=== PATIENT | male | born 1945 | race Caucasian/White ===

== ENCOUNTER → 2016-08-25 | Outpatient (CLI) | payer MEDICARE ==
--- NOTE | 2016-08-25 08:57 | US ---
EXAMINATION TYPE: US carotid duplex BILAT DATE OF EXAM: 08/25/2016 8:29 AM COMPARISON: In pacs CLINICAL HISTORY: R42 Dizziness. Giddiness EXAM MEASUREMENTS: RIGHT: Peak Systolic Velocity (PSV) cm/sec ----- Right CCA: 97.2 ----- Right ICA: 67.1 ----- Right ECA: 97.3 ICA/CCA ratio: 0.7 RIGHT: End Diastole cm/sec ----- Right CCA: 17.7 ----- Right ICA: 18.5 ----- Right ECA: 2.1 LEFT: Peak Systolic Velocity (PSV) cm/sec ----- Left CCA: 94.1 ----- Left ICA: 76.6 ----- Left ECA: 107.0 ICA/CCA ratio: 0.8 LEFT: End Diastole cm/sec ----- Left CCA: 20.6 ----- Left ICA: 22.7 ----- Left ECA: 11.1 VERTEBRALS (direction of flow): Right Vertebral: Antegrade Left Vertebral: Antegrade TECHNOLOGIST IMPRESSION: Bilateral intimal thickening, no elevated velocities, no significant stenos is Right thyroid: 1.6 x 1.2 x 1.2cm complex nodule, 1.5 x 1.2 x 1.4cm cystic nodule Left thyroid: 1.8 x 1.0 x 1.5cm cystic nodule IMPRESSION: I DO NOT SEE EVIDENCE OF A HEMODYNAMICALLY SIGNIFICANT STENOSIS IN EITHER CAROTID SYSTEM. Criteria for Assigning % of Stenosis / Diameter reduction (Estimation based on the indirect measurements of the internal carotid artery velocities (ICA PSV). 1. Normal (no stenosis)=ICA PSV < 125 cm/s: ratio < 2.0: ICA EDV<40 cm/s. 2. Less than 50% stenosis=ICA PSV < 125 cm/s: ratio < 2.0: ICA EDV<40 cm/s. 3. 50 to 69% stenosis=ICA PSV of 125 to 230 cm/s: ration 2.0 ? 4.0: ICA EDV 40-100 cm/s. 4. Greater than 70% stenosis to near occlusion= ICA PSV > 230 cm/s: ratio > 4.0: ICA EDV > 100 cm/s. 5. Near occlusion= ICA PSV velocities may be low or undetectable: variable ratio and ICA EDV. 6. Total occlusion=unable to detect flow.
== END | disposition home or self-care (01) ==
LOC: RADUSWWP 07:51
PROVIDERS: ATTEND Family Medicine
DX: R42 Dizziness and giddiness (principal)
CPT/HCPCS: 93880

== ENCOUNTER 2016-09-09 12:13 | Day surgery (SDC) | payer MEDICARE ==
[~2016-09-09 12:13] MED LIST: ALPRAZolam 0.25 MG TAB PO ONE
[2016-09-09 12:37] VITALS: RESP 14; TEMP 97.7
[2016-09-09 13:44] VITALS: BP 137/71; PULSE 49
--- NOTE | 2016-09-09 14:01 | US ---
ULTRASOUND GUIDED FNA THYROID BIOPSY: CLINICAL HISTORY: Complex right thyroid nodule, right cystic nodule, left cystic nodule FINDINGS: The procedure was explained to the patient. The risks, complications, benefits and alternatives were discussed and any questions were answered. Informed consent was obtained. Patient was placed supin e on the ultrasound table and prepped and draped in the usual sterile fashion. Utilizing a 25 gauge needle, five passes were made into the complex right thyroid nodule. A single pass was made into eac h simple appearing cyst, one within the right lobe and a second within the left lobe. Sample sent to pathology. Patient was stable throughout the procedure. Pathology is pending. All elements of maximal barrier technique were utilized. IMPRESSION: 1. Successful ultrasound guided FNA thyroid biopsy of 3 nodules.
== END 2016-09-09 13:55 | disposition home or self-care (01) ==
LOC: RADPROMAIN 12:13
PROVIDERS: ATTEND Family Medicine
DX: E04.2 Nontoxic multinodular goiter (principal)
CPT/HCPCS: 10022; 76942; 88173; 88305

== ENCOUNTER 2016-10-25 11:20 | Day surgery (SDC) | payer MEDICARE ==
[2016-10-20 13:08] VITALS: BMI 23.7
[~2016-10-25 11:20] MED LIST changes: -ALPRAZolam 0.25 MG TAB PO ONE; +LACTATED RINGERS 1,000 ML IV SCH; +LIDOCAINE 1% 20 ML VIAL (10MG/ML) FOR IV START INTRADERMA PRN
[2016-10-25 12:04] VITALS: RESP 16; TEMP 96.5
[2016-10-25] MEDS ORDERED: LIDOCAINE 1% INJ 10MG/ML (20 ML MDV) ONE (13:50)
[2016-10-25] MEDS ORDERED: PROPOFOL 10 MG/ML 20 ML VIAL IV ONE (13:50)
--- NOTE | 2016-10-25 14:19 | P.PCN ---
Date of Procedure: 10/25/16 Procedure(s) Performed: Procedure: Total colonoscopy. Preoperative diagnosis: Change in bowel habits. Preoperative diagnosis: Exam within normal limits. Preparation: HalfLytely prep. Sedation: Was provided by anesthesia. Brief clinical history: The patient is a 71-year-old male who is referred for this evaluation because of recent change in bowel habits. He seems to be responding to fiber supplement. The patient had no prior colonoscopy and this evaluation is to rule out with confidence neoplasia. Procedure: With the patient on his left lateral decubitus position and after informed consent and adequate sedation, the perianal area was inspected and it did not show any fissures or fistulas. There were no masses felt on digital rectal examination. The Olympus CFQ 160L video colonoscope was then inserted in the rectum in the usual fashion and advanced to the cecum. The mucosa appeared healthy. No polyps or tumors were seen or any obvious diverticular disease or other pathology. I retroflexed endoscope in the rectum before the endoscope was withdrawn. The patient tolerated the procedure well. Plan: The patient was reassured. Will continue current management and he will follow up with you as planned. I will be happy to see in the future if needed.
[2016-10-25 14:48] VITALS: BP 120/65; PULSE 45
== END 2016-10-25 15:23 | disposition home or self-care (01) ==
LOC: ORWHC2ENDO 11:20
DX: R19.4 Change in bowel habit (principal); I48.91 Unspecified atrial fibrillation; I10 Essential (primary) hypertension; E78.5 Hyperlipidemia, unspecified; E07.9 Disorder of thyroid, unspecified; Z79.899 Other long term (current) drug therapy
CPT/HCPCS: 45378; J2001; J2704

== ENCOUNTER → 2017-05-12 | Outpatient (CLI) | payer MEDICARE ==
--- NOTE | 2017-05-12 17:36 | US ---
EXAMINATION TYPE: US thyroid st tissue head/neck DATE OF EXAM: 05/12/2017 COMPARISON: 03/04/2016 CLINICAL HISTORY: E04.1 Thyroid nodule. GLAND SIZE: Right Lobe: 5.3 x 2.3 x 2.1 cm Overall Parenchyma: homogenous Left Lobe: 5.3 x 1.9 x 1.4 cm Overall Parenchyma: homogeneous Isthmus Thickness: 0.2 cm NODULES RIGHT: # of nodules measured on right: 2 largest of multiple 1. 1.2 X 1.1 x 1.0 cm isoechoic mixed nodule at the mid pole with poorly defined margins; interrupt ed peripheral calcification. This nodule is wider than tall and shows intranodular vascularity. Prior size: 1.2 x 1.0 x 1.0 cm 2. 1.5 X 0.7 x 0.7 cm hypoechoic mixed nodule at the lower pole with well-defined margins. This nod ule is wider as is tall and shows no intranodular vascularity. Prior size: 1.7 x 1.6 x 1.1 cm LEFT: # of nodules measured on left: 2 largest of multiple 1. 1.0 X 0.5 x 0.5 cm hypoechoic mixed nodule at the upper pole with well-defined margins. This no dule is wider than tall and shows no intranodular vascularity. Prior size: 1.8 x 1.0 x 1.2 cm 2. 1.0 X 0.7 x 0.6 cm isoechoic mixed nodule at the lower pole with poorly defined margins. This no dule is wider than tall and shows no intranodular vascularity. Prior size: 0.7 x 0.6 x 0.5 cm ISTHMUS: # of nodules measured in the isthmus: 0 Bilateral neck scanned, no evidence of lymphadenopathy. IMPRESSION: Findings are consistent with multinodular goiter. No dominant thyroid mass. No adverse change compare d to old exam.
== END | disposition home or self-care (01) ==
LOC: RADUSWWP 16:14
PROVIDERS: ATTEND Family Medicine
DX: E04.1 Nontoxic single thyroid nodule (principal)
CPT/HCPCS: 76536

== ENCOUNTER → 2017-11-21 | Outpatient (CLI) | payer MEDICARE ==
--- NOTE | 2017-11-21 14:28 | US ---
EXAMINATION TYPE: US thyroid st tissue head/neck DATE OF EXAM: 11/21/2017 COMPARISON: Ultrasound 05/12/2017 CLINICAL HISTORY: E04.1 Nontoxic Single Thyroid Nodule, M79.652 Pain. Follow up thyroid nodules GLAND SIZE: Right Lobe: 6.2 x 2.6 x 2.1 cm Overall Parenchyma: heterogenous Left Lobe: 5.4 x 1.9 x 2.1 cm Overall Parenchyma: heterogeneous Isthmus Thickness: 0.25 cm NODULES RIGHT: # of nodules measured on right: 2 1. 1.2 X 1.1 x 1.0 cm isoechoic mixed nodule at the mid pole with poorly defined margins; . This n odule is wider than tall and shows intranodular vascularity. Prior size: 1.2 x 1.1 x 1.0 cm 2. 1.5 X 0.6 x 1.0 cm mixed nodule at the lower pole with well-defined margins; . This nodule is wi rito than tall and shows no intranodular vascularity. Prior size: 1.5 x 0.7 x 0.7 cm LEFT: # of nodules measured on left: 2 1. 1.3 X 0.8 x 1.1 cm mixed nodule at the upper pole with well-defined margins; . This nodule is w ider than tall and shows no intranodular vascularity. This has increased in size from prior study alt danni a large cystic component with an intramural nodule. Prior size: 1.0 x 0.5 x 0.5 cm 2. 1.0 X 0.6 x 0.9 cm isoechoic mixed nodule at the lower pole with poorly defined margins; . This nodule is wider than tall and shows no intranodular vascularity. Prior size: 1.0 x 0.7 x 0.6 cm ISTHMUS: # of nodules measured in the isthmus: 0 Bilateral neck scanned, normal appearing lymph nodes left neck IMPRESSION: 1. Bilateral thyroid nodules. 2. Left thyroid nodule slightly increased in size from prior study currently measuring 1.3 x 0.8 x 1. 1 cm which previously measured 1.0 x 0.5 x 0.5 cm.
--- NOTE | 2017-11-21 14:30 | US ---
EXAMINATION TYPE: US venous doppler duplex LE LT DATE OF EXAM: 11/21/2017 1:41 PM COMPARISON: NONE CLINICAL HISTORY: E04.1 Nontoxic Single Thyroid Nodule, M79.652 Pain. Weakness left leg after a fall earlier this year (July or August) SIDE PERFORMED: Left TECHNIQUE: The lower extremity deep venous system is examined utilizing real time linear array sonog jennifer with graded compression, doppler sonography and color-flow sonography. VESSELS IMAGED: External Iliac Vein (EIV) Common Femoral Vein Deep Femoral Vein Greater Saphenous Vein * Femoral Vein Popliteal Vein Small Saphenous Vein * Proximal Calf Veins (* superficial vessels) Left Leg: No evidence of DVT as visualized IMPRESSION: 1. No ultrasound evidence deep venous thrombosis left lower extremity.
== END | disposition home or self-care (01) ==
LOC: RADUSWWP 13:13
PROVIDERS: ATTEND Family Medicine
DX: E04.1 Nontoxic single thyroid nodule (principal); M79.652 Pain in left thigh
CPT/HCPCS: 76536

== ENCOUNTER → 2017-12-13 | Outpatient (CLI) | payer MEDICARE ==
--- NOTE | 2017-12-13 16:59 | US ---
EXAMINATION TYPE: US thyroid st tissue head/neck DATE OF EXAM: 12/13/2017 COMPARISON: 11/21/2014 CLINICAL HISTORY: EO4.9 G91.9. GLAND SIZE: Right Lobe: 6.1 x 1.9 x x2.2 cm Overall Parenchyma: homogenous Left Lobe: 4.8 x 1.9 x 2.3 cm Overall Parenchyma: homogeneous Isthmus Thickness: 0.3 cm NODULES RIGHT: # of nodules measured on right: 3 1. 1.1 X 1.0 x 1.1 cm isoechoic nodule at the mid pole with poorly defined margins; . This nodule is wider than tall and shows intranodular vascularity. Prior size: 1.2 x 1.1 x 1.0 cm 2. 1.3 X 0.7 x 1.0 cm hypoechoic cystic nodule at the lower pole with margins; . This nodule is wid er than tall and shows no intranodular vascularity. Prior size: 1.5 x 0.6 x 1.0 cm 3. 0.6 X 0.4 x 0.5 cm hypoechoic mixed nodule at the lower pole with well-defined margins; . This n odule is wider than tall and shows no intranodular vascularity. Prior size: no prior LEFT: # of nodules measured on left: 3 1. 1.2 X 0.9 x 1.1 cm hypoechoic cystic nodule at the upper pole with well-defined margins; . This nodule is wider than tall and shows no intranodular vascularity. Prior size: 1.3 x 0.8 x 1.1 cm 2. 0.5 X 0.4 x 0.5 cm hypoechoic mixed nodule at the lower pole with poorly defined margins; . This nodule is wider than tall and shows no intranodular vascularity. Prior size: 1.0 x 0.6 x 0.9 cm 3. 0.4 X 0.3 x 0.4 cm hypoechoic cystic nodule at the mid pole with well-defined margins; . This no dule is wider than tall and shows no intranodular vascularity. Prior size: no prior ISTHMUS: # of nodules measured in the isthmus: 0 Bilateral neck scanned, no evidence of lymphadenopathy. IMPRESSION: Multiple findings in the thyroid gland bilaterally. No adverse change compared to old exam. This is c onsistent with mild multinodular goiter. No dominant mass.
--- NOTE | 2017-12-13 17:24 | CT ---
EXAMINATION TYPE: CT brain wo con DATE OF EXAM: 12/13/2017 COMPARISON: 11/25/2014 HISTORY: Hydrocephalus CT DLP: 1210 mGycm Automated exposure control for dose reduction was used. FINDINGS: There is enlargement of the ventricles. There is cortical hypodensity that measures 1.5 cm in the pos terior right occipital lobe. There is frontal horn left lateral ventricle extending to the left front al convexity consistent with porencephaly. There is cortical thinning of left posterior frontal lobe. There is no midline shift. There is no sign of intracranial hemorrhage. The calvarium is intact. The re is thinning of the corpus callosum. There is some mucosal thickening in the left maxillary sinus. 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 THIS APPEARS STABLE. SMALL CORTICAL INFARCT RIGHT OCCIPITAL LOBE APPEARS NEW COMPARED TO OLD EXAM.
== END | disposition home or self-care (01) ==
LOC: RADUSMAIN 16:00
PROVIDERS: ATTEND Family Medicine
DX: E04.2 Nontoxic multinodular goiter (principal); G91.1 Obstructive hydrocephalus; I63.9 Cerebral infarction, unspecified
CPT/HCPCS: 70450; 76536

== ENCOUNTER 2017-12-21 17:10 | Inpatient (IN) | payer MEDICARE ==
[2017-12-21] MEDS ORDERED: SODIUM CHLORIDE 0.9% 1,000 ML IV STA (18:07)
[2017-12-21] MEDS ORDERED: METOCLOPRAMIDE 5 MG/ML 2 ML VIAL IVP STA (18:08)
[2017-12-21] MEDS ORDERED: MECLIZINE 12.5 MG TAB PO STA (18:08)
--- NOTE | 2017-12-21 18:13 | ED ---
General Adult HPI - General Chief complaint: Dizziness Stated complaint: DIZZINESS Time Seen by Provider: 12/21/17 18:00 Source: patient, family, RN notes reviewed Mode of arrival: ambulatory Limitations: no limitations - History of Present Illness Initial comments: Patient is a pleasant 72-year-old male presenting to the emergency Department with complaints of dizziness. Patient has a history of some chronic dizziness. Patient was using a weed whacker today and became more dizzy than normal. Patient feels like he is spinning. Symptoms still continue. Symptoms are worse with upright position. Patient is somewhat a poor historian. does help somewhat with providing history. Patient does have a history of previous TIA that had associated dizziness with it. No confusion. No isolated area of weakness. Patient has had difficulty walking since onset of symptoms today. Patient feels off balance. - Related Data Home Medications Medication Instructions Recorded Confirmed Benazepril [Lotensin] 10 mg PO QAM 11/25/14 12/21/17 Finasteride [Proscar] 5 mg PO QAM 11/25/14 12/21/17 Pravastatin Sodium [Pravachol] 40 mg PO QAM 11/25/14 12/21/17 Vit C/E/Zn/Coppr/Lutein/Zeaxan 1 cap PO BID 10/20/16 12/21/17 [Preservision Areds 2 Softgel] Carbidopa-Levodopa 25-100 mg 1.5 tab PO BID@,08/05/17 12/21/17 [Sinemet 25-100] Cholecalciferol [Vitamin D3] 1,000 unit PO DAILY 08/05/17 12/21/17 Multivitamins, Thera [Multivitamin 1 tab PO DAILY 08/05/17 12/21/17 (formulary)] [place]-3 Fatty Acids [[place]-3] 1,000 mg PO DAILY 08/05/17 12/21/17 Propranolol [Inderal] 40 mg PO QAM 08/05/17 12/21/17 amLODIPine [Norvasc] 2.5 mg PO QAM 08/05/17 12/21/17 Amiodarone [Cordarone] 100 mg PO DAILY 12/21/17 12/21/17 OLANZapine [ZyPREXA] 7.5 mg PO HS 12/21/17 12/21/17 Propranolol [Inderal] 20 mg PO HS 12/21/17 12/21/17 Previous Rx's Medication Instructions Recorded Aspirin EC [Ecotrin Low Dose] 81 mg PO DAILY #30 tablet. 11/28/14 Allergies Allergy/AdvReac Type Severity Reaction Status Date / Time No Known Allergies Allergy Verified 12/21/17 18:33 Review of Systems ROS Statement: Those systems with pertinent positive or pertinent negative responses have been documented in the HPI. ROS Other: All systems not noted in ROS Statement are negative. Constitutional: Denies: fever Eyes: Denies: eye pain ENT: Denies: ear pain Respiratory: Denies: cough Cardiovascular: Denies: chest pain Endocrine: Denies: fatigue Gastrointestinal: Denies: abdominal pain Genitourinary: Denies: dysuria Musculoskeletal: Denies: back pain Skin: Denies: rash Neurological: Reports: abnormal gait, vertigo. Denies: headache, weakness, confusion Past Medical History Past Medical History: Atrial Fibrillation, CVA/TIA, Hearing Disorder / Deafness , Hyperlipidemia, Hypertension, Thyroid Disorder History of Any Multi-Drug Resistant Organisms: None Reported Past Surgical History: Hernia Repair, Orthopedic Surgery Additional Past Surgical History / Comment(s): Right femur surgery, thyroid biopsy Past Anesthesia/Blood Transfusion Reactions: No Reported Reaction Past Psychological History: No Psychological Hx Reported Smoking Status: Never smoker Past Alcohol Use History: None Reported Past Drug Use History: None Reported - Past Family History Mother Family Medical History: Cancer General Exam Limitations: no limitations General appearance: alert, in no apparent distress Head exam: Present: atraumatic Eye exam: Present: normal appearance, PERRL, EOMI, nystagmus (Patient does have horizontal nystagmus) ENT exam: Present: normal oropharynx Neck exam: Present: normal inspection Respiratory exam: Present: normal lung sounds bilaterally Cardiovascular Exam: Present: bradycardia GI/Abdominal exam: Present: soft. Absent: tenderness Extremities exam: Present: normal inspection Neurological exam: Present: alert, CN II-XII intact. Absent: motor sensory deficit Expanded Neurological exam: Present: protecting the airway Speech: Present: fluid speech Cranial nerves: EOM's Intact: Normal, Facial Sensation: Normal Cerebellar function: Finger to Nose: Normal Sensory exam: Upper Extremity Light Touch: Normal, Lower Extremity Light Touch: Normal Motor strength exam: RUE: 5, LUE: 5, RLE: 5, LLE: 5 Eye Response: (4) open spontaneously Motor Response: (6) obeys commands Verbal Response: (5) oriented Psychiatric exam: Present: normal affect, normal mood Skin exam: Present: normal color Course Vital Signs 12/21/17 12/21/17 17:17 18:42 Temperature 98.5 F Pulse Rate 52 L 48 L Respiratory 18 16 Rate Blood Pressure 130/73 129/67 O2 Sat by Pulse 98 96 Oximetry EKG Findings - EKG Comments: EKG Findings:: Sinus bradycardia 49. AK 186. QRS 108. QT 468. QTC 422. Normal axis. Normal QRS. T wave inversion V1 through V5 Medical Decision Making - Medical Decision Making Patient reevaluated and resting comfortably in bed. Patient and family updated on results and plan. Dr. Cedillo has been paged for admission, covering for Dr. storey, who admits for Dr. Winters. - Lab Data Result diagrams: 12/21/17 18:30 12/21/17 18:30 Lab Results 12/21/17 12/21/17 12/21/17 Range/Units 18:30 18:30 18:30 WBC 10.4 (3.8-10.6) k/uL RBC 4.57 (4.30-5.90) m/uL Hgb 14.4 (13.0-17.5) gm/dL Hct 42.3 (39.0-53.0) % MCV 92.7 (80.0-100.0) fL MCH 31.6 (25.0-35.0) pg MCHC 34.1 (31.0-37.0) g/dL RDW 13.7 (11.5-15.5) % Plt Count 193 (150-450) k/uL Neutrophils % 78 % Lymphocytes % 14 % Monocytes % 5 % Eosinophils % 2 % Basophils % 1 % Neutrophils # 8.1 H (1.3-7.7) k/uL Lymphocytes # 1.4 (1.0-4.8) k/uL Monocytes # 0.5 (0-1.0) k/uL Eosinophils # 0.2 (0-0.7) k/uL Basophils # 0.1 (0-0.2) k/uL PT (9.0-12.0) sec INR (<1.2) APTT (22.0-30.0) sec Sodium 142 (137-145) mmol/L Potassium 4.7 (3.5-5.1) mmol/L Chloride 109 H (98-107) mmol/L Carbon Dioxide 25 (22-30) mmol/L Anion Gap 8 mmol/L BUN 18 (9-20) mg/dL Creatinine 1.00 (0.66-1.25) mg/dL Est GFR (CKD-EPI)AfAm 86 (>60 ml/min/1.73 sqM) Est GFR (CKD-EPI)NonAf 74 (>60 ml/min/1.73 sqM) Glucose 115 H (74-99) mg/dL Calcium 9.4 (8.4-10.2) mg/dL Total Bilirubin 0.6 (0.2-1.3) mg/dL AST 29 (17-59) U/L ALT 34 (21-72) U/L Alkaline Phosphatase 75 (38-126) U/L Total Creatine Kinase 71 (55-170) U/L Total Protein 6.1 L (6.3-8.2) g/dL Albumin 3.9 (3.5-5.0) g/dL 12/21/17 Range/Units 18:30 WBC (3.8-10.6) k/uL RBC (4.30-5.90) m/uL Hgb (13.0-17.5) gm/dL Hct (39.0-53.0) % MCV (80.0-100.0) fL MCH (25.0-35.0) pg MCHC (31.0-37.0) g/dL RDW (11.5-15.5) % Plt Count (150-450) k/uL Neutrophils % % Lymphocytes % % Monocytes % % Eosinophils % % Basophils % % Neutrophils # (1.3-7.7) k/uL Lymphocytes # (1.0-4.8) k/uL Monocytes # (0-1.0) k/uL Eosinophils # (0-0.7) k/uL Basophils # (0-0.2) k/uL PT 10.2 (9.0-12.0) sec INR 1.0 (<1.2) APTT 22.2 (22.0-30.0) sec Sodium (137-145) mmol/L Potassium (3.5-5.1) mmol/L Chloride (98-107) mmol/L Carbon Dioxide (22-30) mmol/L Anion Gap mmol/L BUN (9-20) mg/dL Creatinine (0.66-1.25) mg/dL Est GFR (CKD-EPI)AfAm (>60 ml/min/1.73 sqM) Est GFR (CKD-EPI)NonAf (>60 ml/min/1.73 sqM) Glucose (74-99) mg/dL Calcium (8.4-10.2) mg/dL Total Bilirubin (0.2-1.3) mg/dL AST (17-59) U/L ALT (21-72) U/L Alkaline Phosphatase (38-126) U/L Total Creatine Kinase (55-170) U/L Total Protein (6.3-8.2) g/dL Albumin (3.5-5.0) g/dL - Radiology Data Radiology results: image reviewed (Chest x-ray shows previous left rib fractures and several scarring. Computed tomography scan of the brain shows hydrocephalus. Old left frontal lobe encephalomalacia.) Disposition Clinical Impression: Ataxia, Hydrocephalus Disposition: ADMITTED IP TO THIS [facility] Referrals: Hugh Winters DO [Primary Care Provider] - 1-2 days Decision Time: 19:23
[2017-12-21 18:49] LABS: Basophils # (A) 0.1 k/uL (0-0.2); Basophils % (A) 1 %; Eosinophils # (A) 0.2 k/uL (0-0.7); Eosinophils % (A) 2 %; HCT 42.3 % (39.0-53.0); HGB 14.4 gm/dL (13.0-17.5); Lymphocytes # (A) 1.4 k/uL (1.0-4.8); Lymphocytes % (A) 14 %; MCH 31.6 pg (25.0-35.0); MCHC 34.1 g/dL (31.0-37.0); MCV 92.7 fL (80.0-100.0); Mean Platelet Volume 8.7; Monocytes # (A) 0.5 k/uL (0-1.0); Monocytes % (A) 5 %; Neutrophils # (A) 8.1 k/uL (1.3-7.7); Neutrophils % (A) 78 %; Platelet Count 193 k/uL (150-450); RBC 4.57 m/uL (4.30-5.90); RDW 13.7 % (11.5-15.5); WBC 10.4 k/uL (3.8-10.6)
[2017-12-21 18:56] LABS: Albumin 3.9 g/dL (3.5-5.0); Calcium 9.4 mg/dL (8.4-10.2); Potassium 4.7 mmol/L (3.5-5.1); Total Bilirubin 0.6 mg/dL (0.2-1.3); Total Protein 6.1 g/dL (6.3-8.2)
[2017-12-21 19:03] LABS: Partial Thromboplastin Time 22.2 sec (22.0-30.0); Prothrombin Time 10.2 sec (9.0-12.0)
--- NOTE | 2017-12-21 19:04 | CT ---
EXAMINATION TYPE: CT brain wo con DATE OF EXAM: 12/21/2017 COMPARISON: 12/13/2017 HISTORY: Dizziness today. CT DLP: 801.5 mGycm Automated exposure control for dose reduction was used. FINDINGS: There is enlargement of the ventricles. There is no mass effect nor midline shift. There is old encep halomalacia in the left frontal lobe with enlargement of frontal horn left lateral ventricle. There i s no evidence of intracranial hemorrhage. The calvarium is intact. IMPRESSION: HYDROCEPHALUS. NO EVIDENCE OF CEREBRAL EDEMA. OLD LEFT FRONTAL LOBE ENCEPHALOMALACIA. NO CHANGE ROSA RED TO OLD EXAM.
[2017-12-21 19:08] LABS: Creatine Kinase 71 U/L (55-170)
--- NOTE | 2017-12-21 19:09 | XR ---
EXAMINATION TYPE: XR chest 2V DATE OF EXAM: 12/21/2017 COMPARISON: August 05, 2017 HISTORY: Dizziness TECHNIQUE: Frontal and lateral views of the chest are obtained. FINDINGS: There are old left-sided healed rib fractures. Heart and mediastinum are within normal hanna its. There is no heart failure. There is minimal density at the left cardiophrenic angle consistent w ith scarring. There is no pleural effusion. Thoracic spine is intact. IMPRESSION: Multiple old left-sided rib fractures. Mild pleural and pulmonary scarring at the left c ardiophrenic angle. No adverse change overall compared to old exam. No evidence of acute lung disease .
[2017-12-21 19:22] LABS: Creatine Kinase MB 0.7 ng/mL (0.0-2.4); Troponin I <0.012 ng/mL (0.000-0.034)
[2017-12-21] MEDS ORDERED: ASPIRIN 325 MG TAB PO STA (19:24)
[2017-12-21 20:48] VITALS: BMI 22.9
[2017-12-21] MEDS ORDERED: PROPRANOLOL 20 MG TAB PO SCH (21:15)
[2017-12-21] MEDS: OLANZapine 2.5 MG TAB PO SCH (21:58)
[2017-12-21] MEDS ORDERED: MECLIZINE 12.5 MG TAB PO PRN (23:04)
--- NOTE | 2017-12-21 23:55 | HP ---
HISTORY AND PHYSICAL DATE OF SERVICE: 12/21/2017 CHIEF COMPLAINT: Dizziness. HISTORY OF PRESENT ILLNESS: This 72-year-old gentleman with a past medical history of TIAs, hydrocephalus with old left frontal stroke, history of spinal meningitis atrial fibrillation, hernia repair, DJD, being followed by Dr. Winters in the outpatient setting, was apparently doing some weed whacking today. The patient felt dizzy. The patient almost fell and the patient felt like the surroundings were spinning and the patient came to [facility] and admitted for further evaluation and treatment. The patient also has some dysarthria. The patient has minimal weakness on the right side. The CT scan of the brain was done which showed evidence of hydrocephalus. No evidence of cerebral edema and old left frontal encephalomalacia. There is no history of any fever, rigors. No history of headache, loss of consciousness, seizures. PAST MEDICAL HISTORY: History of old CVA, TIA, hydrocephalus, atrial fibrillation, CVA, TIA, hypertension, hyperlipidemia, hypothyroidism. MEDICATION PRIOR TO ADMISSION: Include home medications are: 1. Inderal 20 mg q.h.s. and. 2. Norvasc 2.5 mg daily. 3. Vitamin C. 4. Zinc 1 p.o. b.i.d. 5. Inderal 40 mg q.a.m. 6. Propofol 40 mg q.a.m. 7. [place]-3 1000 mg p.o. daily. 8. Zyprexa 7.2 mg q.h.s. 9. Multivitamins 1 p.o. daily. 10.Proscar 5 mg q.a.m. 11.Vitamin D 3000 daily. 12.Sinemet 25/100, 1.5 b.i.d. 13.Lotensin 10 mg q.a.m. 14.Ecotrin 81 mg daily. 15.Cordarone 100 mg p.o. daily. ALLERGIES: None. FAMILY HISTORY: History of cancer in the family. SOCIAL HISTORY: No history of smoking. No history of alcohol intake. REVIEW OF SYSTEMS: ENT: Mentioned earlier. CARDIOVASCULAR: No angina, palpitations. RESPIRATORY: As mentioned earlier. GI: No nausea or vomiting. : No dysuria. NERVOUS: As mentioned earlier. ALLERGY/IMMUNOLOGY: No asthma or hay fever. MUSCULOSKELETAL: As mentioned earlier. HEMATOLOGY/ONCOLOGY: No history of anemia. ENDOCRINE: No history of diabetes, hypothyroidism. CONSTITUTIONAL: As mentioned earlier. DERMATOLOGY: Negative. RHEUMATOLOGY: Negative. PSYCHIATRY: As mentioned earlier. PHYSICAL EXAMINATION: The patient alert, oriented x3. Pulse is 48, blood pressure 139/67, respirations 16, temperature 97.7, pulse ox 96% on 2L. HEENT: Conjunctivae normal. Oral mucosa moist. NECK: No jugular venous distention. No carotid bruits. No lymph node enlargement. CARDIOVASCULAR: S1, S2 muffled. RESPIRATORY: Breath sounds diminished in the bases. No rhonchi. No crackles. ABDOMEN: Soft, nontender. No mass palpable. LEGS: No edema. No swelling. NERVOUS SYSTEM: Higher functions as mentioned earlier. Cranial nerves 2-12 grossly intact. No nystagmus. No diplopia. Otherwise, mild diffuse weakness. Mild diffuse tremors also present. No incoordination. Minimal gait dysfunction present. SKIN: No ulcer, rash or bleeding. LYMPHATIC: No lymphadenopathy in neck or axillae. JOINTS: No active deforming arthropathy. LABS: CBC within normal limits and chloride is 109 and glucose 115. ASSESSMENT: 1. Dizziness, possible acute transient ischemic attack. 2. History of hydrocephalus. 3. Old left frontal encephalomalacia. 4. Atrial fibrillation history. 5. Sinus bradycardia. 6. Cerebrovascular accident, transient ischemic attack. 7. Hearing loss and deafness. 8. Hypertension. 9. Hyperlipidemia. 10.Hypothyroidism. 11.History of hernia repair. RECOMMENDATION AND DISCUSSION: Recommend to continue current medical management, symptomatic treatment and antiplatelet agents. Neurology consultation. Cardiology consultation for bradycardia. Neurovascular workup, including carotid Doppler and 2D echo. The EKG showed nonspecific ST-T changes as well. We will also check a lipid profile to complete the workup, also get a PT, OT evaluation to evaluate for any gait dysfunction as well. I would also recommend DVT prophylaxis as well. The prognosis guarded because of the multiple complex medical issues and use Antivert on a p.r.n. basis. Further recommendations to follow. A copy of this dictation will be forwarded to Dr. Winters, who is the primary physician. TAMY / BRYNN: [id number] / MTDD
--- NOTE | 2017-12-22 00:52 | US ---
EXAMINATION TYPE: US carotid duplex BILAT DATE OF EXAM: 12/21/2017 COMPARISON: 08/25/2016 CLINICAL HISTORY: Stenosis. Dizziness EXAM MEASUREMENTS: RIGHT: Peak Systolic Velocity (PSV) cm/sec ----- Right CCA: 79.8 ----- Right ICA: 75.5 ----- Right ECA: 84.2 ICA/CCA ratio: 0.9 RIGHT: End Diastole cm/sec ----- Right CCA: 12.9 ----- Right ICA: 7.4 ----- Right ECA: 0 LEFT: Peak Systolic Velocity (PSV) cm/sec ----- Left CCA: 78.4 ----- Left ICA: 78.4 ----- Left ECA: 107.4 ICA/CCA ratio: 1.0 LEFT: End Diastole cm/sec ----- Left CCA: 12.9 ----- Left ICA: 10.0 ----- Left ECA: 5.7 VERTEBRALS (direction of flow): Right Vertebral: Antegrade Left Vertebral: Antegrade Rhythm: Normal No significant stenosis seen IMPRESSION: There is antegrade flow in the vertebral arteries. The images and measurements suggest l ess than 25% stenosis in both internal carotid arteries. There is no adverse change compared to old e xam. Criteria for Assigning % of Stenosis / Diameter reduction (Estimation based on the indirect measurements of the internal carotid artery velocities (ICA PSV). 1. Normal (no stenosis)=ICA PSV < 125 cm/s: ratio < 2.0: ICA EDV<40 cm/s. 2. Less than 50% stenosis=ICA PSV < 125 cm/s: ratio < 2.0: ICA EDV<40 cm/s. 3. 50 to 69% stenosis=ICA PSV of 125 to 230 cm/s: ration 2.0 ? 4.0: ICA EDV 40-100 cm/s. 4. Greater than 70% stenosis to near occlusion= ICA PSV > 230 cm/s: ratio > 4.0: ICA EDV > 100 cm/s. 5. Near occlusion= ICA PSV velocities may be low or undetectable: variable ratio and ICA EDV. 6. Total occlusion=unable to detect flow.
[2017-12-22] MEDS: HEPARIN SODIUM,PORCINE 5,000 UNIT/ML 1 ML VIAL SQ SCH ×3 (02:27→21:13)
[2017-12-22 06:44] LABS: Appearance,Urine Clear (Clear); Bilirubin,Urine Negative (Negative); Blood,Urine Negative (Negative); Color,Urine Yellow; Glucose,Urine (UA) Negative (Negative); Ketones,Urine Negative (Negative); Leukocyte Esterase,Urine Negative (Negative); Nitrite,Urine Negative (Negative); PH, Urine 5.5 (5.0-8.0); Protein,Urine Negative (Negative); Specific Gravity,Urine 1.011 (1.001-1.035); Urobilinogen,Urine <2.0 mg/dL (<2.0)
[2017-12-22 06:56] LABS: Basophils # (A) 0.1 k/uL (0-0.2); Basophils % (A) 1 %; Eosinophils # (A) 0.2 k/uL (0-0.7); Eosinophils % (A) 4 %; Lymphocytes # (A) 1.6 k/uL (1.0-4.8); Lymphocytes % (A) 29 %; MCH 31.2 pg (25.0-35.0); MCHC 33.4 g/dL (31.0-37.0); MCV 93.2 fL (80.0-100.0); Mean Platelet Volume 8.6; Monocytes # (A) 0.4 k/uL (0-1.0); Monocytes % (A) 7 %; Neutrophils # (A) 3.2 k/uL (1.3-7.7); Neutrophils % (A) 57 %; Platelet Count 179 k/uL (150-450); RBC 4.18 m/uL (4.30-5.90); RDW 13.6 % (11.5-15.5); WBC 5.5 k/uL (3.8-10.6)
[2017-12-22 07:08] LABS: Calcium 8.7 mg/dL (8.4-10.2); Potassium 3.9 mmol/L (3.5-5.1)
[2017-12-22] MEDS: PRAVASTATIN SODIUM 40 MG TAB PO SCH (08:11)
[2017-12-22] MEDS: AMIODARONE 100 MG TAB PO SCH (08:11)
[2017-12-22] MEDS: CHOLECALCIFEROL 1,000 UNIT TAB PO SCH (08:11)
[2017-12-22] MEDS: ASPIRIN 81 MG PO SCH (08:11)
[2017-12-22] MEDS: VIT A,C & E-LUTEIN-MINERALS 1 EACH TAB PO SCH ×2 (08:11→21:18)
[2017-12-22] MEDS: FINASTERIDE 5 MG TAB PO SCH (08:11)
[2017-12-22] MEDS ORDERED: LISINOPRIL 10 MG TAB PO SCH (09:00)
[2017-12-22] MEDS ORDERED: NON-FORMULARY DRUG (Omega-3 Fatty Acids [Omega-3] 1,000 MG) PO SCH (09:00)
[2017-12-22] MEDS ORDERED: amLODIPine 2.5 MG TAB PO SCH (09:00)
[2017-12-22] MEDS ORDERED: ASPIRIN 325 MG TAB PO SCH (09:00)
[2017-12-22] MEDS ORDERED: PROPRANOLOL 40 MG TAB PO SCH (09:00)
[2017-12-22] MEDS: CARBIDOPA-LEVODOPA 25-100 MG 1 EACH TAB PO SCH ×2 (11:37→15:46)
[2017-12-22] MEDS ORDERED: MULTIVITAMINS, THERA 1 EACH TAB PO SCH (12:00)
--- NOTE | 2017-12-22 12:05 | CONS ---
CONSULTATION Mr. Venegas is my patient who I saw in July of 2017. At that time, I reduced his dose of amiodarone because he was complaining of mild dizzy spells and he was also on 20 mg of propranolol. He was taken off Seroquel. His Holter monitor showed heart rates in sinus rhythm in the 50s, normal UT interval. Current reassessment was normal. I do not have any documentation of atrial fibrillation. He presented with recurrent dizzy spells and weakness and wobbliness. No chest pain. No true loss of consciousness. REVIEW OF SYSTEMS: No fever, chills, or rigors. No cough or expectoration. No nausea, vomiting, or diarrhea. No hematuria or dysuria. No strokes or seizures. No skin lesions or musculoskeletal complaints. MEDICATIONS: His medications at home include Norvasc, Inderal 20 mg in the evening, 40 mg in the morning, Zyprexa, Proscar, Sinemet, Lotensin, Cordarone 100 mg daily and Ecotrin. ALLERGIES: No known drug allergies. FAMILY HISTORY: Family history of cancer. SOCIAL HISTORY: No history of smoking or alcohol use. PHYSICAL EXAMINATION: On examination, his pulse rate is in the 40s and 50s. Blood pressure 139/67 mmHg. Respirations are normal. Head and neck examination normal. Heart sounds are normal. Lungs are clear to auscultation. Extremities are warm, no edema. IMPRESSION: Patient complaining with dizziness and unsteadiness and weakness and is on Inderal 40 mg in the morning and 20 mg in the evening. SUGGEST: 1. Hold propranolol completely for now. I would continue the amiodarone 100 mg p.o. daily for now, but stop the propranolol completely. 2. His antihypertensive therapy can also be simplified. He takes both amlodipine and Lotensin and I would simply increase the dose of amlodipine to 5 mg p.o. daily and stop the Lotensin to minimize medications he is on. 3. He does have Parkinson disease and the dose may be split to mg twice daily if needed. 4. Continue telemetry monitoring for bradycardia. 5. Check TSH. MMODL / IJN: [id number] /
--- NOTE | 2017-12-22 12:37 | P.CNNES ---
History of Present Illness Consult date: 12/22/17 Reason for Consult: Patient with dizziness and ataxia with history of hydrocephalus. History of Present Illness: This patient is a 72-year-old right-handed white male who was in his usual state of health yesterday afternoon. Patient states he was outdoors working on his yard using a weed Cheryl and apparently was bent over and doing his normal yard cleaning up with the weed Cheryl. Apparently he suddenly became off balance and felt lightheaded. He continued to do his work outdoors and was able to drive his tractor over to a friend's neighboring home. He then was able to get his tools put away and was able to return to his own home where he sat down for several minutes. He was continuing to have symptoms of lightheadedness and dizziness. He described it as a sense of motion and spinning sensation. He has a history of chronic dizziness in the past. Again he was using the weed Cheryl which caused him to move his head side to side. This may have triggered some symptoms of vertigo for him. He is somewhat of a poor historian but apparently his noted that change in a.m. and decided to have him come to the emergency room yesterday for further evaluation. Patient complained of some difficulty with his gait due to the sense of vertigo. Patient was brought into the emergency room yesterday at [facility]. He was seen in the ER by Dr. Browne. He was sent for a computed tomography scan of the brain which was completed and revealed evidence of chronic hydrocephalus. There was no evidence of cerebral edema. There was an old left frontal lobe area of encephalomalacia. This was compared to a previous CAT scan done on 12/13/2017 and there was no change. Patient does have a history of chronic hydrocephalus in the past. He was extensively evaluated for this condition in 2014 and was seen by neurosurgery. 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 Patient states that he has been doing fine at home in his ability to ambulate. He does not have any restriction due to unsteady gait at home. He denies any urinary incontinence and does not have any symptoms of severe intractable headache. He does have mild confusion at times but this is been stable over the years. Patient does not have classical findings for NPH at this time. His clinical history is more suggesting TIA and possible mild peripheral vestibular disturbance. We would recommend placing him on low dose meclizine to see how he responds. Patient states his symptoms have gotten better since admission to the hospital. He did undergo a carotid Doppler ultrasound yesterday which revealed no significant carotid artery stenosis. He does have a history of mild tremors and parkinsonism and does use low-dose Inderal as well as Sinemet. Overall the patient states he is feeling much better today. We would recommend he continue to work with physical therapy. As noted we would suggest placing him on low dose meclizine for treatment and close monitoring. Neurology is now been consulted for further evaluation and recommendations. Review of Systems Constitutional: Denies chills, Denies fever Eyes: denies blurred vision, denies pain Ears, nose, mouth and throat: Denies headache, Denies sore throat Cardiovascular: Denies chest pain, Denies shortness of breath Respiratory: Denies cough Gastrointestinal: Denies abdominal pain, Denies diarrhea, Denies nausea, Denies vomiting Musculoskeletal: Denies myalgias Integumentary: Denies pruritus, Denies rash Neurological: Denies numbness, Denies weakness Psychiatric: Denies anxiety, Denies depression Endocrine: Denies fatigue, Denies weight change Past Medical History Past Medical History: Atrial Fibrillation, CVA/TIA, Hearing Disorder / Deafness , Hyperlipidemia, Hypertension, Thyroid Disorder Additional Past Medical History / Comment(s): Pt is poor historian states: h his knows everything History of Any Multi-Drug Resistant Organisms: None Reported Past Surgical History: Hernia Repair, Orthopedic Surgery Additional Past Surgical History / Comment(s): Right femur surgery, thyroid biopsy Past Anesthesia/Blood Transfusion Reactions: No Reported Reaction Past Psychological History: No Psychological Hx Reported Smoking Status: Never smoker Past Alcohol Use History: None Reported Past Drug Use History: None Reported - Past Family History Mother Family Medical History: Cancer Medications and Allergies Home Medications Medication Instructions Recorded Confirmed Type Benazepril [Lotensin] 10 mg PO QAM 11/25/14 12/21/17 History Finasteride [Proscar] 5 mg PO QAM 11/25/14 12/21/17 History Pravastatin Sodium [Pravachol] 40 mg PO QAM 11/25/14 12/21/17 History Aspirin EC [Ecotrin Low Dose] 81 mg PO DAILY #30 tablet. 11/28/14 12/21/17 Rx Vit C/E/Zn/Coppr/Lutein/Zeaxan 1 cap PO BID 10/20/16 12/21/17 History [Preservision Areds 2 Softgel] Carbidopa-Levodopa 25-100 mg 1.5 tab PO BID08/05/17 12/21/17 History [Sinemet 25-100] Cholecalciferol [Vitamin D3] 1,000 unit PO DAILY 08/05/17 12/21/17 History Multivitamins, Thera [Multivitamin 1 tab PO DAILY 08/05/17 12/21/17 History (formulary)] [place]-3 Fatty Acids [[place]-3] 1,000 mg PO DAILY 08/05/17 12/21/17 History Propranolol [Inderal] 40 mg PO QAM 08/05/17 12/21/17 History amLODIPine [Norvasc] 2.5 mg PO QAM 08/05/17 12/21/17 History Amiodarone [Cordarone] 100 mg PO DAILY 12/21/17 12/21/17 History OLANZapine [ZyPREXA] 7.5 mg PO HS 12/21/17 12/21/17 History Propranolol [Inderal] 20 mg PO HS 12/21/17 12/21/17 History Allergies Allergy/AdvReac Type Severity Reaction Status Date / Time No Known Allergies Allergy Verified 12/21/17 18:33 Physical Examination - Vital Signs Vital Signs: Vital Signs Temp Pulse Pulse Resp BP BP Pulse Ox 12/22/17 04:00 97.8 F 52 L 16 153/74 94 L 12/22/17 00:00 97.7 F 54 L 16 106/59 97 12/21/17 20:30 97.7 F 50 L 16 144/70 97 12/21/17 20:16 97.7 F 55 L 18 147/68 97 12/21/17 19:34 53 L 20 143/71 95 12/21/17 18:42 48 L 16 129/67 96 12/21/17 17:17 98.5 F 52 L 18 130/73 98 Intake and Output 12/21/17 12/22/17 12/22/17 22:59 06:59 14:59 Output Total 400 200 Balance -400 -200 Output: Urine 400 200 Other: Voiding Method Urinal Urinal Weight 81 kg 81 kg - Constitutional General appearance: average body habitus, cooperative - EENT EENT: PERRL, mucous membranes moist - Respiratory Respiratory: lungs clear, normal breath sounds - Cardiovascular Cardiovascular: regular rate, normal S1, normal S2 Extremities: no peripheral edema bilaterally - Gastrointestinal Gastrointestinal: normoactive bowel sounds - Integumentary Integumentary: normal - Neurologic Cranial nerve examination: PERRL, EOMI, VFF, V1/V2/V3 grossly intact, face symmetric, tongue midline, intact gag reflex, intact corneal reflex, normal palatal elevation Speech examination: intact Sensorimotor examination: intact Motor examination - right side: 4/5: biceps, triceps, wrist flexion, wrist extension, sonar subsystem equipment operator, hip flexors, knee extensors, dorsiflexion, toe extension (EHL) , plantarflexion Motor examination - left side: 4/5: biceps, triceps, wrist flexion, wrist extension, sonar subsystem equipment operator, hip flexors, knee extensors, dorsiflexion, toe extension (EHL) , plantarflexion Detailed sensory examination: intact Reflex and gait examination: intact Reflexes: 1+: ankle, bicep, knee, tricep Cerebellar examination: ataxia - Musculoskeletal Musculoskeletal: no pain - Psychiatric Psychiatric: mood/affect appropriate, cooperative Results - Laboratory Findings CBC and BMP: 12/22/17 06:14 12/22/17 06:14 Abnormal Lab Findings: Abnormal Labs 12/21/17 12/21/17 12/22/17 18:30 18:30 06:14 RBC Neutrophils # 8.1 H Chloride 109 H 110 H Glucose 115 H Total Protein 6.1 L HDL Cholesterol 35 L 12/22/17 06:14 RBC 4.18 L Neutrophils # Chloride Glucose Total Protein HDL Cholesterol Assessment and Plan (1) Benign positional vertigo Current Visit: Yes Status: Acute Code(s): H81.10 - BENIGN PAROXYSMAL VERTIGO , UNSPECIFIED EAR SNOMED Code(s): 857719424 (2) Chronic brain-hydrocephalus syndrome Current Visit: Yes Status: Acute Code(s): G91.8 - OTHER HYDROCEPHALUS SNOMED Code(s): 23794301 (3) Atrial fibrillation Current Visit: Yes Status: Acute Code(s): I48.91 - UNSPECIFIED ATRIAL FIBRILLATION SNOMED Code(s): 72330401 (4) Weakness Current Visit: No Status: Acute Code(s): R53.1 - WEAKNESS SNOMED Code(s): 08756240 Plan: This patient is a 72-year-old male who was admitted to Hospital with symptoms of dizziness and vertigo that started yesterday while he was working outdoors on his yard. Patient was using a weed Cheryl and was moving his head side to side with a slight bend posture and apparently developed sudden onset of vertigo and dizziness. Prior to this he had been doing quite well and was ambulating easily at home. His symptoms are described as true vertigo and spinning sensation. He was able to get into the home and was able to sit down and his symptoms did seem to improve. He does have history of atrial fibrillation and apparently complained of some slurring of his speech which is improved today. He has multiple medical problems including a history of chronic hydrocephalus. This was evaluated extensively in 2015. He was seen by neurosurgery at the time and did not require any surgical intervention. Patient 's CAT scan also reveals stable findings with no change in the area of hydrocephalus. He also was noted to have some symptoms of bradycardia on admission and is to be evaluated by cardiology. His neurological examination at this time is nonfocal. Would recommend placing him on low-dose Antivert as a short-term treatment and close monitoring. Carotid Doppler study was negative for any carotid artery stenosis. Speech seems to be near baseline for him with no worsening aphasia. CAT scan of the brain failed to reveal any evidence of acute stroke. We will continue close neurological follow-up for the patient. His overall prognosis at this time remains guarded. Time with Patient: Greater than 30
--- NOTE | 2017-12-22 14:02 | ECHOF ---
Referral Reason:Thrombus MEASUREMENTS -------- HEIGHT: 182.9 cm WEIGHT: 80.7 kg BP: 153/74 IVSd: 1.5 cm (0.6 - 1.1) LVIDd: 4.3 cm (3.9 - 5.3) LVPWd: 1.5 cm (0.6 - 1.1) IVSs: 1.7 cm LVIDs: 3.8 cm LVPWs: 1.3 cm LA Diam: 4.3 cm (2.7 - 3.8) LAESV Index (A-L): 30.30 ml/m Ao Diam: 3.5 cm (2.0 - 3.7) AV Cusp: 2.4 cm (1.5 - 2.6) LA Diam: 3.6 cm (2.7 - 3.8) MV EXCURSION: 21.866 mm (> 18.000) MV EF SLOPE: 154 mm/s (70 - 150) EPSS: 0.2 cm MV E Sunil: 0.56 m/s MV DecT: 177 ms MV A Sunil: 0.58 m/s MV E/A Ratio: 0.96 RAP: 5.00 mmHg RVSP: 45.17 mmHg FINDINGS -------- Sinus rhythm. This was a technically adequate study. The left ventricular size is normal. There is moderate concentric left ventricular hypertrophy. O verall left ventricular systolic function is low-normal with, an EF between 50 - 55 %. The right ventricle is normal in size. The left atrium is mildly dilated. LA is moderately dilated 34-39 ml/m2 The right atrial size is normal. The aortic valve is trileaflet, and appears structurally normal. No aortic stenosis or regurgitation. Mild mitral annular calcification present. Mild mitral regurgitation is present. Mild tricuspid regurgitation present. There is mild to moderate pulmonary hypertension. The right ventricular systolic pressure, as measured by Doppler, is 45.17mmHg. Trace/mild (physiologic) pulmonic regurgitation. The aortic root size is normal. There is no pericardial effusion. CONCLUSIONS -------- 1. The left ventricular size is normal. 2. There is moderate concentric left ventricular hypertrophy. 3. Overall left ventricular systolic function is low-normal with, an EF between 50 - 55 %. 4. The right ventricle is normal in size. 5. The left atrium is mildly dilated. 6. LA is moderately dilated 34-39 ml/m2 7. The right atrial size is normal. 8. The aortic valve is trileaflet, and appears structurally normal. No aortic stenosis or regurgitati on. 9. Mild mitral annular calcification present. 10. Mild mitral regurgitation is present. 11. Mild tricuspid regurgitation present. 12. There is mild to moderate pulmonary hypertension. 13. The right ventricular systolic pressure, as measured by Doppler, is 45.17mmHg. 14. Trace/mild (physiologic) pulmonic regurgitation. 15. The aortic root size is normal. 16. There is no pericardial effusion. FULL SERVICE VENDING DRIVER: Jami Vasquez RDCS
--- NOTE | 2017-12-22 18:23 | DS ---
DISCHARGE SUMMARY DATE OF SERVICE: 12/22/2017. FINAL DIAGNOSES: 1. Dizziness, possibly benign positional vertigo, possible transient ischemic attack. 2. History of hydrocephalus. 3. 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 4. Atrial fibrillation history. 5. Sinus bradycardia. 6. Cerebrovascular accident, transient ischemic attack. 7. Hearing loss and deafness. 8. Hypertension. 9. Hyperlipidemia. 10.Hypothyroidism. 11.History of hernia repair. DISCHARGE DISPOSITION: The patient will be discharged in stable condition with guarded prognosis. Patient is extremely keen on going home. The patient is stable at this time, seen by Cardiology and Neurology. HISTORY OF PRESENT ILLNESS: This 72-year-old woman with a past history of multiple medical problems admitted with dizziness, possible TIA and history of TIA. The patient had features of hydrocephalus and old left frontal encephalomalacia. The patient was treated symptomatically and lipid panel was normal. EXAM: VITALS: Stable. CARDIOVASCULAR: S1, S2 muffled. ABDOMEN: Soft. NERVOUS SYSTEM: Nonfocal except a minimal diffuse weakness and some tremors, which are improved. Discharged diet is cardiac. Activity limited until followup. Follow up with Dr. Winters in 2-3 days. Follow up with Neurology is advised. MEDICATIONS: 1. Cordarone 100 mg p.o. daily. 2. Norvasc 5 mg p.o. q.a.m. 3. Ecotrin 81 mg p.o. daily. 4. Lipitor 20 mg q.h.s. 5. Captopril 25/100, 1.5 tablets p.o. b.i.d. 6. Vitamin D3 1000 daily. 7. Proscar 5 mg q.a.m. 8. Antivert 12.5 mg t.i.d. for 3 days and then p.r.n. 9. Multivitamins 1 p.o. daily. 10.Zyprexa 7.5 mg q.h.s. 11.[place]-3 1000 mg daily. 12.Pravachol 40 mg q.a.m. 13.Vitamin E, zinc, copper, lutein 1 capsule p.o. b.i.d. Once again, the patient will be discharged in stable condition with a guarded prognosis. MMODL / IJN: [id number] /
[2017-12-22] MEDS: OLANZapine 2.5 MG TAB PO SCH (21:18)
[2017-12-22] MEDS: MECLIZINE 12.5 MG TAB PO SCH (21:18)
[2017-12-23] MEDS ORDERED: amLODIPine 5 MG TAB PO SCH (09:00)
[2017-12-23 09:10] VITALS: BP 121/64; PULSE 54; RESP 18; TEMP 98.3
[2017-12-23] MEDS: VIT A,C & E-LUTEIN-MINERALS 1 EACH TAB PO SCH (09:26)
[2017-12-23] MEDS: FINASTERIDE 5 MG TAB PO SCH (09:27)
[2017-12-23] MEDS: AMIODARONE 100 MG TAB PO SCH (09:27)
[2017-12-23] MEDS: PRAVASTATIN SODIUM 40 MG TAB PO SCH (09:27)
[2017-12-23] MEDS: ASPIRIN 81 MG PO SCH (09:27)
[2017-12-23] MEDS: HEPARIN SODIUM,PORCINE 5,000 UNIT/ML 1 ML VIAL SQ SCH (09:27)
[2017-12-23] MEDS: CHOLECALCIFEROL 1,000 UNIT TAB PO SCH (09:27)
[2017-12-23] MEDS: CARBIDOPA-LEVODOPA 25-100 MG 1 EACH TAB PO SCH (09:27)
[2017-12-23] MEDS: MECLIZINE 12.5 MG TAB PO SCH (09:27)
--- NOTE | 2017-12-23 12:29 | PN ---
PROGRESS NOTE This is a 72-year-old male patient who presented with weakness, lightheadedness, dizziness, and was found to be bradycardic. He was on Inderal along with amiodarone as an outpatient. I had reduced the dose of amiodarone to 100 mg p.o. daily, and in the office chart we had noted that his Inderal dose was 20 mg p.o. daily. However, when he came in he was on 20 mg plus 40 mg, which are both being discontinued. He feels a lot better now. He is not dizzy or lightheaded now. Vitals are stable. He is afebrile at 98.3 degrees Fahrenheit. Pulse rate is in the 50s. Afebrile. Blood pressure 121/64 mmHg. Head and neck examination is normal. Heart sounds are normal. He does not have tremors. IMPRESSION: 1. History of atrial fibrillation on low-dose amiodarone. 2. Sick sinus syndrome. 3. Sinus bradycardia exacerbated by beta tamiko use. SUGGEST: Discontinue Inderal completely. Continue statins. Continue low-dose amiodarone. Continue anti-hypertensive therapy. Patient may go home from a cardiac standpoint. We will see him in the office in about 3 weeks. MMODL / IJN: [id number] /
--- NOTE | 2017-12-23 15:55 | P.PN ---
Subjective Progress Note Date: 12/23/17 This patient is a 72-year-old male being evaluated for episode of lightheadedness and dizziness. Patient was admitted to hospital yesterday and underwent extensive evaluation. He did have evidence of bradycardia and cardiology was consulted. He has a known history of chronic hydrocephalus which is unchanged over the past 3 years. He does not require any surgical intervention for this condition. His symptoms suggested possibility of vertigo and vestibular dysfunction. He does have a history of underlying atrial fibrillation and is currently on low dose amiodarone. He also has sick sinus syndrome. He was taken off of Inderal by cardiology as his blood pressures were on the low side of normal as well as bradycardia. He is being seen by cardiology were clearing him for discharge. Patient neurologically remains stable. He may continue on low-dose Antivert for treatment of mild vertigo symptoms. He may wean off over the next 3-4 weeks as he responds. Patient may follow-up in the outpatient neurology clinic as needed. His overall prognosis at this time remains guarded. Objective - Vital Signs Vital signs: Vital Signs Temp 98.3 F 12/23/17 08:00 Pulse 54 L 12/23/17 12:00 Resp 18 12/23/17 12:00 BP 121/64 12/23/17 08:00 Pulse Ox 93 L 12/23/17 08:00 Intake & Output 12/22/17 12/23/17 12/23/17 18:59 06:59 18:59 Intake Total 1200 360 Output Total 350 Balance 850 360 Weight 81 kg Intake: Oral 1200 360 Output: Urine 350 Other: Voiding Method Urinal Urinal # Voids 2 1 1 - Exam Physical examination: PHYSICAL EXAMINATION: Patient is resting comfortably in bed. VITAL SIGNS: Blood pressure is [121/64]. Heart rate is [54]. Respiration is [18] . Temperature is [98.3]. HEENT: Head is atraumatic, neck is supple, there were no carotid bruits. CHEST: Lungs are clear to auscultation and percussion. CARDIAC: S1, S2 normal rate and rhythm. There is no murmur. ABDOMEN: Soft and nontender. Bowel sounds are present. EXTREMITIES: There is no pedal edema. Peripheral pulses are present. Neurological examination: Patient has a nonfocal neurological exam. - Labs CBC & Chem 7: 12/22/17 06:14 12/22/17 06:14 Assessment and Plan (1) Benign positional vertigo Current Visit: Yes Status: Acute Code(s): H81.10 - BENIGN PAROXYSMAL VERTIGO , UNSPECIFIED EAR SNOMED Code(s): 679389164 (2) Chronic brain-hydrocephalus syndrome Current Visit: Yes Status: Acute Code(s): G91.8 - OTHER HYDROCEPHALUS SNOMED Code(s): 15842279 (3) Atrial fibrillation Current Visit: Yes Status: Acute Code(s): I48.91 - UNSPECIFIED ATRIAL FIBRILLATION SNOMED Code(s): 06460693 (4) Weakness Current Visit: No Status: Acute Code(s): R53.1 - WEAKNESS SNOMED Code(s): 64832455 Plan: This patient is a 72-year-old male being evaluated for episode of lightheadedness and mild vertigo. He underwent computed tomography scan of the brain which revealed evidence of chronic hydrocephalus mostly involving the left ventricle. This is been chronic in nature and unchanged from previous CAT scans dating back to 2015. He was seen by cardiology as he was having episodes of dizziness and bradycardia. He has been taken off of Inderal altogether and is being closely monitored by cardiology. He does have history of underlying sick sinus syndrome and sinus bradycardia likely aggravated by the beta tamiko use. Patient is doing better today. He may benefit from ongoing use of Antivert for the next 3-4 weeks at low dose. He may follow-up in the outpatient neurology clinic as needed. His overall prognosis at this time remains guarded.
--- NOTE | 2017-12-23 16:12 | PN ---
PROGRESS NOTE DATE OF SERVICE: 12/22/2017 This 72-year-old gentleman admitted with multiple medical problems, including including benign positional vertigo, is being closely monitored. The patient had TIA also. No chest pain. No palpitations. No fever. Cardiology is following the patient closely. Patient also had some bradycardia. The patient is on beta blockers. Cardiology recommended stopping Inderal completely. On exam, alert and oriented x3. Pulse 54, blood pressure 139/64, respiration 18, temperature 98.3, pulse ox 93% on room air. HEENT: Conjunctivae normal. NECK: No jugular venous distention. CARDIOVASCULAR SYSTEM: S1, S2 muffled. RESPIRATORY SYSTEM: Breath sounds diminished at the bases. No rhonchi. No crackles. ABDOMEN: Soft, non-tender. LEGS: No edema. No swelling. NERVOUS SYSTEM: No focal deficit. LABS: WBC 5.5, hemoglobin 13.3. ASSESSMENT: 1. Dizziness, possibly benign positional vertigo, possibly transient ischemic attack. 2. Bradycardia. 3. 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 4. Hydrocephalus. 5. Atrial ablation. 6. Cerebrovascular accident, transient ischemic attack. 7. History of hearing loss and deafness. 8. Hypertension. 9. Hyperlipidemia. 10.Hypothyroidism. 11.History of hernia repair. RECOMMENDATIONS AND DISCUSSION: I recommend to continue current medication, continue symptomatic treatment. Otherwise, closely monitor. Low-dose amiodarone to be continued per Cardiology. Further recommendations to follow. MMODL / IJN: [id number] /
--- NOTE | 2017-12-23 17:33 | DS ---
DISCHARGE SUMMARY DATE OF SERVICE: 12/23/2017 This 72-year-old gentleman was admitted dizziness, had possibly benign positional vertigo and the patient was treated symptomatically. Improved significantly. Please refer to my previous dictations for medication list and list of diagnoses. Closely follow with Cardiology and Neurology. TAMY / BRYNN: [id number] /
== END 2017-12-23 16:31 | disposition home or self-care (01) | DRG 149 ==
LOC: EC 17:10 → 6SEL 19:25
PROVIDERS: ADMIT Hospitalist; ATTEND Hospitalist
DX: H81.10 Benign paroxysmal vertigo, unspecified ear (principal); E78.5 Hyperlipidemia, unspecified; E03.9 Hypothyroidism, unspecified; Q03.9 Congenital hydrocephalus, unspecified; I49.5 Sick sinus syndrome; I48.91 Unspecified atrial fibrillation; G93.89 Other specified disorders of brain; I10 Essential (primary) hypertension; R47.1 Dysarthria and anarthria; G20 Parkinson's disease; R41.0 Disorientation, unspecified; H91.90 Unspecified hearing loss, unspecified ear; H55.09 Other forms of nystagmus; M19.90 Unspecified osteoarthritis, unspecified site; Z87.81 Personal history of (healed) traumatic fracture; Z79.899 Other long term (current) drug therapy; Z80.9 Family history of malignant neoplasm, unspecified; Z86.61 Personal history of infections of the central nervous system; Z86.73 Personal history of transient ischemic attack (TIA), and cerebral infarction without residual deficits; Z79.82 Long term (current) use of aspirin; Z98.890 Other specified postprocedural states
CPT/HCPCS: 36415; 70450; 71046; 80048; 80053; 80061; 81003; 82550; 82553; 84484; 85025; 85610; 85730; 93005; 93306; 93880; 96361; 96374; 99285

== ENCOUNTER → 2018-02-12 | Outpatient (CLI) | payer MEDICARE ==
--- NOTE | 2018-02-12 15:16 | US ---
EXAMINATION TYPE: US thyroid st tissue head/neck DATE OF EXAM: 02/12/2018 COMPARISON: US dated 12/13/2017 and 11/24/2014. CLINICAL HISTORY: E04.1 thyroid nodule. follow up GLAND SIZE: Right Lobe: 4.9 x 2.0 x 2.3 cm Overall Parenchyma: heterogenous Left Lobe: 4.9 x 1.7 x 1.7 cm Overall Parenchyma: heterogeneous Isthmus Thickness: 0.3 cm NODULES RIGHT: # of nodules measured on right: 3 1. 0.6 X 0.4 x 0.6 cm hypoechoic mixed nodule at the lower pole with well-defined margins; . This nodule is wider than tall and shows no intranodular vascularity. Prior size: 0.6 x 0.4 x 0.5 cm 2. 1.2 X 0.8 x 1.1 cm hypoechoic cystic nodule at the lower pole with well-defined margins; . This nodule is wider than tall and shows no intranodular vascularity. Prior size: 1.3 x 0.7 x 1.0 cm 3. 1.3 X 1.0 x 1.4 cm hypoechoic mixed nodule at the mid pole with well-defined margins; . This nod ule is wider than tall and shows intranodular vascularity. Prior size: 1.1 x 1.0 x 1.1 cm LEFT: # of nodules measured on left: 3 1. 0.5 X 0.3 x 0.4 cm hypoechoic cystic nodule at the mid pole with well-defined margins; . This no dule is wider than tall and shows intranodular vascularity. Prior size: 0.5 x 0.4 x 0.5 cm 2. 1.1 X 0.8 x 1.1 cm hypoechoic cystic nodule at the upper pole with well-defined margins; . This nodule is wider than tall and shows no intranodular vascularity. Prior size: 1.2 x 0.9 x 1.1 cm 3. 0.4 X 0.2 x 0.4 cm hypoechoic cystic nodule at the mid pole with well-defined margins; interrupte d peripheral calcification. This nodule is wider than tall and shows no intranodular vascularity. Prior size: 0.4 x 0.3 x 0.4 cm ISTHMUS: # of nodules measured in the isthmus: 0 Bilateral neck scanned, no evidence of lymphadenopathy. Nodules as described IMPRESSION: Overall similar size of the bilateral thyroid nodules in a mildly enlarged heterogenous thyroid gland compatible with a multinodular goiter.
== END | disposition home or self-care (01) ==
LOC: RADUSWWP 13:28
PROVIDERS: ATTEND Family Medicine
DX: E04.2 Nontoxic multinodular goiter (principal)
CPT/HCPCS: 76536

== ENCOUNTER 2018-03-14 07:10 | Day surgery (SDC) | payer MEDICARE ==
[2018-03-09 08:11] VITALS: BMI 24.4
[~2018-03-14 07:10] MED LIST changes: -LIDOCAINE 1% 20 ML VIAL (10MG/ML) FOR IV START INTRADERMA PRN; +MOXIFLOXACIN HCL 0.5% DROPS 3 ML BTL OP ONE; +TETRACAINE 0.5% OPHTH (PF) DROPS 4 ML BTL OP ONE; +TIMOLOL 0.5% OPHTH DROPS 5 ML BTL OP ONE
[2018-03-14 08:05] VITALS: RESP 18; TEMP 98.1
[2018-03-14] MEDS: PHENYLEPHRINE 2.5% OPHTH DRP 2ML OP NR ×3 (08:07→08:22)
[2018-03-14] MEDS: CYCLOPENTOLATE 1% OPHTH SOLN 2 ML BTL OP ONE ×3 (08:10→08:27)
[2018-03-14] MEDS ORDERED: LIDOCAINE 1% 20 ML VIAL (10MG/ML) FOR IV START INTRADERMA ONE (08:19)
[2018-03-14] MEDS ORDERED: MIDAZOLAM 2 MG/2 ML VIAL ONE (10:54)
[2018-03-14] MEDS ORDERED: EPINEPHrine (PF) 0.3 ML in BALANCED SALT IRRIG SOLN COMB2 500 ML IRRIGATION ONE (10:58)
[2018-03-14] MEDS ORDERED: BALANCED SALT IRRIG SOLN COMB2 15 ML IRRIG.SOLN IRRIGATION ONE (11:01)
[2018-03-14] MEDS ORDERED: HYALURONATE SODIUM INTRAOCULAR 1 EACH SYRINGE (12MG/ML) INTRAOCULA ONE (11:01)
[2018-03-14] MEDS ORDERED: LIDOCAINE 1% (PF) 10MG/ML VIAL SQ ONE (11:07)
--- NOTE | 2018-03-14 11:21 | P.OP ---
Date of Procedure: 03/14/18 Preoperative Diagnosis: NS & CS Postoperative Diagnosis: same Procedure(s) Performed: PIOL, OS Implants: PCB00 22.50 Anesthesia: MAC Surgeon: Alex Chong Estimated Blood Loss (ml): 0 Pathology: none sent Condition: stable Disposition: same day Indications for Procedure: blurry vision Operative Findings: No complications
--- NOTE | 2018-03-14 11:46 | OP ---
OPERATIVE REPORT DATE OF SURGERY: 03/14/2018 SURGEON: Alex Chong MD ADJUSTER AND INSPECTOR: PREOPERATIVE DIAGNOSIS: Nuclear sclerosis, cortical sclerosis. POSTOPERATIVE DIAGNOSIS: Nuclear sclerosis, cortical sclerosis. OPERATION: Phacoemulsification of cataract and intraocular lens implant of the left eye. ESTIMATED BLOOD LOSS: Zero. SPECIMEN TAKEN: None. NARRATIVE: After obtaining the appropriate consent, the patient was brought to the operating room where the patient was placed under cardiac monitoring and prepped and draped in the usual sterile manner. At the 5 o'clock position a 15 degree super sharp blade was used to create a paracentesis followed by instillation of 1% Xylocaine MPF 50:50 mix with BSS into the anterior chamber. This was followed by viscoelastic Amvisc to stabilize the anterior chamber. At the 3 o'clock position a self-sealing corneal flap incision was created using 2.8 mm dipti keratome. A cystotome was used to initiate a continuous tear capsulorrhexis which was completed with the Utrata forceps. A Binkhorst cannula was used to hydrodissect the lens nucleus followed by hydrodelineation. Phacoemulsification of the lens was performed utilizing phaco chop in 14.18 seconds at 10% power. The remaining cortical material was removed using the irrigation aspiration mode followed by additional 1% Xylocaine MPF into the anterior chamber followed by viscoelastic to stabilize the capsular bag. An MELINDA PCB00 22.5 diopters posterior chamber lens was placed into the capsular bag without difficulty. The remaining viscoelastic material was removed from the anterior chamber with the irrigation/aspiration. Balanced salt solution was used to normalize the intraocular pressure. The incision was checked for watertight integrity. The patient then received two drops of 0.5% timolol followed by two drops Vigamox, was lightly patched and shielded in the usual manner. There were no complications from the procedure. The patient tolerated the procedure well and was returned to recovery in good condition. MMODL / IJN: [id number] /
[2018-03-14 11:55] VITALS: BP 166/78; PULSE 66
== END 2018-03-14 12:13 | disposition home or self-care (01) ==
LOC: OR 07:10
PROVIDERS: ATTEND Ophthalmology
DX: H25.13 Age-related nuclear cataract, bilateral (principal); H25.012 Cortical age-related cataract, left eye; H35.3112 Nonexudative age-related macular degeneration, right eye, intermediate dry stage; H35.3121 Nonexudative age-related macular degeneration, left eye, early dry stage; H17.9 Unspecified corneal scar and opacity; H52.03 Hypermetropia, bilateral; H52.223 Regular astigmatism, bilateral; H52.4 Presbyopia; I10 Essential (primary) hypertension; R25.1 Tremor, unspecified; I48.91 Unspecified atrial fibrillation; H91.90 Unspecified hearing loss, unspecified ear; Z79.899 Other long term (current) drug therapy
CPT/HCPCS: 66984; C1780; J2250; J0171; J2001

== ENCOUNTER 2018-04-11 08:50 | Day surgery (SDC) | payer MEDICARE ==
[2018-04-05 13:49] VITALS: BMI 24.4
[2018-04-11 09:46] VITALS: TEMP 97.2
[2018-04-11] MEDS: PHENYLEPHRINE 2.5% OPHTH DRP 2ML OP NR ×3 (09:46→10:03)
[2018-04-11] MEDS: CYCLOPENTOLATE 1% OPHTH SOLN 2 ML BTL OP ONE ×3 (09:51→10:08)
[2018-04-11] MEDS ORDERED: HYALURONATE SODIUM INTRAOCULAR 1 EACH SYRINGE (12MG/ML) INTRAOCULA ONE (10:51)
[2018-04-11] MEDS ORDERED: LIDOCAINE 1% (PF) 10MG/ML VIAL SQ ONE (10:51)
[2018-04-11] MEDS ORDERED: BALANCED SALT IRRIG SOLN COMB2 15 ML IRRIG.SOLN IRRIGATION ONE (10:51)
[2018-04-11] MEDS ORDERED: MIDAZOLAM 2 MG/2 ML VIAL ONE (10:54)
[2018-04-11] MEDS ORDERED: EPINEPHrine (PF) 0.3 ML in BALANCED SALT IRRIG SOLN COMB2 500 ML IRRIGATION ONE (11:05)
--- NOTE | 2018-04-11 11:18 | P.OP ---
Date of Procedure: 04/11/18 Preoperative Diagnosis: NS & CS & pigment Postoperative Diagnosis: same Procedure(s) Performed: PIOL, OD Implants: PCB00 23.50 Anesthesia: MAC Surgeon: Alex Chong Estimated Blood Loss (ml): 0 Pathology: none sent Condition: stable Disposition: same day Indications for Procedure: blurry vision Operative Findings: No complications
[2018-04-11 11:40] VITALS: RESP 18
[2018-04-11 11:51] VITALS: BP 157/91; PULSE 55
--- NOTE | 2018-04-11 22:49 | OP ---
OPERATIVE REPORT COGNOS ADMINISTRATOR:: PREOPERATIVE DIAGNOSIS:: Nuclear sclerosis. Cortical sclerosis. POSTOPERATIVE DIAGNOSIS:: Nuclear sclerosis. Cortical sclerosis. OPERATION:: Clear cornea phacoemulsification of cataract OD eye. ESTIMATED BLOOD LOSS:: Zero. SPECIMEN TAKEN:: None. NARRATIVE:: After obtaining the appropriate consent, the patient was brought to the Operating Room where the patient was placed under cardiac monitoring and prepped and draped in the usual sterile manner. At the 11 o'clock position a 15 degree super sharp blade was used to create a paracentesis followed by instillation of 1% Xylocaine MPF 50:50 mix with BSS into the anterior chamber. This was followed by Amvisc to stabilize the anterior chamber. At the 9 o'clock position a self-sealing corneal flap incision was created using 2.8 mm dipti keratome. A cystatome was used to initiate a continuous tear capsulorrhexis which was completed with the Utrata forceps. A Binkhorst cannula was used to hydrodissect the lens nucleus followed by hydrodelineation. Phacoemulsification of the lens was performed utilizing phacochop in 12.1 Seconds at 10% power. The remaining cortical material was removed using the irrigation aspiration mode followed by additional 1% Xylocaine MPF into the anterior chamber followed by viscoelastic to stabilize the capsular bag. An MELINDA PZB 00 23.5 diopter posterior chamber lens was placed into the capsular bag without difficulty. The remaining viscoelastic material was removed from the anterior chamber with the irrigation/aspiration. Balanced salt solution was used to normalize the intraocular pressure. The incision was checked for watertight integrity. The patient then received two drops of 0.5% timolol followed by two drops Vigamox, was lightly patched and shielded in the usual manner. There were no complications from the procedure. The patient tolerated the procedure well and was returned to recovery in good condition. MMODL / IJN: [id number] /
== END 2018-04-11 12:21 | disposition home or self-care (01) ==
LOC: OR 08:50
PROVIDERS: ATTEND Ophthalmology
DX: H25.11 Age-related nuclear cataract, right eye (principal); H35.3112 Nonexudative age-related macular degeneration, right eye, intermediate dry stage; H35.3121 Nonexudative age-related macular degeneration, left eye, early dry stage; H17.9 Unspecified corneal scar and opacity; H52.223 Regular astigmatism, bilateral; H52.4 Presbyopia; I10 Essential (primary) hypertension; R25.1 Tremor, unspecified; I25.10 Atherosclerotic heart disease of native coronary artery without angina pectoris; E78.5 Hyperlipidemia, unspecified; I48.91 Unspecified atrial fibrillation; N40.0 Benign prostatic hyperplasia without lower urinary tract symptoms; I69.393 Ataxia following cerebral infarction; I69.398 Other sequelae of cerebral infarction; G91.9 Hydrocephalus, unspecified; Z79.82 Long term (current) use of aspirin; Z79.899 Other long term (current) drug therapy
CPT/HCPCS: 66984; C1780; J2250; J0171; J2001

== ENCOUNTER → 2018-08-15 | Outpatient (CLI) | payer MEDICARE ==
--- NOTE | 2018-08-15 15:26 | US ---
EXAMINATION TYPE: US thyroid st tissue head/neck DATE OF EXAM: 08/15/2018 COMPARISON: 02/12/2018 CLINICAL HISTORY: E04.1 SINGLE THYROID NODULE. GLAND SIZE: Right Lobe: 5.5 x 1.8 x 2.8 cm Overall Parenchyma: homogenous Left Lobe: 5.0 x 1.6 x 2.4 cm Overall Parenchyma: homogeneous Isthmus Thickness: 0.2 cm NODULES RIGHT: # of nodules measured on right: 3 1. 0.6 X 0.4 x 0.5 cm hypoechoic solid nodule at the lower pole with well-defined margins; . This nodule is wider than tall and shows no intranodular vascularity. Prior size: 0.6 x 0.4 x 0.6 cm 2. 1.2 X 0.7 x 1.1 cm hypoechoic cystic nodule at the lower pole with well-defined margins; . This nodule is wider than tall and shows no intranodular vascularity. Prior size: 1.2 x 1.0 x 1.4 cm 3. 1.3 X 1.0 x 1.3 cm isoechoic mixed nodule at the mid pole with well-defined margins; . This nodu le is wider than tall and shows intranodular vascularity. Prior size: 1.3 x 1.2 x 1.4 cm LEFT: # of nodules measured on left: 3 1. 0.5 X 0.4 x 0.7 cm hypoechoic solid nodule at the mid pole with well-defined margins; . This no dule is wider than tall and shows no intranodular vascularity. Prior size: 0.5 x 0.3 x 0.4 cm . X x cm nodule at the 2. 0.7 X 0.5 x 0.7 cm hypoechoic cystic nodule at the upper pole with well-defined margins; . This nodule is wider than tall and shows no intranodular vascularity. Prior size: 1.1 x 0.8 x 1.1 cm 3. 0.5 X 0.4 x 0.7 cm hypoechoic solid nodule at the mid pole with well-defined margins; . This nod ule is wider than tall and shows no intranodular vascularity. Prior size: 0.40.2 x 0.4 x cm x x cm ISTHMUS: # of nodules measured in the isthmus: 0 Bilateral neck scanned, no evidence of lymphadenopathy. IMPRESSION: 1. Stable nonspecific bilateral nodularity. The need to biopsy should be made on a clinical basis.
== END | disposition home or self-care (01) ==
LOC: RADUSWWP 14:13
PROVIDERS: ATTEND Family Medicine
DX: E04.2 Nontoxic multinodular goiter (principal)
CPT/HCPCS: 76536

== ENCOUNTER 2018-08-28 18:50 | Emergency (ER) | payer MEDICARE ==
[2018-08-28 18:56] VITALS: TEMP 98.1
[2018-08-28] MEDS ORDERED: SODIUM CHLORIDE 0.9% 1,000 ML IV STA (19:09)
--- NOTE | 2018-08-28 19:11 | ED ---
Neuro HPI - General Chief Complaint: Neuro Symptoms/Deficit Stated Complaint: neuro deficit Time Seen by Provider: 08/28/18 19:08 Source: patient, RN notes reviewed, old records reviewed Mode of arrival: ambulatory Limitations: no limitations - History of Present Illness Is the patient presenting with stroke symptoms?: No Last Known Well Date: 08/28/18 Last Known Well Time: 20:17 -: minutes(s) Initial Comments: This is a 72-year-old male the ER for evaluation. Patient has Parkinson's like disease or parkinsonism. Patient presented with family today, did have some left-sided leaning, was having left-sided weakness dizziness fall onto his left side. He denies any complaints, currently his weakness has resolved. Well in the restaurant they did sit him up back to level III times a day continue to fall to the left. Location: left arm, left leg History of same: No Place: outdoors (Patient was at dinner) Severity: mild Quality: weak Improves With: time Worsens With: none On Anticoagulants: No Context: sudden onset Associated Symptoms: denies other symptoms Treatments Prior to Arrival: Aspirin - Related Data Home Medications: Home Medications Medication Instructions Recorded Confirmed Finasteride [Proscar] 5 mg PO QAM 11/25/14 08/28/18 Pravastatin Sodium [Pravachol] 40 mg PO QAM 11/25/14 08/28/18 Vit C/E/Zn/Coppr/Lutein/Zeaxan 1 cap PO BID 10/20/16 08/28/18 [Preservision Areds 2 Softgel] Cholecalciferol [Vitamin D3] 1,000 unit PO DAILY 08/05/17 08/28/18 Multivitamins, Thera [Multivitamin 1 tab PO DAILY 08/05/17 08/28/18 (formulary)] [place]-3 Fatty Acids [[place]-3] 1,000 mg PO DAILY 08/05/17 08/28/18 Amiodarone [Cordarone] 100 mg PO DAILY 12/21/17 08/28/18 OLANZapine [ZyPREXA] 10 mg PO HS 04/05/18 08/28/18 Carbidopa-Levodopa 25-100 mg 1 tab PO TID 08/28/18 08/28/18 [Sinemet 25-100] Donepezil HCl [Aricept] 5 mg PO DAILY 08/28/18 08/28/18 Donepezil HCl [Aricept] 10 mg PO DAILY 08/28/18 08/28/18 Previous Rx's Medication Instructions Recorded Aspirin EC [Ecotrin Low Dose] 81 mg PO DAILY #30 tablet. 11/28/14 amLODIPine [Norvasc] 5 mg PO QAM #30 tab 12/22/17 Allergies/Adverse Reactions: Allergies Allergy/AdvReac Type Severity Reaction Status Date / Time No Known Allergies Allergy Verified 08/28/18 20:51 Review of Systems ROS Statement: Those systems with pertinent positive or pertinent negative responses have been documented in the HPI. ROS Other: All systems not noted in ROS Statement are negative. General Exam - General Exam Comments Initial Comments: NIH of 0 Limitations: no limitations General appearance: alert, in no apparent distress Head exam: Present: atraumatic, normocephalic, normal inspection Eye exam: Present: normal appearance, PERRL, EOMI. Absent: scleral icterus, conjunctival injection, periorbital swelling ENT exam: Present: normal exam, mucous membranes moist Neck exam: Present: normal inspection. Absent: tenderness, meningismus, lymphadenopathy Respiratory exam: Present: normal lung sounds bilaterally. Absent: respiratory distress, wheezes, rales, rhonchi, stridor Cardiovascular Exam: Present: regular rate, normal rhythm, normal heart sounds. Absent: systolic murmur, diastolic murmur, rubs, gallop, clicks GI/Abdominal exam: Present: soft, normal bowel sounds. Absent: distended, tenderness, guarding, rebound, rigid Extremities exam: Present: normal inspection, full ROM, normal capillary refill. Absent: tenderness, pedal edema, joint swelling, calf tenderness Back exam: Present: normal inspection Neurological exam: Present: alert, oriented X3, CN II-XII intact Psychiatric exam: Present: normal affect, normal mood Skin exam: Present: warm, dry, intact, normal color. Absent: rash Stroke MDM - Lab Data Result diagrams: 08/28/18 19:09 08/28/18 19:09 Lab Results 08/28/18 08/28/18 08/28/18 Range/Units 19:09 19:09 19:09 WBC 8.9 (3.8-10.6) k/uL RBC 4.86 (4.30-5.90) m/uL Hgb 15.0 (13.0-17.5) gm/dL Hct 46.2 (39.0-53.0) % MCV 95.0 (80.0-100.0) fL MCH 30.7 (25.0-35.0) pg MCHC 32.4 (31.0-37.0) g/dL RDW 13.1 (11.5-15.5) % Plt Count 215 (150-450) k/uL Neutrophils % 75 % Lymphocytes % 15 % Monocytes % 6 % Eosinophils % 2 % Basophils % 1 % Neutrophils # 6.7 (1.3-7.7) k/uL Lymphocytes # 1.3 (1.0-4.8) k/uL Monocytes # 0.5 (0-1.0) k/uL Eosinophils # 0.2 (0-0.7) k/uL Basophils # 0.1 (0-0.2) k/uL PT 10.1 (9.0-12.0) sec INR 0.9 (<1.2) APTT 23.0 (22.0-30.0) sec Sodium 143 (137-145) mmol/L Potassium 4.4 (3.5-5.1) mmol/L Chloride 113 H (98-107) mmol/L Carbon Dioxide 24 (22-30) mmol/L Anion Gap 6 mmol/L BUN 13 (9-20) mg/dL Creatinine 0.99 (0.66-1.25) mg/dL Est GFR (CKD-EPI)AfAm 87 (>60 ml/min/1.73 sqM) Est GFR (CKD-EPI)NonAf 75 (>60 ml/min/1.73 sqM) Glucose 117 H (74-99) mg/dL POC Glucose (mg/dL) (75-99) mg/dL POC Glu Head Filter Press Tender ID Calcium 9.4 (8.4-10.2) mg/dL Total Bilirubin 0.9 (0.2-1.3) mg/dL AST 31 (17-59) U/L ALT 46 (21-72) U/L Alkaline Phosphatase 68 (38-126) U/L Troponin I (0.000-0.034) ng/mL Total Protein 6.5 (6.3-8.2) g/dL Albumin 4.0 (3.5-5.0) g/dL 08/28/18 08/28/18 Range/Units 19:09 19:13 WBC (3.8-10.6) k/uL RBC (4.30-5.90) m/uL Hgb (13.0-17.5) gm/dL Hct (39.0-53.0) % MCV (80.0-100.0) fL MCH (25.0-35.0) pg MCHC (31.0-37.0) g/dL RDW (11.5-15.5) % Plt Count (150-450) k/uL Neutrophils % % Lymphocytes % % Monocytes % % Eosinophils % % Basophils % % Neutrophils # (1.3-7.7) k/uL Lymphocytes # (1.0-4.8) k/uL Monocytes # (0-1.0) k/uL Eosinophils # (0-0.7) k/uL Basophils # (0-0.2) k/uL PT (9.0-12.0) sec INR (<1.2) APTT (22.0-30.0) sec Sodium (137-145) mmol/L Potassium (3.5-5.1) mmol/L Chloride (98-107) mmol/L Carbon Dioxide (22-30) mmol/L Anion Gap mmol/L BUN (9-20) mg/dL Creatinine (0.66-1.25) mg/dL Est GFR (CKD-EPI)AfAm (>60 ml/min/1.73 sqM) Est GFR (CKD-EPI)NonAf (>60 ml/min/1.73 sqM) Glucose (74-99) mg/dL POC Glucose (mg/dL) 134 H (75-99) mg/dL POC Glu Head Filter Press Tender ID Hugh Wilson Calcium (8.4-10.2) mg/dL Total Bilirubin (0.2-1.3) mg/dL AST (17-59) U/L ALT (21-72) U/L Alkaline Phosphatase (38-126) U/L Troponin I <0.012 (0.000-0.034) ng/mL Total Protein (6.3-8.2) g/dL Albumin (3.5-5.0) g/dL - NIH Stroke Scale 1a. Level of Consciousness: (0) alert 1b. LOC Questions: (0) answers correctly 1c. LOC Commands: (0) performs tasks correctly 2. Best Gaze: (0) normal 3. Visual: (0) no visual loss 4. Facial Palsy: (0) normal symmetrical movement 5a. Motor Arm Left: (0) no drift 5b. Motor Arm Right: (0) no drift 6a. Motor Leg Left: (0) no drift 6b. Motor Leg Right: (0) no drift 7. Limb Ataxia: (0) absent 8. Sensory: (0) normal 9. Best Language: (0) no aphasia 10. Dysarthria: (0) normal 11. Extinction/Inattention: (0) no abnormality - Medical Decision Making 69 female the ER for evaluation presents today for evaluation regards to weakness left-sided weakness, symptoms resolved upon arrival CT and CTA are negative for significant acute disease, family chooses to follow Dr. Barnett symptoms remain resolved and patient will be discharged home - Radiology Data Radiology results: report reviewed (CT brain shows old ischemic area, CTA shows 25% stenosis right ICA), image reviewed Past Medical History Past Medical History: Atrial Fibrillation, CVA/TIA, Hearing Disorder / Deafness , Hyperlipidemia, Hypertension, Thyroid Disorder Additional Past Medical History / Comment(s): very IONE, unsteady on feet History of Any Multi-Drug Resistant Organisms: None Reported Past Surgical History: Hernia Repair, Orthopedic Surgery Additional Past Surgical History / Comment(s): Right femur surgery, thyroid biopsy, left cataract Past Anesthesia/Blood Transfusion Reactions: No Reported Reaction Past Psychological History: No Psychological Hx Reported Smoking Status: Never smoker Past Alcohol Use History: None Reported Past Drug Use History: None Reported - Past Family History Mother Family Medical History: Cancer Course Vital Signs 08/28/18 18:53 Temperature 98.1 F Pulse Rate 75 Respiratory 18 Rate Blood Pressure 148/82 O2 Sat by Pulse 95 Oximetry - Reevaluation(s) Reevaluation #1: 08/28/18 21:05 Medical record is reviewed noncontributory Reevaluation #2: 08/28/18 21:05 reevaluated, NIH remains 0. Spoke with family regarding possible neurology consult. Family refusing to see any neurologist in town he wants to quit Dr. Barnett would like to be discharged like to make an appointment to see him tomorrow. Patient without neurological signs now, family made aware that they could increase or change. They're aware they will return if symptoms worsen. Disposition Clinical Impression: Transient cerebral ischemia Disposition: HOME SELF-CARE Condition: Good Instructions (If sedation given, give patient instructions): Transient Ischemic Attack (ED) Is patient prescribed a controlled substance at d/c from ED?: No Referrals: Hugh Winters DO [Primary Care Provider] - 1-2 days
[2018-08-28 19:16] LABS: Glucose,Whole Blood 134 mg/dL (75-99)
[2018-08-28 19:32] LABS: Basophils # (A) 0.1 k/uL (0-0.2); Basophils % (A) 1 %; Eosinophils # (A) 0.2 k/uL (0-0.7); Eosinophils % (A) 2 %; HCT 46.2 % (39.0-53.0); Lymphocytes # (A) 1.3 k/uL (1.0-4.8); Lymphocytes % (A) 15 %; MCH 30.7 pg (25.0-35.0); MCHC 32.4 g/dL (31.0-37.0); Mean Platelet Volume 8.6; Monocytes # (A) 0.5 k/uL (0-1.0); Monocytes % (A) 6 %; Neutrophils # (A) 6.7 k/uL (1.3-7.7); Neutrophils % (A) 75 %; Platelet Count 215 k/uL (150-450); RBC 4.86 m/uL (4.30-5.90); RDW 13.1 % (11.5-15.5); WBC 8.9 k/uL (3.8-10.6)
[2018-08-28 19:41] LABS: Calcium 9.4 mg/dL (8.4-10.2); Potassium 4.4 mmol/L (3.5-5.1); Total Bilirubin 0.9 mg/dL (0.2-1.3); Total Protein 6.5 g/dL (6.3-8.2)
[2018-08-28 19:49] LABS: INR 0.9 (<1.2); Prothrombin Time 10.1 sec (9.0-12.0)
--- NOTE | 2018-08-28 20:18 | CT ---
EXAMINATION TYPE: CT brain wo con for TPA DATE OF EXAM: 08/28/2018 COMPARISON: 12/21/2017 HISTORY: Weakness. FINDINGS: There is mucosal thickening left maxillary sinus. There is cerebral cortical atrophy. There is no mas s effect nor midline shift. There is no sign of intracranial hemorrhage. There is enlargement of the ventricles. There is left frontal lobe encephalomalacia. CT DLP: 1314.8 mGycm Automated exposure control for dose reduction was used. IMPRESSION: HYDROCEPHALUS. OLD LEFT FRONTAL LOBE ENCEPHALOMALACIA. NO ACUTE INTRACRANIAL ABNORMALITY.
--- NOTE | 2018-08-28 20:26 | XR ---
EXAMINATION TYPE: XR chest 2V DATE OF EXAM: 08/28/2018 COMPARISON: 12/21/2017 HISTORY: Altered mental status TECHNIQUE: Frontal and lateral views of the chest are obtained. FINDINGS: There is old left-sided healed rib fractures. There is no heart failure nor confluent pneu koko infiltrate. Old right side rib fracture. There are chest leads. Costophrenic angles are clear. IMPRESSION: No active cardiopulmonary disease. There is new right-sided rib fracture compared to old exam. Left-sided rib fractures unchanged.
--- NOTE | 2018-08-28 20:35 | CT ---
EXAMINATION TYPE: CT angio head neck DATE OF EXAM: 08/28/2018 HISTORY: cva COMPARISON: None CT DLP: 429.8 mGycm. Automated Exposure Control for Dose Reduction was Utilized. TECHNIQUE: CTA scan of the neck is performed with IV Contrast, patient injected with 65cc mL of Isov ue 370, axial images are obtained, coronal and sagittal reformatted images are reviewed. Three-D marlen nstructed images are created on an independent workstation and reviewed. FINDINGS: There is arterial flow in the anterior middle and posterior cerebral arteries. There is arterial flow in the vertebrobasilar artery system. There is normal contrast opacification of the venous sinuses. There is no mass effect. I see no evidence of intracranial aneurysm. There is no evidence of hemodyna lizy stenosis. There is normal branching pattern of the great vessels on the aortic arch. There is bilateral arteria l flow in the subclavian arteries. There is arterial flow in both vertebral arteries. There is arteri al flow in the common internal and external carotid arteries laterally. There is some calcified plaqu e formation at the posterior wall of both proximal internal carotid arteries. There is 25% stenosis a t the proximal right internal carotid artery. There is no evidence of stenosis left internal carotid artery. There is no evidence of carotid or vertebral artery aneurysm or dissection. IMPRESSION: Mild plaque formation at the right carotid artery bifurcation without evidence of hemodyn amic stenosis. Negative CT angiogram of the brain. Left maxillary sinusitis noted.
[2018-08-28 21:22] VITALS: BP 145/72; PULSE 70; RESP 26
== END 2018-08-28 21:30 | disposition home or self-care (01) ==
LOC: EC 18:50
DX: G45.9 Transient cerebral ischemic attack, unspecified (principal); R29.700 NIHSS score 0; E78.5 Hyperlipidemia, unspecified; G20 Parkinson's disease; I48.91 Unspecified atrial fibrillation; Z79.899 Other long term (current) drug therapy; Z86.73 Personal history of transient ischemic attack (TIA), and cerebral infarction without residual deficits
CPT/HCPCS: 36415; 93005; 80053; 84484; 85025; 85610; 85730; 71046; 70496; 70450; 70498; 99285; 96360; Q9967

== ENCOUNTER → 2019-02-18 | Outpatient (CLI) | payer MEDICARE ==
--- NOTE | 2019-02-18 23:07 | US ---
EXAMINATION TYPE: US thyroid st tissue head/neck DATE OF EXAM: 02/18/2019 COMPARISON: Most recent thyroid ultrasound August 15, 2018 CLINICAL HISTORY: E04.9 NONTOXIC GOITER. GLAND SIZE: Right Lobe: 5.5 x 2.8 x 2.0 cm Overall Parenchyma: homogenous Left Lobe: 5.1 x 1.9 x 1.9 cm Overall Parenchyma: homogeneous Isthmus Thickness: 0.1 cm NODULES RIGHT: # of nodules measured on right: 3 1. 0.6 X 0.6 x 0.5 cm hypoechoic mixed nodule at the lower pole with well-defined margins; . This nodule is wider than tall and shows no intranodular vascularity. Prior size: 0.6 x 0.4 x 0.5 cm 2. 0.9 X 0.6 x 1.1 cm hypoechoic cystic nodule at the lower pole with well-defined margins; . This nodule is wider than tall and shows no intranodular vascularity. Prior size: 1.2 x 0.7 x 1.1 cm 3. 1.1 X 1.3 x 1.0 cm isoechoic mixed nodule at the mid pole with well-defined margins; . This nodu le is wider than tall and shows intranodular vascularity. Prior size: 1.3 x 1.0 x 1.3 cm LEFT: # of nodules measured on left: 3 1. 0.5 X 0.4 x 0.5 cm hypoechoic cystic nodule at the mid pole with well-defined margins; . This n odule is wider than tall and shows no intranodular vascularity. Prior size: 0.5 x 0.4 x 0.7 cm 2. 0.5 X 0.3 x 0.4 cm hypoechoic cystic nodule at the mid pole with well-defined margins; . This no dule is wider than tall and shows no intranodular vascularity. Prior size: 0.5 x 0.4 x 0.7 cm 3. 0.4 X 0.4 x 0.3 cm echogenic mixed nodule at the upper pole with poorly defined margins; . This nodule is taller than wide and shows no intranodular vascularity. Prior size: 0.7 x 0.3 x 0.4 cm ISTHMUS: # of nodules measured in the isthmus: 0 Bilateral neck scanned, no evidence of lymphadenopathy. Nodules as described. Redemonstration of normal size thyroid with multiple scattered nodules bilaterally. No significant in terval change. IMPRESSION: As above. No new suspicious nodules identified.
== END | disposition home or self-care (01) ==
LOC: RADUSWWP 15:25
PROVIDERS: ATTEND Family Medicine
DX: E04.1 Nontoxic single thyroid nodule (principal)
CPT/HCPCS: 76536

== ENCOUNTER → 2019-02-19 | Outpatient (CLI) | payer MEDICARE ==
[~2019-02-19] MED LIST changes: +IODINE/POTASS IOD (LUGOLS) BOTTLE TOPICAL ONE; -LACTATED RINGERS 1,000 ML IV SCH; -MOXIFLOXACIN HCL 0.5% DROPS 3 ML BTL OP ONE; -TETRACAINE 0.5% OPHTH (PF) DROPS 4 ML BTL OP ONE; -TIMOLOL 0.5% OPHTH DROPS 5 ML BTL OP ONE
--- NOTE | 2019-02-19 16:00 | NM ---
EXAMINATION TYPE: NM DatScan Brain SPECT DATE OF EXAM: 02/19/2019 COMPARISON: CT brain August 28, 2018 HISTORY: G 25.0 TECHNIQUE: 10 drops of Lugol's solution was administered 1 hour prior to injection as a thyroid bloc harry agent. After the administration of 4.19 mCi I-123 Ioflupane DaTscan. Images obtained 3 hours p ost injection. SPECT images of the brain were acquired with axial and coronal reconstructions. FINDINGS: The DaTSCAN demonstrates balanced striatal loss to the caudate and putamina nucleii in the striata. This appearance is consistent with the loss of the pre-synaptic dopaminergic terminals. IMPRESSION: This abnormal appearance is supportive of a clinical diagnosis of DLB, idiopathic PD, Parkinson?s dem entia complex, or PS.
== END | disposition home or self-care (01) ==
LOC: RADNMMAIN 10:49
PROVIDERS: ATTEND Psychiatry & Neurology Neurology
DX: R93.0 Abnormal findings on diagnostic imaging of skull and head, not elsewhere classified (principal); G25.0 Essential tremor
CPT/HCPCS: 78607; A9584

== ENCOUNTER → 2019-08-19 | Outpatient (CLI) | payer MEDICARE ==
--- NOTE | 2019-08-19 16:22 | US ---
EXAMINATION TYPE: US thyroid st tissue head/neck DATE OF EXAM: 08/19/2019 COMPARISON: 02/18/2019 CLINICAL HISTORY: 73-year-old male E04.9 Thyroid nodule. TECHNIQUE: Multiple sonographic images of the thyroid gland are obtained. FINDINGS: GLAND SIZE: Right Lobe: 5.8 x 2.5 x 1.7 cm Overall Parenchyma: homogenous Left Lobe: 5.8 x 1.9 x 1.9 cm Overall Parenchyma: homogeneous Isthmus Thickness: 0.2 cm NODULES RIGHT: # of nodules measured on right: 3 1. 0.7 X 0.5 x 0.6 cm hypoechoic mixed nodule at the lower pole with well-defined margins; . This nodule is wider than tall and shows no intranodular vascularity. Prior size: 0.6 x 0.6 x 0.5 cm 2. 0.9 X 0.6 x 0.8 cm hypoechoic cystic nodule at the lower pole with well-defined margins; . This nodule is wider than tall and shows no intranodular vascularity. Prior size: 0.9 x 0.6 x 1.1 cm 3. 1.2 X 1.1 x 1.2 cm isoechoic solid nodule at the mid pole with well-defined margins. This nodule is wider than tall and shows intranodular vascularity. Prior size: 1.1 x 1.3 x 1.1 cm LEFT: # of nodules measured on left: 3 1. 0.5 X 0.4 x 0.5 cm hypoechoic cystic nodule at the mid pole with well-defined margins; . This n odule is wider than tall and shows no intranodular vascularity. Prior size: 0.5 x 0.4 x 0.5 cm 2. 0.4 X 0.3 x 0.4 cm hypoechoic cystic nodule at the mid pole with well-defined margins; . This no dule is wider than tall and shows intranodular vascularity. Prior size: 0.5 x 0.3 x 0.4 cm 3. 0.4 X 0.2 x 0.3 cm echogenic mixed nodule at the upper pole with poorly defined margins; . This nodule is wider than tall and shows no intranodular vascularity. Prior size: 0.4 x 0.4 x 0.3 cm ISTHMUS: # of nodules measured in the isthmus: 0 Bilateral neck scanned, no evidence of lymphadenopathy. IMPRESSION: 1. Multiple nodules on both sides with thyromegaly, correlate for multinodular goiter. 2. Nodules are largely unchanged back to 02/18/2019. Dominant solid nodule on the right measures 1.2 x 1.2 cm versus 1.3 x 1.1 cm, previously, unchanged.
== END | disposition home or self-care (01) ==
LOC: RADUSWWP 14:39
PROVIDERS: ATTEND Family Medicine
DX: E04.2 Nontoxic multinodular goiter (principal)
CPT/HCPCS: 76536

== ENCOUNTER → 2020-02-03 | Outpatient (CLI) | payer MEDICARE ==
--- NOTE | 2020-02-03 15:09 | US ---
EXAMINATION TYPE: US thyroid st tissue head/neck DATE OF EXAM: 02/03/2020 COMPARISON: NONE CLINICAL HISTORY: E04.9 goiter. Thyroid nodule GLAND SIZE: Right Lobe: 5.9 x 2.9 x 1.9 cm Overall Parenchyma: homogenous Left Lobe: 5.5 x 1.6 x 1.9 cm Overall Parenchyma: heterogeneous Isthmus Thickness: 2.2 mm NODULES RIGHT: # of nodules measured on right: 3 1. ..8 X .5 x .7 cm hypoechoic mixed nodule at the lower pole with well-defined margins; . This no dule is wider than tall and shows no intranodular vascularity. Prior size: .7 x .5 x .6 cm 2. .6 X .4 x .5 cm cystic nodule at the lower pole with well-defined margins; . This nodule is wide r than tall and shows no intranodular vascularity. Prior size: .5 x .4 x .5 cm 3. 1.3 X 1.2 x 1.2 cm isoechoic solid nodule at the upper pole with well-defined margins; . This no dule is wider than tall and shows intranodular vascularity. Prior size: 1.2 x 1.1 x 1.2 cm LEFT: # of nodules measured on left: 3 1. .5 X .4 x .4 cm mixed nodule at the mid pole with margins; . This nodule is wider than tall and shows no intranodular vascularity. Prior size: .4 x .3 x .4 cm 2. .4 X .5 x .2 cm cystic nodule at the upper pole with well-defined margins; . This nodule is wide r than tall and shows no intranodular vascularity. Prior size: .4x .2 x .3 cm 3. .5 X .3 x .4 cm mixed nodule at the lower pole with well-defined margins; . This nodule is wider than tall and shows no intranodular vascularity. Prior size: .5 x .4 x .5 cm Stable fairly homogeneous normal-sized thyroid with scattered stable small nodules. ISTHMUS: # of nodules measured in the isthmus: 0 Bilateral neck scanned, no evidence of lymphadenopathy. IMPRESSION: No new greater than 1 cm nodules.
== END ==
LOC: RADUSWWP 14:18
PROVIDERS: ATTEND Family Medicine
DX: E04.9 Nontoxic goiter, unspecified (principal)
CPT/HCPCS: 76536

== ENCOUNTER → 2020-04-22 | Outpatient (CLI) | payer MEDICARE ==
--- NOTE | 2020-04-22 16:30 | XR ---
EXAMINATION TYPE: XR chest 2V DATE OF EXAM: 04/22/2020 COMPARISON: Chest x-ray August 28, 2018 HISTORY: Atrial fibrillation. TECHNIQUE: Frontal and lateral views of the chest are obtained. FINDINGS: There is chronic parenchymal change with left basilar linear scarring and/or atelectasis. Right lung is clear. No pleural effusion or pneumothorax seen bilaterally. The cardiac silhouette siz e is stable mildly enlarged. Multiple old posterior lateral left mid rib fracture deformities redemon strated. There is chronic deformity of the posterior lateral right seventh rib. IMPRESSION: Chronic changes and cardiomegaly without acute pulmonary process.
== END | disposition home or self-care (01) ==
LOC: RAD 16:06
PROVIDERS: ATTEND Internal Medicine Clinical Cardiac Electrophysiology
DX: I51.7 Cardiomegaly (principal); J98.4 Other disorders of lung; I48.91 Unspecified atrial fibrillation; Z79.899 Other long term (current) drug therapy
CPT/HCPCS: 71046

== ENCOUNTER → 2020-11-27 | Outpatient (CLI) | payer MEDICARE ==
--- NOTE | 2020-11-27 20:51 | US ---
EXAMINATION TYPE: US thyroid st tissue head/neck DATE OF EXAM: 11/27/2020 COMPARISON: US 2019 CLINICAL HISTORY: E04.9 Nontoxic goiter, unspecified. GLAND SIZE: Right Lobe: 5.7 x 2.2 x 2.0 cm Overall Parenchyma: heterogenous Left Lobe: 5.5 x 1.6 x 1.7 cm Overall Parenchyma: heterogeneous Isthmus Thickness: 0.3 cm NODULES RIGHT: # of nodules measured on right: 2 1. 1.4 X 1.1 x 1.3 cm, mid lateral, solid or almost completely solid, isoechoic nodule, which is wi rito than tall, with ill-defined margins, without echogenic foci. Prior size: 1.3 x 1.2 x 1.2 cm 2. 0.9 X 0.7 x 0.9 cm, mid mid, mixed cystic and solid, hypoechoic nodule, which is wider than tall , with smooth margins, without echogenic foci. Prior size: 0.7 x 0.5 x 0.7 cm LEFT: # of nodules measured on left: 0 ISTHMUS: # of nodules measured in the isthmus: 0 Bilateral neck scanned, no evidence of lymphadenopathy. IMPRESSION: TR 3, mildly suspicious, follow-up ultrasound in 2 years 2017 ACR TI-RADS LEVEL: TR 3 *Highest TI-RADS level nodule reported
== END | disposition home or self-care (01) ==
LOC: RADUSWWP 16:52
PROVIDERS: ATTEND Family Medicine
DX: E04.9 Nontoxic goiter, unspecified (principal)
CPT/HCPCS: 76536

== ENCOUNTER 2021-06-17 08:53 | Emergency (ER) | payer MEDICARE ==
[2021-06-17 09:16] VITALS: RESP 18
[2021-06-17] MEDS ORDERED: OXYMETAZOLINE 0.05% NASL SPRAY 1 SPRAY BOTTLE NASAL STA (09:24)
--- NOTE | 2021-06-17 09:50 | ED ---
General Adult HPI - General Chief complaint: ENT Stated complaint: epistaxis Time Seen by Provider: 06/17/21 09:18 Source: patient, RN notes reviewed, old records reviewed Mode of arrival: wheelchair Limitations: no limitations - History of Present Illness Initial comments: 75 yo female presenting with nosebleed. This was predominantly right nostril. He denies trauma. Denies anticoagulation. States he woke with the nosebleed. His does admit that the home is quite dry this time of year. No URI symptoms. Bleeding had resolved prior to arrival. - Related Data Home Medications Medication Instructions Recorded Confirmed Finasteride [Proscar] 5 mg PO QAM 11/25/14 06/17/21 Amiodarone [Cordarone] 100 mg PO SUWESA 12/21/17 06/17/21 Carbidopa-Levodopa 25-100 mg 3 tab PO BID 08/28/18 06/17/21 [Sinemet 25-100] Donepezil HCl [Aricept] 20 mg PO HS 08/28/18 06/17/21 Primidone [Mysoline] 50 mg PO DAILY 06/17/21 06/17/21 Rosuvastatin [Crestor] 20 mg PO HS 06/17/21 06/17/21 amLODIPine [Norvasc] 2.5 mg PO DAILY 06/17/21 06/17/21 Allergies Allergy/AdvReac Type Severity Reaction Status Date / Time No Known Allergies Allergy Verified 06/17/21 09:16 Review of Systems ROS Statement: Those systems with pertinent positive or pertinent negative responses have been documented in the HPI. ROS Other: All systems not noted in ROS Statement are negative. Past Medical History Past Medical History: Atrial Fibrillation, CVA/TIA, Hearing Disorder / Deafness, Hyperlipidemia, Hypertension, Thyroid Disorder Additional Past Medical History / Comment(s): very [place], unsteady on feet, Parkinson's History of Any Multi-Drug Resistant Organisms: None Reported Past Surgical History: Hernia Repair, Orthopedic Surgery Additional Past Surgical History / Comment(s): Right femur surgery, thyroid biopsy, left cataract Past Anesthesia/Blood Transfusion Reactions: No Reported Reaction Past Psychological History: No Psychological Hx Reported Smoking Status: Never smoker Past Alcohol Use History: None Reported Past Drug Use History: None Reported - Past Family History Mother Family Medical History: Cancer General Exam Limitations: no limitations General appearance: alert, in no apparent distress Head exam: Present: atraumatic, normocephalic Eye exam: Present: normal appearance, PERRL ENT exam: Present: other (Dried blood in the right nare. No active bleeding. Small amount of blood in the posterior oropharynx) Cardiovascular Exam: Present: regular rate, normal rhythm GI/Abdominal exam: Present: soft. Absent: distended, tenderness, guarding, rebound Extremities exam: Present: normal inspection, normal capillary refill. Absent: pedal edema Neurological exam: Present: alert, oriented X3, CN II-XII intact. Absent: motor sensory deficit Psychiatric exam: Present: normal affect, normal mood Skin exam: Present: warm, dry, intact. Absent: cyanosis, diaphoretic Course Vital Signs 06/17/21 09:09 Temperature 97.9 F Pulse Rate 67 Respiratory 18 Rate Blood Pressure 136/81 O2 Sat by Pulse 95 Oximetry Medical Decision Making - Medical Decision Making 75 yo male with nosebleed. There is dry blood in the right nostril. No active bleeding. I did put a nose clamp on in the emergency department. Monitor the patient without rebleeding while in the emergency department. Given an Afrin bottle and nose clamp. They will apply moisturizer and humidifier. Return parameters discussed. Disposition Clinical Impression: Epistaxis Disposition: HOME SELF-CARE Condition: Good Instructions (If sedation given, give patient instructions): Nosebleed (ED) Is patient prescribed a controlled substance at d/c from ED?: No Referrals: Hugh Winters DO [Primary Care Provider] - 1-2 days Time of Disposition: 10:28
[2021-06-17 11:34] VITALS: BP 152/88; PULSE 71; TEMP 98.2
== END 2021-06-17 11:33 | disposition home or self-care (01) ==
LOC: EC 08:53
DX: R04.0 Epistaxis (principal); I10 Essential (primary) hypertension; I48.91 Unspecified atrial fibrillation; E78.5 Hyperlipidemia, unspecified; Z79.899 Other long term (current) drug therapy
CPT/HCPCS: 99283

== ENCOUNTER 2021-12-01 05:37 | Inpatient (IN) | payer MEDICARE ==
[2021-12-01] MEDS ORDERED: MORPHINE SULFATE 4 MG/ML SYRINGE IVP STA (06:14)
--- NOTE | 2021-12-01 06:21 | ED ---
Fall HPI - General Chief Complaint: Fall Stated Complaint: Fall Time Seen by Provider: 12/01/21 06:05 Source: patient, family Mode of arrival: EMS - History of Present Illness Initial Comments: This is a 76-year-old male that presents to the emergency room with a family member after tripping in his bedroom this morning on his way back to bed from the bathroom. Family states that they rearranged his room to make it easier for him and he was disoriented with the lights off and tripped landing on his left hip. He is complaining of left thigh and groin pain. He denies any loss of consciousness, states he did not hit his head. He denies any other injuries. He takes an aspirin daily, no other blood thinners. He does have a history of A. fib, hypertension, Parkinson's MD Complaint: fall -: hour(s) Fall From: standing When Fall Occurred: 1-[address] Fall Occurred: home Loss of Consciousness: none Prolonged Down Time?: no Symptoms Prior to Fall: none Location: other (left hip/thigh) Location - Extremities: Left: Thigh Severity scale (1-10): 8 (with movement) Quality: aching Context: tripped/slipped Associated Symptoms: denies - Related Data Home Medications Medication Instructions Recorded Confirmed Finasteride [Proscar] 5 mg PO DAILY 11/25/14 12/01/21 Amiodarone [Cordarone] 100 mg PO SUWESA 12/21/17 12/01/21 Carbidopa-Levodopa 25-100 mg 2 tab PO TID 08/28/18 12/01/21 [Sinemet 25-100] Donepezil HCl [Aricept] 20 mg PO HS 08/28/18 12/01/21 Primidone [Mysoline] 75 mg PO DAILY 06/17/21 12/01/21 Rosuvastatin [Crestor] 20 mg PO HS 06/17/21 12/01/21 Cenegermin-Bkbj [Oxervate] 1 drop BOTH EYES DIRECTED 12/01/21 12/01/21 Allergies Allergy/AdvReac Type Severity Reaction Status Date / Time No Known Allergies Allergy Verified 12/01/21 07:43 Review of Systems ROS Statement: Those systems with pertinent positive or pertinent negative responses have been documented in the HPI. ROS Other: All systems not noted in ROS Statement are negative. Past Medical History Past Medical History: Atrial Fibrillation, CVA/TIA, Hearing Disorder / Deafness, Hyperlipidemia, Hypertension, Thyroid Disorder Additional Past Medical History / Comment(s): very [place], unsteady on feet, Parkinson's History of Any Multi-Drug Resistant Organisms: None Reported Past Surgical History: Hernia Repair, Orthopedic Surgery Additional Past Surgical History / Comment(s): Right femur surgery, thyroid biopsy, left cataract Past Anesthesia/Blood Transfusion Reactions: No Reported Reaction Past Psychological History: No Psychological Hx Reported Smoking Status: Never smoker Past Alcohol Use History: None Reported Past Drug Use History: None Reported - Past Family History Mother Family Medical History: Cancer General Exam Limitations: no limitations General appearance: alert, in no apparent distress Head exam: Present: atraumatic, normocephalic, normal inspection Eye exam: Present: normal appearance ENT exam: Present: mucous membranes moist Neck exam: Present: normal inspection. Absent: tenderness, meningismus Respiratory exam: Present: normal lung sounds bilaterally. Absent: respiratory distress, accessory muscle use Cardiovascular Exam: Present: regular rate GI/Abdominal exam: Present: soft. Absent: distended, tenderness Left Hip exam: Present: tenderness. Absent: full ROM, swelling, deformity, erythema, external rotation, internal rotation Upper Leg exam: Present: tenderness (pain to the anterior thigh and left groin; position of comfort slightly flexed). Absent: swelling, ecchymosis, deformity, crepitus, erythema Knee exam: Absent: tenderness, swelling Lower Leg exam: Present: normal inspection. Absent: tenderness Ankle exam: Absent: tenderness Foot/Toe exam: Absent: tenderness Neurovascular tendon exam: Present: no vascular compromise. Absent: abnormal cap refill, sensory deficit, extremity cold to touch, pallor, foot drop Neurological exam: Present: alert, oriented X3 Psychiatric exam: Present: normal affect, normal mood Skin exam: Present: warm, dry, normal color. Absent: cyanosis, diaphoretic, petechiae, pallor Course Vital Signs 12/01/21 12/01/21 05:38 07:38 Temperature 98.1 F Pulse Rate 65 69 Respiratory 16 20 Rate Blood Pressure 148/112 181/89 O2 Sat by Pulse 95 96 Oximetry Medical Decision Making - Medical Decision Making X-ray shows a lucent line oriented vertically over the base of the femoral neck indicating possible intertrochanteric nondisplaced fracture of the left femur. Sacroiliac joints are intact. Patient is neurovascularly intact. No open wounds. at bedside requesting Dr. Contreras for orthopedic physician. Yaniv Velasquez was notified and is agreeable to the admission. Case discussed with Dr. Browne. Disposition Clinical Impression: Fall, Hip fracture Disposition: ADMITTED IP TO THIS HOSP Decision Date: 12/01/21 Decision Time: 07:40
--- NOTE | 2021-12-01 06:54 | XR ---
EXAMINATION TYPE: XR Hip LT and AP Pelvis DATE OF EXAM: 12/01/2021 COMPARISON: NONE HISTORY: Left hip pain. Fall TECHNIQUE: 3 views FINDINGS: The pelvic ring is intact. There is a right apparent hip nailing. There is a lucent line or iented vertically over the base of the femoral neck that is suspicious for nondisplaced fracture. I d o not see however cortical break at the superior and inferior cortex. The sacroiliac joints are intac t. IMPRESSION: Possible intertrochanteric nondisplaced fracture of the left femur.
--- NOTE | 2021-12-01 06:56 | XR ---
EXAMINATION TYPE: XR femur LT DATE OF EXAM: 12/01/2021 COMPARISON: NONE HISTORY: Fall. Pain TECHNIQUE: 4 views FINDINGS: The knee joint appears intact. There is a lucent line projected vertically over the base of the femoral neck that could be nondisplaced fracture. The hip joint space is fairly normal. IMPRESSION: Possible nondisplaced intertrochanteric fracture left femur. Oblique views might be helpf ul for further evaluation.
[2021-12-01] MEDS ORDERED: NALOXONE 0.4 MG/ML 1 ML VIAL IV PRN (08:25)
[2021-12-01] MEDS ORDERED: ACETAMINOPHEN TAB 325 MG TAB PO PRN (08:25)
[2021-12-01] MEDS: CARBIDOPA-LEVODOPA 25-100 MG 1 EACH TAB PO SCH ×3 (09:47→22:07)
[2021-12-01] MEDS: AMIODARONE 100 MG TAB PO SCH (09:47)
[2021-12-01] MEDS: FINASTERIDE 5 MG TAB PO SCH (09:48)
[2021-12-01] MEDS: PRIMIDONE 25 MG TAB PO SCH (09:48)
[2021-12-01] MEDS: HYDROmorphone 0.5 MG/0.5 ML SYRINGE IVP PRN ×2 (09:56→17:50)
--- NOTE | 2021-12-01 11:32 | P.HPOR ---
History of Present Illness H&P Date: 12/01/21 Chief Complaint: Left hip fracture Patient is a 76-year-old male who presented to [facility] early this morning after sustaining a fall at home. Patient states that he lost his balance when traveling back from the bathroom to his bedroom and landed directly on the left lower extremity. Patient was unable to weight-bear after the injury. Patient states that he denies hitting his head and did not lose crutch assistance during the fall. Patient was brought to the hospital by EMS. Upon arrival to the hospital, imaging test were done which demonstrated a minimally displaced left intertrochanteric femur fracture. Patient requested our orthopedic service, I was contacted by the ER staff. I was able to review the case might attending Dr. noble. Patient was admitted under our service. Patient was examined today in the ER, he is resting comfortably. He states that the only pain is in the left hip area. He denies any pain involving the right lower extremity, bilateral upper extremities, new onset, thoracic or lumbar pain. Patient does have a history of Parkinson's. Patient does ambulate normally with a walker or cane. Patient does have a history of a previous right femur fracture that was operated on many years ago at this hospital. Patient states most the pain in the left hip is with movement. He currently has the hip flexed to about 90 and rotated externally. Currently patient denies any headaches, lightheadedness, chest pain, shortness of breath, abdominal discomfort, nausea vomiting, fever or chills. Review of Systems Constitutional: Reports as per HPI Past Medical History Past Medical History: Atrial Fibrillation, CVA/TIA, Hearing Disorder / Deafness, Hyperlipidemia, Hypertension, Thyroid Disorder Additional Past Medical History / Comment(s): very [place], unsteady on feet, Parkinson's History of Any Multi-Drug Resistant Organisms: None Reported Past Surgical History: Hernia Repair, Orthopedic Surgery Additional Past Surgical History / Comment(s): Right femur surgery, thyroid biopsy, left cataract Past Anesthesia/Blood Transfusion Reactions: No Reported Reaction Past Psychological History: No Psychological Hx Reported Smoking Status: Never smoker Past Alcohol Use History: None Reported Past Drug Use History: None Reported - Past Family History Mother Family Medical History: Cancer Medications and Allergies Home Medications Medication Instructions Recorded Confirmed Type Finasteride [Proscar] 5 mg PO DAILY 11/25/14 12/01/21 History Amiodarone [Cordarone] 100 mg PO SUWESA 12/21/17 12/01/21 History Carbidopa-Levodopa 25-100 mg 2 tab PO TID 08/28/18 12/01/21 History [Sinemet 25-100] Donepezil HCl [Aricept] 20 mg PO HS 08/28/18 12/01/21 History Primidone [Mysoline] 75 mg PO DAILY 06/17/21 12/01/21 History Rosuvastatin [Crestor] 20 mg PO HS 06/17/21 12/01/21 History Cenegermin-Bkbj [Oxervate] 1 drop BOTH EYES DIRECTED 12/01/21 12/01/21 History Allergies Allergy/AdvReac Type Severity Reaction Status Date / Time No Known Allergies Allergy Verified 12/01/21 07:43 Physical Examination Right lower extremity: No obvious open lesions or sores are present at the extremity, the hip is flexed about 90 and externally rotated. There are no significant areas of erythema or soft tissue swelling Obvious tenderness with palpation of the proximal femur, logroll maneuver reprod uces severe pain. He is unable to straight leg raise Patient demonstrates no point tenderness around the patella, lower leg, foot or ankle Compartments of the upper and lower leg are soft both anteriorly and posteriorly. The calf is soft, no tenderness with palpation Plantar flexion, dorsiflexion, EHL, FHL are intact Dorsalis pedis pulses 2+ General orthopedic exam: Full range of motion in all major muscle groups of the bilateral upper extremities, there is no point tenderness appreciated of the bilateral upper extremities Full range of motion in all major muscle groups the right lower extremity, there is no point tenderness appreciated on exam. Results - Diagnostic results Hip x-ray: report reviewed, image reviewed (X-rays and reports reviewed of the AP pelvis along with left hip/femur. Images demonstrate a minimally displaced left intertrochanteric femur fracture. Moderate osteoarthritic changes are also present in the left hip.) Assessment and Plan Assessment: Minimally displaced left intertrochanteric femur fracture Left hip osteoarthritis Status post fall from standing Other medical comorbidities Plan: I was able to discuss case, this including both physical exam findings and imaging studies with my attending Dr. Noble. Patient was admitted under our orthopedic service with plan for surgical intervention I was able to discuss the operative route with the patient today at bedside, I did let him know that I would contact his and have this conversation with her also. We discussed the risk and benefits of the procedure, this including infection, blood loss, neurovascular injury, abdominal blood clots, and adequate healing of bone, need for further surgery. Patient was a good understanding and would like to proceed. Our plan is to proceed with an intramedullary nail of the left femur on 12/02/2021. Obtain consent Nothing by mouth after midnight Pain control, will utilize both oral and IV pain medication as needed DVT prophylaxis, subcu medication, we'll likely give one dose of heparin today, this will then be started again after surgery Nonweightbearing at this time, we'll likely increase to weight-bear as tolerated after surgery PT/OT evaluation after surgery Walden catheter placement prior to surgery, ok to use bedside urinal until then Medical recommendations Further recommendations to follow Time with Patient: Less than 30
[2021-12-01] MEDS: SODIUM CHLORIDE 0.9% 1,000 ML IV SCH ×2 (12:40→18:42)
[2021-12-01 12:43] LABS: Basophils # (A) 0.1 k/uL (0-0.2); Basophils % (A) 0 %; Eosinophils % (A) 0 %; HCT 43.5 % (39.0-53.0); HGB 14.3 gm/dL (13.0-17.5); Lymphocytes % (A) 6 %; MCH 31.3 pg (25.0-35.0); MCHC 32.8 g/dL (31.0-37.0); MCV 95.5 fL (80.0-100.0); Mean Platelet Volume 8.7; Monocytes # (A) 0.7 k/uL (0-1.0); Monocytes % (A) 4 %; Neutrophils # (A) 13.8 k/uL (1.3-7.7); Neutrophils % (A) 88 %; Platelet Count 210 k/uL (150-450); RBC 4.56 m/uL (4.30-5.90); RDW 13.6 % (11.5-15.5); WBC 15.6 k/uL (3.8-10.6)
[2021-12-01 13:07] LABS: Prothrombin Time 10.7 sec (9.0-12.0)
[2021-12-01 13:12] LABS: Partial Thromboplastin Time 21.9 sec (22.0-30.0)
[2021-12-01 13:14] LABS: ALT 11 U/L (4-49); African American GFR (CKD) >90 (>60 ml/min/1.73 sqM); Albumin 3.9 g/dL (3.5-5.0); Albumin/Globulin Ratio 1.6; Anion Gap 7 mmol/L; Blood Urea Nitrogen 11 mg/dL (9-20); Calcium 8.8 mg/dL (8.4-10.2); Carbon Dioxide 21 mmol/L (22-30); Chloride 111 mmol/L (98-107); Globulin 2.5 g/dL; Glucose 104 mg/dL (74-99); Non-African American GFR(CKD) 83 (>60 ml/min/1.73 sqM); Sodium 139 mmol/L (137-145); Total Bilirubin 0.9 mg/dL (0.2-1.3); Total Protein 6.4 g/dL (6.3-8.2)
[2021-12-01 13:33] LABS: AST 33 U/L (17-59); Alkaline Phosphatase 75 U/L (38-126); Potassium 4.3 mmol/L (3.5-5.1)
[2021-12-01] MEDS: CENEGERMIN BKBJ BOTH EYES SCH ×3 (14:04→20:04)
[2021-12-01] MEDS: ATORVASTATIN 40 MG TAB PO SCH (22:07)
[2021-12-01] MEDS: DONEPEZIL 10 MG TAB PO SCH (22:07)
--- NOTE | 2021-12-01 23:06 | P.CONS ---
History of Present Illness - Reason for Consult Consult date: 12/01/21 Medical management Requesting physician: Mario Murphy - Chief Complaint Fall - History of Present Illness This is a pleasant 76-year-old patient follows Dr. Winters. Chronic stable medical conditions include Parkinson's, atrial fibrillation, hypertension, hyperlipidemia, hypothyroid, hard of hearing. History is obtained by the at the bedside. Some furniture was moved to return patient's room. Patient normally able to get from the house. Does use a cane and a walker when he is outside. Does use a walker to going to get the patient which is quite a distance from the main house. Gait dysfunction because of Parkinson's. Memory has been slowly declining. Normally appetite is good. Has a bowel movement every 2 or 3 days. Patient lost balance and fell. Subsequent fracture of the femur. No history of CAD. No chest pain or shortness of breath. Review of systems: GEN.: Tired EYES: None HEENT: Decreased hearing NECK: None RESPIRATORY: None CARDIOVASCULAR: None GASTROINTESTINAL: None GENITOURINARY: None MUSCULOSKELETAL: Joint pains LYMPHATICS: None HEMATOLOGICAL: None PSYCHIATRY: Forgetful NEUROLOGICAL: Tremors and unsteady gait Past medical history to include: Atrial fibrillation, stroke, hard of hearing, hypertension, hyperlipidemia, h ypothyroid, Parkinson's, gait dysfunction Social history: History of smoking or alcohol. . Daughter Rosina is a POA Family history: Cancer Physical examination: VITAL SIGNS: 97, 65, 18, 136/6099, 95% room air GENERAL: BMI 25.7, declining but awake not in distress. EYES: Pupils equal. Conjunctiva normal. HEENT: External appearance of nose and ears normal, oral cavity grossly normal. Hard of hearing NECK: JVD not raised; masses not palpable. HEART: First and second heart sounds are normal; no edema. LUNGS: Respiratory rate normal; clear to auscultation. ABDOMEN: Soft, nontender, liver spleen not palpable, no masses palpable. PSYCH: Able tonsil simple questions.l. MUSCULOSKELETAL:No Clubbing/cyanosis;muscles-grossly intact. Evidence of OA. Limited range of motion left hip NEUROLOGICAL: Cranial nerves grossly intact; no facial asymmetry, power and sensation grossly intact. Some bradykinesia. LYMPHATICS: No lymph nodes palpable in the axilla and neck. INVESTIGATIONS, reviewed in the clinical context: White count 15.6 hemoglobin 14.3 platelets 210 potassium 4.3 creatinine 0.89 Femur x-ray: Nondisplaced ID fractured left femur. Assessment and plan: -Left femur IT fracture or displacement secondary to mechanical fall/poor balance Pending surgery tomorrow. By Dr. Murphy. 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 Because of risk of fall patient not on anticoagulation Home medications resumed. Subcu Lovenox for DVT prophylaxis. Care was discussed with the patient's at the bedside. Moderate cardiovascular risk: Patient has no active cardiac symptoms. No prior history of CAD. Has limited exercise tolerance because underlying Parkinson's. No cardiac medications to surgery. Stable to proceed with the above risk. Thank you Dr. Patterson Past Medical History Past Medical History: Atrial Fibrillation, CVA/TIA, Hearing Disorder / Deafness, Hyperlipidemia, Hypertension, Thyroid Disorder Additional Past Medical History / Comment(s): very [place], unsteady on feet, Parkinson's History of Any Multi-Drug Resistant Organisms: None Reported Past Surgical History: Hernia Repair, Orthopedic Surgery Additional Past Surgical History / Comment(s): Right femur surgery, thyroid biopsy, left cataract Past Anesthesia/Blood Transfusion Reactions: No Reported Reaction Past Psychological History: No Psychological Hx Reported Smoking Status: Never smoker Past Alcohol Use History: None Reported Past Drug Use History: None Reported - Past Family History Mother Family Medical History: Cancer Medications and Allergies Home Medications Medication Instructions Recorded Confirmed Type Finasteride [Proscar] 5 mg PO DAILY 11/25/14 12/01/21 History Amiodarone [Cordarone] 100 mg PO SUWESA 12/21/17 12/01/21 History Carbidopa-Levodopa 25-100 mg 2 tab PO TID 08/28/18 12/01/21 History [Sinemet 25-100] Donepezil HCl [Aricept] 20 mg PO HS 08/28/18 12/01/21 History Primidone [Mysoline] 75 mg PO DAILY 06/17/21 12/01/21 History Rosuvastatin [Crestor] 20 mg PO HS 06/17/21 12/01/21 History Cenegermin-Bkbj [Oxervate] 1 drop BOTH EYES DIRECTED 12/01/21 12/01/21 History Allergies Allergy/AdvReac Type Severity Reaction Status Date / Time No Known Allergies Allergy Verified 12/01/21 07:43 Physical Exam Vitals: Vital Signs Temp Pulse Resp BP Pulse Ox 12/01/21 10:00 97.0 F L 65 18 136/99 95 12/01/21 07:38 69 20 181/89 96 12/01/21 05:38 98.1 F 65 16 148/112 95 Intake and Output 11/30/21 12/01/21 12/01/21 22:59 06:59 14:59 Other: Weight 90.718 kg Results CBC & Chem 7: 12/01/21 11:32 12/01/21 11:32
[2021-12-02] MEDS: ENOXAPARIN 40 MG/0.4 ML SYRINGE SQ SCH ×2 (01:40→21:59)
[2021-12-02] MEDS: HYDROmorphone 0.5 MG/0.5 ML SYRINGE IVP PRN ×2 (06:20→12:08)
--- NOTE | 2021-12-02 06:40 | XR ---
EXAMINATION TYPE: XR chest 1V portable DATE OF EXAM: 12/02/2021 CLINICAL HISTORY: Presurgical study. TECHNIQUE: Single AP portable upright view of the chest is obtained. COMPARISON: Chest x-ray from April 22, 2020 FINDINGS: Old fractures of the bilateral mid ribs are redemonstrated. Mild cardiomegaly on current st udy. New peripheral left midlung and left basilar opacities. Right lung remains clear. Cardiac silhou ette size is mildly enlarged. Calcified left suprahilar nodules or benign granulomas redemonstrated. IMPRESSION: New peripheral left midlung and left basilar acute infiltrates and/or atelectasis.
[2021-12-02] MEDS: CENEGERMIN BKBJ BOTH EYES SCH ×6 (09:03→18:21)
[2021-12-02] MEDS: FINASTERIDE 5 MG TAB PO SCH (10:12)
[2021-12-02] MEDS: CARBIDOPA-LEVODOPA 25-100 MG 1 EACH TAB PO SCH ×3 (10:12→21:59)
[2021-12-02] MEDS: PRIMIDONE 25 MG TAB PO SCH (10:12)
[2021-12-02] MEDS: SODIUM CHLORIDE 0.9% 1,000 ML IV SCH (13:13)
[2021-12-02] MEDS: LACTATED RINGERS 1,000 ML IV SCH (14:25)
[2021-12-02] MEDS ORDERED: ONDANSETRON 4 MG/2 ML VIAL ONE (14:33)
[2021-12-02] MEDS ORDERED: ONDANSETRON 4 MG/2 ML VIAL IVP ONE (14:38)
[2021-12-02] MEDS ORDERED: DEXAMETHASONE SOD PHOSPHATE 4 MG/ML 1 ML VIAL IVP ONE (14:38)
[2021-12-02 15:57] LABS: Appearance,Urine Clear (Clear); Bilirubin,Urine Negative (Negative); Blood,Urine Large (Negative); Color,Urine Light Yellow; Glucose,Urine (UA) Negative (Negative); Ketones,Urine Negative (Negative); Leukocyte Esterase,Urine Large (Negative); Mucus,Urine Few /hpf; Nitrite,Urine Negative (Negative); Protein,Urine Negative (Negative); RBC,Urine 59 /hpf (0-5); Specific Gravity,Urine 1.013 (1.001-1.035); Squamous Epithelial Cell,Urine <1 /hpf (0-4); Urobilinogen,Urine <2.0 mg/dL (<2.0); WBC,Urine 17 /hpf (0-5)
[2021-12-02] MEDS ORDERED: HYDROcodone/APAP 5-325MG 1 EACH TAB PO PRN (16:07)
[2021-12-02] MEDS ORDERED: SODIUM CHLORIDE 0.9% 100 ML with ceFAZolin 2 GM IV ONE ×2 (16:09)
--- NOTE | 2021-12-02 17:22 | P.OP ---
Date of Procedure: 12/02/21 Preoperative Diagnosis: Left hip intertrochanteric fracture Postoperative Diagnosis: Left hip intertrochanteric fracture Procedure(s) Performed: Trochanteric nailing left hip Implants: Arthrex 13 x 200 x 130 trochanteric nail with a 100 mm lag screw and a 36 mm 5.0 distal locking screw Anesthesia: HOLLY Surgeon: Mario Murphy Component Inspector #1: Urban Velasquez Estimated Blood Loss (ml): 20 Pathology: none sent Condition: stable Disposition: PACU Indications for Procedure: 76-year-old gentleman seen with left hip intertrochanteric fracture. I recommended trochanteric nailing. Patient has family were agreeable. Consent was obtained. Operative Findings: See description of procedure Description of Procedure: Patient was taken to the operative suite. He received preoperative IV antibiotics. He underwent a general anesthetic by the department of anesthesia. He was transferred to the operative/fracture table. The right lower extremity was placed in well-padded well-leg del cid. The left lower extremity was placed in standard traction to include control rotation and adduction. C-arm brought in confirming adequate alignment of the fracture. C-arm pulled back. Left hip prepped and draped in the normal sterile orthopedic fashion. I made an incision just proximal to the greater trochanter sharply through skin. I dissected down to the IT band. I made a longitudinal incision through the IT band. We now placed a guidewire into the proximal trochanteric tip. This was done under C- arm imaging and noted adequate positioning. The pin was driven down into intramedullary canal. We confirmed it intramedullary canal AP and lateral intraoperative imaging. Eyes and anterior. I now chose a 13 x 20 mm trochanteric nail. With an outrigger was slid intramedullary and tapped down into the appropriate position. We now introduced our head neck complex pin guide. An incision was made for that. The guide was placed into the head neck complex. I confirmed adequate alignment under AP and lateral intraoperative imaging. Triple reaming was performed. We have introduced our lag screw with good fixation noted. A last was a locked in position. We made a small incision distally for distal locking screw. We used the outrigger and guide to drill holes for the distal locking screw. I now introduced a 36 mm distal locking screw with good fixation noted. The outrigger was removed. We noted excellent positioning our nail and stable alignment of our fracture. Spot films were obtained document this. The wounds were irrigated. The IT band was a pair with #1 Vicryl. The subcu soft tissues repaired with 2-0 Vicryl. Skin mau were utilized to approximate the skin incisions. Sterile dressings were applied. The patient was awakened and transferred to a bed and recovery stable satisfactory condition. Yaniv ERVIN assisted in all aspects of the procedure.
[2021-12-02] MEDS ORDERED: METOPROLOL TARTRATE 5 MG/5 ML VIAL IVP ONE (17:54)
[2021-12-02] MEDS ORDERED: hydrALAZINE HCL 20 MG/ML 1 ML VIAL IVP ONE (18:18)
[2021-12-02] MEDS: traMADol 50 MG TAB PO SCH ×2 (18:21→21:59)
--- NOTE | 2021-12-02 18:26 | P.PN ---
Progress Note - Text Progress Note Date: 12/02/21 - Chief Complaint Fall This is a pleasant 76-year-old patient follows Dr. Winters. Chronic stable medical conditions include Parkinson's, atrial fibrillation, hypertension, hyperlipidemia, hypothyroid, hard of hearing. History is obtained by the at the bedside. Some furniture was moved to return patient's room. Patient normally able to get from the house. Does use a cane and a walker when he is outside. Does use a walker to going to get the patient which is quite a distance from the main house. Gait dysfunction because of Parkinson's. Memory has been slowly declining. Normally appetite is good. Has a bowel movement every 2 or 3 days. Patient lost balance and fell. Subsequent fracture of the femur. No history of CAD. No chest pain or shortness of breath. December 02: Patient was seen this morning before surgery. Comfortable. at the bedside. Nothing by mouth. Late in the day underwent trochanteric nailing. Active Medications Acetaminophen (Acetaminophen Tab 325 Mg Tab) 650 mg PO Q6HR PRN PRN Reason: Mild Pain or Fever > 100.5 Hydrocodone Bitart/Acetaminophen (Hydrocodone/Apap 5-325mg 1 Each Tab) 1 each PO Q6HR PRN PRN Reason: Pain Amiodarone HCl (Amiodarone 100 Mg Tab) 100 mg PO SuWeSa@0900 [facility] Last Admin: 12/01/21 09:47 Dose: 100 mg Atorvastatin Calcium (Atorvastatin 40 Mg Tab) 40 mg PO [facility] Last Admin: 12/01/21 22:07 Dose: 40 mg Carbidopa/Levodopa (Carbidopa-Levodopa 25-100 Mg 1 Each Tab) 2 each PO TID [facility] Last Admin: 12/02/21 17:30 Dose: Not Given Donepezil HCl (Donepezil 10 Mg Tab) 20 mg PO [facility] Last Admin: 12/01/21 22:07 Dose: 20 mg Enoxaparin Sodium (Enoxaparin 40 Mg/0.4 Ml Syringe) 40 mg SQ [facility] Last Admin: 12/02/21 01:40 Dose: 40 mg Finasteride (Finasteride 5 Mg Tab) 5 mg PO DAILY [facility] Last Admin: 12/02/21 10:12 Dose: Not Given Hydromorphone HCl (Hydromorphone 0.5 Mg/0.5 Ml Syringe) 0.5 mg IVP Q3HR PRN PRN Reason: Moderate Pain Last Admin: 12/02/21 12:08 Dose: 0.5 mg Sodium Chloride (Saline 0.9%) 1,000 mls @ 75 mls/hr IV .[id number] [facility] Last Admin: 12/02/21 13:13 Dose: Not Given Lactated Ringer's (Lactated Ringers) 1,000 mls @ 20 mls/hr IV .Q24H [facility] Last Admin: 12/02/21 14:25 Dose: 800 mls Naloxone HCl (Naloxone 0.4 Mg/Ml 1 Ml Vial) 0.2 mg IV Q2M PRN PRN Reason: Opioid Reversal Non-Formulary Medication (Cenegermin-Bkbj [Oxervate]) 1 drop BOTH EYES 0800,1000,1200,1400,1600,1800 [facility] Last Admin: 12/02/21 18:21 Dose: Not Given Primidone (Primidone 25 Mg Tab) 75 mg PO DAILY [facility] Last Admin: 12/02/21 10:12 Dose: Not Given Tramadol HCl (Tramadol 50 Mg Tab) 50 mg PO QID [facility] Last Admin: 12/02/21 18:21 Dose: Not Given Past medical history to include: Atrial fibrillation, stroke, hard of hearing, hypertension, hyperlipidemia, hypothyroid, Parkinson's, gait dysfunction Social history: History of smoking or alcohol. . Daughter Rosina is a POA Family history: Cancer Physical examination: VITAL SIGNS: 99.3, 73, 17, 163 with 81, 95% on 3 L GENERAL: Reclining, comfortable. EYES: Pupils equal. Conjunctiva normal. HEENT: External appearance of nose and ears normal, oral cavity grossly normal. Hard of hearing NECK: JVD not raised; masses not palpable. HEART: First and second heart sounds are normal; no edema. LUNGS: Respiratory rate normal; clear to auscultation. ABDOMEN: Soft, nontender, liver spleen not palpable, no masses palpable. PSYCH: Able tonsil simple questions.l. MUSCULOSKELETAL:No Clubbing/cyanosis;muscles-grossly intact. Evidence of OA. Limited range of motion left hip NEUROLOGICAL: Cranial nerves grossly intact; no facial asymmetry, power and sensation grossly intact. Some bradykinesia. INVESTIGATIONS, reviewed in the clinical context: White count 15.6 hemoglobin 14.3 platelets 210 potassium 4.3 creatinine 0.89 Femur x-ray: Nondisplaced ID fractured left femur. Assessment and plan: -Left femur IT fracture or displacement secondary to mechanical fall/poor balance Trochanteric nailing done on December 02. By Dr. Murphy. 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 Because of risk of fall patient not on anticoagulation Continue current medication treatment plan. Lovenox for DVT prophylaxis. Thank you Dr. Patterson
--- NOTE | 2021-12-02 19:15 | XR ---
EXAMINATION TYPE: XR Hip Complete LT, FL guidance operating room DATE OF EXAM: 12/02/2021 5:34 PM INDICATION: Patient age:Male; 76 years old; Reason for study: LT Hip Nailing; PHH. COMPARISON: None. Intraoperative fluoroscopic services were provided for internal fixation of a left hip. Total fluoros copy time is 1 minute 6 seconds with a total of 2 submitted images to PACS. Please see the operative note for further details.
[2021-12-02] MEDS: DONEPEZIL 10 MG TAB PO SCH (21:59)
[2021-12-02] MEDS: ATORVASTATIN 40 MG TAB PO SCH (22:00)
[2021-12-03] MEDS: SODIUM CHLORIDE 0.9% 1,000 ML IV SCH ×2 (02:04→15:27)
[2021-12-03 09:19] LABS: Basophils # (A) 0.03 X 10*3/uL (0.00-0.10); Basophils % (A) 0.2 %; Eosinophils # (A) 0.01 X 10*3/uL (0.04-0.35); Eosinophils % (A) 0.1 %; HCT 37.3 % (39.6-50.0); HGB 12.4 g/dL (13.0-17.0); Immature Grans, Automated 0.4 %; Lymphocytes % (A) 5.6 %; MCHC 33.2 g/dL (32.0-37.0); MCV 93.3 fL (80.0-97.0); Monocytes # (A) 1.27 X 10*3/uL (0.20-1.00); Monocytes % (A) 8.8 %; NRBC Per 100 WBC 0 /100 WBCS (0.0-0.0); Neutrophils # (A) 12.19 X 10*3/uL (1.80-7.70); Neutrophils % (A) 84.9 %; Platelet Count 162 X 10*3/uL (140-440); RDW 13.2 % (11.5-14.5); WBC 14.36 X 10*3/uL (4.50-10.00)
[2021-12-03] MEDS: traMADol 50 MG TAB PO SCH ×4 (09:26→20:54)
[2021-12-03] MEDS: PRIMIDONE 25 MG TAB PO SCH (09:27)
[2021-12-03] MEDS: FINASTERIDE 5 MG TAB PO SCH (09:27)
[2021-12-03] MEDS: CARBIDOPA-LEVODOPA 25-100 MG 1 EACH TAB PO SCH ×3 (09:27→20:55)
[2021-12-03 09:31] LABS: African American GFR (CKD) 67.2 (60.0-200.0); Albumin 3.4 g/dL (3.8-4.9); Albumin/Globulin Ratio 1.79 (1.60-3.17); Anion Gap 10.6 mmol/L (10.00-18.00); Blood Urea Nitrogen 13.2 mg/dL (9.0-27.0); Calcium 8.5 mg/dL (8.7-10.3); Carbon Dioxide 22.4 mmol/L (20.0-27.5); Globulin 1.9 g/dL (1.6-3.3); Potassium 4.1 mmol/L (3.5-5.5); Total Bilirubin 0.9 mg/dL (0.30-1.20); Total Protein 5.3 g/dL (6.2-8.2)
[2021-12-03] MEDS: CENEGERMIN BKBJ BOTH EYES SCH ×5 (10:12→17:48)
--- NOTE | 2021-12-03 11:05 | P.PN ---
Subjective Progress Note Date: 12/03/21 Principal diagnosis: Left hip IT fracture Patient seen at bedside this morning resting comfortably with nasal cannula on, sitting up in chair eating breakfast. Patient says he is having some pain in left hip however it is under control while he is resting. Patient says when he does get up with therapy and bear weight on hip, the pain does increase. Patient says she is willing to go to rehab upon discharge. Patient denies chest pain, fever, shortness breath, nausea, vomiting, change in vision, loss of bladder control. Objective - Vital Signs Vital signs: Vital Signs Temp 100.1 F H 12/03/21 07:15 Pulse 88 12/03/21 07:15 Resp 16 12/03/21 07:15 BP 148/81 12/03/21 07:15 Pulse Ox 94 L 12/03/21 07:15 FiO2 Intake & Output 12/02/21 12/03/21 12/03/21 18:59 06:59 18:59 Intake Total 950 Output Total 720 1400 Balance 230 -1400 Intake: IV 950 Output: Urine 700 1400 Estimated Blood Loss 20 Other: Voiding Method Indwelling Catheter Indwelling Catheter # Bowel Movements 0 - Exam Left hip: Incision is clean, dry, and intact. The silver foam dressing in the proximal left lower extremity is in good condition. The dressing that is more distal located closer to the left knee appears to be somewhat saturated with serosanguineous drainage. There is minimal soft tissue swelling and ecchymosis surrounding the medial and lateral aspects of the incision. Calf is soft, no tenderness with palpation. Plantar flexion, dorsiflexion, EHL, FHL are intact. Sensory exam to light touch throughout the extremity is intact, dorsal pedis pulses 2+. - Labs CBC & Chem 7: 12/03/21 04:15 12/03/21 04:12 Labs: Abnormal Lab Results - Last 24 Hours (Table) 12/02/21 12/03/21 12/03/21 Range/Units 15:25 04:12 04:15 WBC 14.36 H (4.50-10.00) X 10*3/uL RBC 4.00 L (4.40-5.60) X 10*6/uL Hgb 12.4 L (13.0-17.0) g/dL Hct 37.3 L (39.6-50.0) % Immature Gran # 0.06 H (0.00-0.04) X 10*3/uL Neutrophils # 12.19 H (1.80-7.70) X 10*3/uL Lymphocytes # 0.80 L (0.90-5.00) X 10*3/uL Monocytes # 1.27 H (0.20-1.00) X 10*3/uL Eosinophils # 0.01 L (0.04-0.35) X 10*3/uL Est GFR (CKD-EPI)NonAf 58.0 L (60.0-200.0) BUN/Creatinine Ratio 11.00 L (12.00-20.00) Ratio Glucose 122 H (70-110) mg/dL Calcium 8.5 L (8.7-10.3) mg/dL AST 40 H (14-35) U/L Total Protein 5.3 L (6.2-8.2) g/dL Albumin 3.4 L (3.8-4.9) g/dL Urine Blood Large H (Negative) Ur Leukocyte Esterase Large H (Negative) Urine RBC 59 H (0-5) /hpf Urine WBC 17 H (0-5) /hpf Urine Mucus Few H (None) /hpf Microbiology - Last 24 Hours (Table) 12/02/21 15:25 Urine Culture - Preliminary Urine,Voided Assessment and Plan Assessment: 1. Left hip IT fracture - Postoperative day #1 status post left hip IM nail Plan: 1. Left hip IT fracture - left hip IM nail performed yesterday, , 12/02/2021. Patient stable at bedside this morning. Plan for discharge to subacute rehab. Discharge likely within the next few days 2. Appreciate medical management 3. Pain management - [place] 5/325 mg; tramadol; Dilaudid only if necessary 4. DVT prophylaxis - Lovenox 5. GI prophylaxis - senna 6. PT/OT - weightbearing as tolerated with walker 7. Encourage incentive spirometer use 8. Discharge planning - plan for discharge to rehab with the next few days Time with Patient: Less than 30
[2021-12-03] MEDS: LACTATED RINGERS 1,000 ML IV SCH (15:27)
--- NOTE | 2021-12-03 17:07 | P.PN ---
Progress Note - Text Progress Note Date: 12/03/21 - Chief Complaint Fall This is a pleasant 76-year-old patient follows Dr. Winters. Chronic stable medical conditions include Parkinson's, atrial fibrillation, hypertension, hyperlipidemia, hypothyroid, hard of hearing. History is obtained by the at the bedside. Some furniture was moved to return patient's room. Patient normally able to get from the house. Does use a cane and a walker when he is outside. Does use a walker to going to get the patient which is quite a distance from the main house. Gait dysfunction because of Parkinson's. Memory has been slowly declining. Normally appetite is good. Has a bowel movement every 2 or 3 days. Patient lost balance and fell. Subsequent fracture of the femur. No history of CAD. No chest pain or shortness of breath. December 02: Patient was seen this morning before surgery. Comfortable. at the bedside. Nothing by mouth. Late in the day underwent trochanteric nailing. December 03: Up in a chair.. Pain control. Oral intake fair. Breathing stable. Active Medications Acetaminophen (Acetaminophen Tab 325 Mg Tab) 650 mg PO Q6HR PRN PRN Reason: Mild Pain or Fever > 100.5 Hydrocodone Bitart/Acetaminophen (Hydrocodone/Apap 5-325mg 1 Each Tab) 1 each PO Q6HR PRN PRN Reason: Pain Amiodarone HCl (Amiodarone 100 Mg Tab) 100 mg PO SuWeSa@0900 [facility] Last Admin: 12/01/21 09:47 Dose: 100 mg Atorvastatin Calcium (Atorvastatin 40 Mg Tab) 40 mg PO HS [facility] Last Admin: 12/02/21 22:00 Dose: 40 mg Carbidopa/Levodopa (Carbidopa-Levodopa 25-100 Mg 1 Each Tab) 2 each PO TID [facility] Last Admin: 12/03/21 16:01 Dose: 2 each Donepezil HCl (Donepezil 10 Mg Tab) 20 mg PO [facility] Last Admin: 12/02/21 21:59 Dose: 20 mg Enoxaparin Sodium (Enoxaparin 40 Mg/0.4 Ml Syringe) 40 mg SQ HS [facility] Last Admin: 12/02/21 21:59 Dose: 40 mg Finasteride (Finasteride 5 Mg Tab) 5 mg PO DAILY [facility] Last Admin: 12/03/21 09:27 Dose: 5 mg Hydromorphone HCl (Hydromorphone 0.5 Mg/0.5 Ml Syringe) 0.5 mg IVP Q3HR PRN PRN Reason: Moderate Pain Last Admin: 12/02/21 12:08 Dose: 0.5 mg Sodium Chloride (Saline 0.9%) 1,000 mls @ 75 mls/hr IV .[id number] [facility] Last Admin: 12/03/21 15:27 Dose: Not Given Lactated Ringer's (Lactated Ringers) 1,000 mls @ 20 mls/hr IV .Q24H [facility] Last Admin: 12/03/21 15:27 Dose: Not Given Naloxone HCl (Naloxone 0.4 Mg/Ml 1 Ml Vial) 0.2 mg IV Q2M PRN PRN Reason: Opioid Reversal Non-Formulary Medication (Cenegermin-Bkbj [Oxervate]) 1 drop BOTH EYES 0 800,1000,1200,1400,1600,1800 [facility] Last Admin: 12/03/21 15:30 Dose: Not Given Primidone (Primidone 25 Mg Tab) 75 mg PO DAILY [facility] Last Admin: 12/03/21 09:27 Dose: 75 mg Senna (Sennosides 8.6 Mg Tab) 8.6 mg PO DAILY [facility] Tramadol HCl (Tramadol 50 Mg Tab) 50 mg PO QID [facility] Last Admin: 12/03/21 12:44 Dose: 50 mg Past medical history to include: Atrial fibrillation, stroke, hard of hearing, hypertension, hyperlipidemia, hypothyroid, Parkinson's, gait dysfunction Social history: History of smoking or alcohol. . Daughter Rosina is a POA Family history: Cancer Physical examination: VITAL SIGNS: 98, 84, 15, 100/64, 94% on 3 L GENERAL: Reclining, comfortable. EYES: Pupils equal. Conjunctiva normal. HEENT: External appearance of nose and ears normal, oral cavity grossly normal. Hard of hearing NECK: JVD not raised; masses not palpable. HEART: First and second heart sounds are normal; no edema. LUNGS: Respiratory rate normal; clear to auscultation. ABDOMEN: Soft, nontender, liver spleen not palpable, no masses palpable. PSYCH: Able tonsil simple questions.l. MUSCULOSKELETAL:No Clubbing/cyanosis;muscles-grossly intact. Evidence of OA. Dressing over incision site NEUROLOGICAL: Cranial nerves grossly intact; no facial asymmetry, power and sensation grossly intact. Some bradykinesia. INVESTIGATIONS, reviewed in the clinical context: December 03: White count 14.3 hemoglobin 12.4 potassium 4.1 creatinine 1.2 White count 15.6 hemoglobin 14.3 platelets 210 potassium 4.3 creatinine 0.89 Femur x-ray: Nondisplaced ID fractured left femur. Assessment and plan: -Left femur IT fracture or displacement secondary to mechanical fall/poor balance Trochanteric nailing done on December 02. By Dr. Murphy. 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 Because of risk of fall patient not on anticoagulation -Acute UTI with cystitis IV ceftriaxone. IV ceftriaxone. Other medications to continue. oxervate, will not be covered at the [facility]. Therefore can be held when patient goes to rehab Thank you Dr. Patterson
[2021-12-03] MEDS: ATORVASTATIN 40 MG TAB PO SCH (20:54)
[2021-12-03] MEDS: DONEPEZIL 10 MG TAB PO SCH (20:55)
[2021-12-03] MEDS: ENOXAPARIN 40 MG/0.4 ML SYRINGE SQ SCH (20:55)
[2021-12-04] MEDS: SODIUM CHLORIDE 0.9% 1,000 ML IV SCH ×2 (05:04→17:09)
[2021-12-04] MEDS: traMADol 50 MG TAB PO SCH ×4 (08:41→20:52)
[2021-12-04] MEDS: CARBIDOPA-LEVODOPA 25-100 MG 1 EACH TAB PO SCH ×3 (08:44→20:52)
[2021-12-04] MEDS: AMIODARONE 100 MG TAB PO SCH (08:44)
[2021-12-04] MEDS: SENNOSIDES 8.6 MG TAB PO SCH (08:44)
[2021-12-04] MEDS: FINASTERIDE 5 MG TAB PO SCH (08:44)
[2021-12-04] MEDS: PRIMIDONE 25 MG TAB PO SCH (08:44)
--- NOTE | 2021-12-04 08:44 | P.PN ---
Subjective Progress Note Date: 12/04/21 Principal diagnosis: Left hip IT fracture Patient seen at bedside this morning resting comfortably sitting up in chair eating breakfast. Patient says he is having some pain in left hip however it is under control while he is resting. Patient says when he does get up with therap y and bear weight on hip, the pain does increase. Patient says she is willing to go to rehab upon discharge. Patient denies chest pain, fever, shortness breath, nausea, vomiting, change in vision, loss of bladder control. Objective - Vital Signs Vital signs: Vital Signs Temp 99.3 F 12/04/21 07:48 Pulse 73 12/04/21 07:48 Resp 14 12/04/21 07:48 BP 160/71 12/04/21 07:48 Pulse Ox 95 12/04/21 07:48 FiO2 Intake & Output 12/03/21 12/04/21 12/04/21 18:59 06:59 18:59 Intake Total 240 900 Output Total 100 800 Balance 140 100 Intake: IV 900 Sodium Chloride 0.9% 1, 900 000 ml @ 75 mls/hr IV . [id number] [facility] Rx#:[id number] Oral 240 Output: Urine 100 800 Other: Voiding Method Indwelling Catheter Indwelling Catheter - Exam Left hip: Incision is clean, dry, and intact. The silver foam dressing in the proximal left lower extremity is in good condition. The dressing that is more distal located closer to the left knee appears to be somewhat saturated with serosanguineous drainage. distal dressings were changed. There is minimal soft tissue swelling and ecchymosis surrounding the medial and lateral aspects of the incision. Calf is soft, no tenderness with palpation. Plantar flexion, dorsiflexion, EHL, FHL are intact. Sensory exam to light touch throughout the extremity is intact, dorsal pedis pulses 2+. - Labs CBC & Chem 7: 12/03/21 04:15 12/03/21 04:12 Labs: Abnormal Lab Results - Last 24 Hours (Table) 12/03/21 12/03/21 Range/Units 04:12 04:15 WBC 14.36 H (4.50-10.00) X 10*3/uL RBC 4.00 L (4.40-5.60) X 10*6/uL Hgb 12.4 L (13.0-17.0) g/dL Hct 37.3 L (39.6-50.0) % Immature Gran # 0.06 H (0.00-0.04) X 10*3/uL Neutrophils # 12.19 H (1.80-7.70) X 10*3/uL Lymphocytes # 0.80 L (0.90-5.00) X 10*3/uL Monocytes # 1.27 H (0.20-1.00) X 10*3/uL Eosinophils # 0.01 L (0.04-0.35) X 10*3/uL Est GFR (CKD-EPI)NonAf 58.0 L (60.0-200.0) BUN/Creatinine Ratio 11.00 L (12.00-20.00) Ratio Glucose 122 H (70-110) mg/dL Calcium 8.5 L (8.7-10.3) mg/dL AST 40 H (14-35) U/L Total Protein 5.3 L (6.2-8.2) g/dL Albumin 3.4 L (3.8-4.9) g/dL Microbiology - Last 24 Hours (Table) 12/02/21 15:25 Urine Culture - Final Urine,Voided Assessment and Plan Assessment: 1. Left hip IT fracture - Postoperative day #2 status post left hip IM nail Plan: 1. Left hip IT fracture - left hip IM nail performed , 12/02/2021. Patient stable at bedside this morning. Plan for discharge [facility]. 2. Appreciate medical management 3. Pain management - [place] 5/325 mg; tramadol; Dilaudid only if necessary 4. DVT prophylaxis - Lovenox 5. GI prophylaxis - senna 6. PT/OT - weightbearing as tolerated with walker 7. Encourage incentive spirometer use 8. Discharge planning - plan for discharge to [facility] today Time with Patient: Less than 30
[2021-12-04] MEDS: CENEGERMIN BKBJ BOTH EYES SCH ×3 (08:45→12:35)
--- NOTE | 2021-12-04 08:48 | P.DS ---
Providers Date of admission: 12/01/21 08:33 Expected date of discharge: 12/04/21 Attending physician: Mario Murphy Consults: 12/01/21 08:40 Consult Physician Routine Consulting Provider: Hugh Winters Consult Reason/Comments: Medical Management Do you want consulting provider notified?: Yes 12/01/21 10:49 Consult Physician Routine Consulting Provider: Morgan Dang Consult Reason/Comments: Medical Management Do you want consulting provider notified?: Yes Primary care physician: Hugh Winters Hospital Course: Date of admission: 12/02/2021 Date of discharge: 12/04/2021 Admission diagnosis: Left hip IT fracture Discharge diagnosis: Same Attending physician: Dr. Murphy Surgical procedures: Left hip IM nail Brief history: Patient is a 76-year-old male with a history of left hip IT fracture status post fall. At this point patient has failed conservative treatment measures and has opted to proceed with a elective left hip IM nail. Hospital course: Details of patient's surgery can be found in operative report. Patient tolerated the procedure well and was subsequently transported to orthopedic floor. Patient's orthopeidc and medical care was provided daily. Patient had daily laboratory tests performed for evaluation of overall blood counts. Patient had daily physical therapy to include strengthening range of motion as well as education with walker ambulation. Patient was treated with Lovenox for their postoperative DVT prophylaxis during their inpatient stay. Patient was noted to have a relatively uneventful postoperative course. Patient reported satisfactory pain control with oral pain medications by postoperative day 2. Patient showed satisfactory progress with physical therapy. Patient m caitlin steadily through the program and had no difficulty meeting the goals by postoperative day 2. Given patient's otherwise satisfactory course and having met physical therapy goals, plan is to discharge patient to subacute rehab on postoperative day 2. Discharge condition/disposition: Patient will be discharged to subacute rehab in stable condition. Discharge medications: Instructions are given on resumption of patient's normal daily medications per primary care recommendation, in addition patient will be prescribed tramadol 50 mg; Lovenox; Colace. Discharge instructions: 1. Wound care and infection precautions, keep incision dry and covered while showering, no lotions, creams, moisturizers. No soaking, tubs, pools, hottubs. Do not scrub over the incision. 2. Weight-bear as tolerated with walker / cane until follow-up. 3. Ice and elevate when necessary. Do not exceed 20 minutes per hour with ice pack. 4. Anticoagulants per prescription. 5. Nursing care. 6. Physical therapy. 7. Pain meds per prescription. 8. Pain medication has potential to cause constipation. Increase oral fluid and fiber intake. Contact primary care provider if you have not had a bowel movement within 48 hours after discharge 9. No anti-inflammatory medication until discussed at first post operative visit, this including Motrin, Aleve, Mobic, Diclofenac 10. Follow up in office at 2 weeks postop with Yaniv Velasquez PA-C / Cong Toscano PA-C 11. Follow up with your primary care doctor 7-10 days after discharge. 12. Contact [facility] with any questions, . Keep incision clean, dry, intact. Dressings may be removed on , 12/09/2021. While showering, cover incisions with Saran wrap Medications: Tramadol 50 mg; Lovenox; Colace Assessment: Left hip IT fracture Procedures: Left hip IM nail Patient Condition at Discharge: Good Plan - Discharge Summary Discharge Rx Participant: Yes New Discharge Prescriptions: New Enoxaparin [Lovenox] 40 mg SQ DAILY #27 each Docusate [Colace] 100 mg PO DAILY #30 capsule No Action Finasteride [Proscar] 5 mg PO DAILY Amiodarone [Cordarone] 100 mg PO SUWE Carbidopa-Levodopa 25-100 mg [Sinemet 25-100] 2 tab PO TID Donepezil HCl [Aricept] 20 mg PO HS Cenegermin-Bkbj [Oxervate] 1 drop BOTH EYES DIRECTED Primidone [Mysoline] 75 mg PO DAILY Rosuvastatin [Crestor] 20 mg PO HS Discharge Medication List Finasteride [Proscar] 5 mg PO DAILY 11/25/14 [History] Amiodarone [Cordarone] 100 mg PO SUWESA 12/21/17 [History] Carbidopa-Levodopa 25-100 mg [Sinemet 25-100] 2 tab PO TID 08/28/18 [History] Donepezil HCl [Aricept] 20 mg PO HS 08/28/18 [History] Primidone [Mysoline] 75 mg PO DAILY 06/17/21 [History] Rosuvastatin [Crestor] 20 mg PO HS 06/17/21 [History] Cenegermin-Bkbj [Oxervate] 1 drop BOTH EYES DIRECTED 12/01/21 [History] Docusate [Colace] 100 mg PO DAILY #30 capsule 12/03/21 [Rx] Enoxaparin [Lovenox] 40 mg SQ DAILY #27 each 12/03/21 [Rx] Follow up Appointment(s)/Referral(s): Hugh Winters DO [Primary Care Provider] - 1-2 days Urban Velasquez PAC [PHYSICIAN DIRECTOR OF OUTPATIENT SERVICES] - 2 Weeks Patient Instructions/Handouts: ORIF of Hip Fracture (DC) Activity/Diet/Wound Care/Special Instructions: Per Dr. Dang - it is ok to hold patient's Oxervate while at rehab. Orthopedic Discharge Instructions: 1. Wound care and infection precautions, keep incision dry and covered while showering, no lotions, creams, moisturizers. No soaking, pools, hot tubs. Do not scrub over incision. 2. Weight-bear as tolerated with walker / cane until follow-up. 3. Ice and elevate when necessary. Do not exceed 20 minutes per hour with ice pack. 4. Physical therapy at rehab 5. Pain meds and anticoagulants per prescription. 6. Pain medication has potential to cause constipation. Increase oral fluid and fiber intake. Contact primary care provider if you have not had a bowel movement within 48 hours after discharge. 7. No anti-inflammatory medication until discussed at first post operative visit, this including Motrin, Aleve, Mobic, Diclofenac. 8. Follow up in office at 2 weeks postop with Yaniv Velasquez PA-C / Cong Toscano PA-C 9. Follow up with your primary care doctor 7-10 days after discharge. 10. Contact [facility] with any questions, . Keep incision clean, dry, intact. While showering, cover incision with Saran wrap. Silver foam dressing may be removed in 7 days, , 12/09/2021 Medications: Tramadol; Lovenox; Colace Discharge Disposition: TRANSFER TO SNF/ECF
--- NOTE | 2021-12-04 13:13 | P.PN ---
Progress Note - Text Progress Note Date: 12/04/21 - Chief Complaint Fall This is a pleasant 76-year-old patient follows Dr. Winters. Chronic stable medical conditions include Parkinson's, atrial fibrillation, hypertension, hyperlipidemia, hypothyroid, hard of hearing. History is obtained by the at the bedside. Some furniture was moved to return patient's room. Patient normally able to get from the house. Does use a cane and a walker when he is outside. Does use a walker to going to get the patient which is quite a distance from the main house. Gait dysfunction because of Parkinson's. Memory has been slowly declining. Normally appetite is good. Has a bowel movement every 2 or 3 days. Patient lost balance and fell. Subsequent fracture of the femur. No history of CAD. No chest pain or shortness of breath. December 02: Patient was seen this morning before surgery. Comfortable. at the bedside. Nothing by mouth. Late in the day underwent trochanteric nailing. December 03: Up in a chair.. Pain control. Oral intake fair. Breathing stable. December 04: Up in bed. Some pain at the surgical site. Eating okay. He'll be going to rehab today. Active Medications Acetaminophen (Acetaminophen Tab 325 Mg Tab) 650 mg PO Q6HR PRN PRN Reason: Mild Pain or Fever > 100.5 Hydrocodone Bitart/Acetaminophen (Hydrocodone/Apap 5-325mg 1 Each Tab) 1 each PO Q6HR PRN PRN Reason: Pain Amiodarone HCl (Amiodarone 100 Mg Tab) 100 mg PO SuWeSa@0900 [facility] Last Admin: 12/04/21 08:44 Dose: 100 mg Atorvastatin Calcium (Atorvastatin 40 Mg Tab) 40 mg PO [facility] Last Admin: 12/03/21 20:54 Dose: 40 mg Carbidopa/Levodopa (Carbidopa-Levodopa 25-100 Mg 1 Each Tab) 2 each PO TID [facility] Last Admin: 12/04/21 08:44 Dose: 2 each Donepezil HCl (Donepezil 10 Mg Tab) 20 mg PO [facility] Last Admin: 12/03/21 20:55 Dose: 20 mg Enoxaparin Sodium (Enoxaparin 40 Mg/0.4 Ml Syringe) 40 mg SQ [facility] Last Admin: 12/03/21 20:55 Dose: 40 mg Finasteride (Finasteride 5 Mg Tab) 5 mg PO DAILY [facility] Last Admin: 12/04/21 08:44 Dose: 5 mg Hydromorphone HCl (Hydromorphone 0.5 Mg/0.5 Ml Syringe) 0.5 mg IVP Q3HR PRN PRN Reason: Moderate Pain Last Admin: 12/02/21 12:08 Dose: 0.5 mg Sodium Chloride (Saline 0.9%) 1,000 mls @ 75 mls/hr IV .[id number] [facility] Last Admin: 12/04/21 05:04 Dose: 75 mls/hr Ceftriaxone Sodium 1 gm/ (Sodium Chloride) 50 mls @ 100 mls/hr IVPB Q12HR [facility]; Protocol Last Admin: 12/04/21 08:41 Dose: 100 mls/hr Naloxone HCl (Naloxone 0.4 Mg/Ml 1 Ml Vial) 0.2 mg IV Q2M PRN PRN Reason: Opioid Reversal Oxervate (Cenegermin -Bkb) 0.002 % Ophthalmic Solution 1 drop BOTH EYES 1230,1430,1630,1830,2030,2230 [facility] Primidone (Primidone 25 Mg Tab) 75 mg PO DAILY [facility] Last Admin: 12/04/21 08:44 Dose: 75 mg Senna (Sennosides 8.6 Mg Tab) 8.6 mg PO DAILY [facility] Last Admin: 12/04/21 08:44 Dose: 8.6 mg Tramadol HCl (Tramadol 50 Mg Tab) 50 mg PO QID [facility] Last Admin: 12/04/21 12:48 Dose: Not Given Past medical history to include: Atrial fibrillation, stroke, hard of hearing, hypertension, hyperlipidemia, hypothyroid, Parkinson's, gait dysfunction Social history: History of smoking or alcohol. . Daughter Rosina is a POA Family history: Cancer Physical examination: VITAL SIGNS: 99.3, 73, 14, 160/71, 95% on 3 L GENERAL: Reclining, comfortable. EYES: Pupils equal. Conjunctiva normal. HEENT: External appearance of nose and ears normal, oral cavity grossly normal. Hard of hearing NECK: JVD not raised; masses not palpable. HEART: First and second heart sounds are normal; no edema. LUNGS: Respiratory rate normal; clear to auscultation. ABDOMEN: Soft, nontender, liver spleen not palpable, no masses palpable. PSYCH: Able tonsil simple questions.l. MUSCULOSKELETAL:No Clubbing/cyanosis;muscles-grossly intact. Evidence of OA. Dressing over incision site NEUROLOGICAL: Cranial nerves grossly intact; no facial asymmetry, power and sensation grossly intact. Some bradykinesia. INVESTIGATIONS, reviewed in the clinical context: December 03: White count 14.3 hemoglobin 12.4 potassium 4.1 creatinine 1.2 White count 15.6 hemoglobin 14.3 platelets 210 potassium 4.3 creatinine 0.89 Femur x-ray: Nondisplaced ID fractured left femur. Assessment and plan: -Left femur IT fracture or displacement secondary to mechanical fall/poor bal ance Trochanteric nailing done on December 02. By Dr. Murphy. 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 Because of risk of fall patient not on anticoagulation -Acute UTI with cystitis IV ceftriaxone. Complete 7 days of Ceftin 5 mg twice a day oxervate, will not be covered at the F. Therefore can be held when patient goes to rehab. Complete 7 days of Ceftin. Thank you Dr. Patterson
[2021-12-04] MEDS: [UNRECOGNIZED DRUG - OTHER] BOTH EYES SCH ×5 (14:28→22:43)
--- NOTE | 2021-12-04 16:59 | CT ---
EXAMINATION TYPE: CT brain wo con DATE OF EXAM: 12/04/2021 COMPARISON: 08/28/2018 HISTORY: leaning to right side since admission CT DLP: 1173.4 mGycm Automated exposure control for dose reduction was used. CT brain with no contrast. There is moderate enlargement of the ventricles. There is significant enlargement of the frontal horn left lateral ventricle which extends to the frontal bone. There is apparent old encephalomalacia lef t frontal lobe. No mass effect or midline shift. No sign of intracranial hemorrhage. There is mild ce rebral atrophy. The calvarium is intact. There is some mucosal thickening left maxillary sinus. IMPRESSION: Mild atrophy. Hydrocephalus without change compared to old exam. No acute intracranial abnormality. O ld left frontal lobe encephalomalacia.
[2021-12-04] MEDS ORDERED: ASPIRIN 325 MG TAB PO STA (20:17)
[2021-12-04] MEDS: DONEPEZIL 10 MG TAB PO SCH (20:52)
[2021-12-04] MEDS: amLODIPine 2.5 MG TAB PO SCH (20:52)
[2021-12-04] MEDS: ATORVASTATIN 40 MG TAB PO SCH (20:52)
[2021-12-04] MEDS: ENOXAPARIN 40 MG/0.4 ML SYRINGE SQ SCH (20:53)
[2021-12-05] MEDS: SODIUM CHLORIDE 0.9% 1,000 ML IV SCH ×2 (06:17→20:15)
--- NOTE | 2021-12-05 08:19 | US ---
EXAMINATION TYPE: US carotid duplex BILAT DATE OF EXAM: 12/05/2021 COMPARISON: 12/21/2017 CLINICAL HISTORY: Right arm weakness ?CVA. ? CVA EXAM MEASUREMENTS: RIGHT: Peak Systolic Velocity (PSV) cm/sec ----- Right CCA: 92.5 ----- Right ICA: 96.4 ----- Right ECA: 105.5 ICA/CCA ratio: 1.0 RIGHT: End Diastole cm/sec ----- Right CCA: 16.8 ----- Right ICA: 16.8 ----- Right ECA: 10.3 LEFT: Peak Systolic Velocity (PSV) cm/sec ----- Left CCA: 90.0 ----- Left ICA: 92.9 ----- Left ECA: 107.5 ICA/CCA ratio: 1.0 LEFT: End Diastole cm/sec ----- Left CCA: 23.1 ----- Left ICA: 18.8 ----- Left ECA: 11.5 VERTEBRALS (direction of flow): Right Vertebral: Antegrade Left Vertebral: Antegrade Rhythm: Normal There is persistent calcified plaque in the right carotid bifurcation which is essentially unchanged and consistent with a less than 50% stenosis based on peak systolic velocities. There is minimal plaq ue in the left carotid bifurcation and no significant stenosis. IMPRESSION: 1. No significant interval change compared to the prior study. 2. Mild calcified plaque in the right carotid bifurcation with a less than 50% stenosis 3. Minimal plaque and no significant stenosis of the left carotid bifurcation. Criteria for Assigning % of Stenosis / Diameter reduction (Estimation based on the indirect measurements of the internal carotid artery velocities (ICA PSV). 1. Normal (no stenosis)=ICA PSV < 125 cm/s: ratio < 2.0: ICA EDV<40 cm/s. 2. Less than 50% stenosis=ICA PSV < 125 cm/s: ratio < 2.0: ICA EDV<40 cm/s. 3. 50 to 69% stenosis=ICA PSV of 125 to 230 cm/s: ration 2.0 ? 4.0: ICA EDV 40-100 cm/s. 4. Greater than 70% stenosis to near occlusion= ICA PSV > 230 cm/s: ratio > 4.0: ICA EDV > 100 cm/s. 5. Near occlusion= ICA PSV velocities may be low or undetectable: variable ratio and ICA EDV. 6. Total occlusion=unable to detect flow.
[2021-12-05] MEDS: CARBIDOPA-LEVODOPA 25-100 MG 1 EACH TAB PO SCH ×3 (08:43→21:41)
[2021-12-05] MEDS: SENNOSIDES 8.6 MG TAB PO SCH (08:43)
[2021-12-05] MEDS: traMADol 50 MG TAB PO SCH ×4 (08:43→21:41)
[2021-12-05] MEDS: amLODIPine 2.5 MG TAB PO SCH (08:45)
[2021-12-05] MEDS: ASPIRIN 81 MG PO SCH (08:45)
[2021-12-05] MEDS: FINASTERIDE 5 MG TAB PO SCH (08:45)
[2021-12-05] MEDS: PRIMIDONE 25 MG TAB PO SCH (08:46)
[2021-12-05] MEDS: AMIODARONE 100 MG TAB PO SCH (08:46)
--- NOTE | 2021-12-05 10:32 | P.CNNES ---
History of Present Illness Consult date: 12/04/21 Requesting physician: Morgan Dang Reason for Consult: leaning to right side; hx of cva/tia History of Present Illness: Patient is a 76-year-old right-handed male came to the hospital by ambulance on 12/01/2021 Per EMS flow sheet, when they arrived, patient was in a seated position on the floor of his home, accompanied by family, in obvious distress and he makes eye contact upon greeting. He was complaining of hip pain 02/09. Patient was ambulating in his home when he fell to the floor in his home resulting in pain to the left hip region. No obvious deformities noted, no elevation of pain upon palpation, noted possible shortening and rotation. Patient's blood pressure was 199/104, pulse rate 68, respiration 18 and saturation 95%. Patient's x-ray revealed possible intertrochanteric nondisplaced fracture of the left femur. Patient underwent trochanteric nailing of the left hip on 12/02/2021. Patient was getting ready for discharge to the rehab center, but was noted to be constantly leaning to the right side. This prompted neurologic consultation to rule out stroke. Patient's was present today, who provided with additional history. Patient has been diagnosed with Parkinson's disease for last 7-10 years. He also has some degree of dementia. He follows up with Mr. Saeid Wayne. Patient's states that he has had several TIAs in the past, in which he would get limp on one side. He had 3-4 such TIAs, and the last one was about over 2 years ago. She states she was told that his CAT scan did show evidence of one stroke in the past. Patient otherwise is ambulatory, as he walks to the bathroom, walks to the kitchen and goes outside to get mail. When he goes outside uses walker or cane. Patient's states that he sometimes gets paranoid for which she used to be on some psych medications but they have been discontinued, as it was concerned if the Parkinson's was related to the psych medication. Patient suffered from multiple falls in the last few days, resulting in left hip fracture. The first one occurred, when he was answering to the doorbell, and the door was open, he lost balance and fell onto patient's friend, who was coming in. He did not get hurt. The next day he was sleeping, fell out of bed, which she attributes to being "too close to the edge of the bed". The third fall is the one mentioned above. Apparently patient's has moved his bed to another location. He states that he became disoriented because of moving of the furniture resulting in the fall. No history of tobacco alcohol. He does have hypertension, but no diabetes. He has keratosis. No history of seizures. Patient's believes that he has suffered from multiple falls when he was younger. One time he fell off the roof when he was very young, in which he smashed his right hip requiring surgery. Another time he fell off the back of the truck, when he was in his 60s. 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 Patient's blood test shows WBC 15.6 hemoglobin 14.3 platelets are normal. Electrolytes, renal functions are normal. Hepatic panel normal. UA shows large amount of leukocyte Estrace and 17 wbc's. Urine culture so far are negative. Patient's last hemoglobin A1c 6.1 on 11/26/2014. Patient had a computed tomography scan of head, which revealed mild atrophy. Hydrocephalus without change compared to the old exam from 08/28/2018. Old left frontal lobe encephalomalacia. I also reviewed CT head, and agreed with the findings, no changes compared to the previous exam. Patient does have possible some degree of hydrocephalus, but more so involvement of the third and lateral ventricles as compared to the fourth ventricle. 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 Patient had a BRANDON scan on 02/19/2019, which revealed abnormal appearance suppor tive of a clinical diagnosis of DLB, idiopathic Parkinson's disease, Parkinson's dementia complex or PS. Patient at home was taking aspirin 81 mg daily. Apparently these been on hold since surgery. Patient's did not mention aspirin in the home medication list. Review of Systems Patient denies headache. Denies any numbness or tingling. Denies any fever or chills. No abdominal pain nausea vomiting diarrhea. Patient is hard of hearing. Complains of leg pain postoperative status. All other 14 points of review of systems are reviewed, unremarkable. Patient does have memory disturbance. No anxiety or panic attacks. Patient could not tell if he has any problems with controlling urine or incontinence. States "I don't know". Past Medical History Past Medical History: Atrial Fibrillation, CVA/TIA, Hearing Disorder / Deafness, Hyperlipidemia, Hypertension, Thyroid Disorder Additional Past Medical History / Comment(s): very [place], unsteady on feet, Parkinson's History of Any Multi-Drug Resistant Organisms: None Reported Past Surgical History: Hernia Repair, Orthopedic Surgery Additional Past Surgical History / Comment(s): Right femur surgery, thyroid biopsy, left cataract Past Anesthesia/Blood Transfusion Reactions: No Reported Reaction Past Psychological History: No Psychological Hx Reported Smoking Status: Never smoker Past Alcohol Use History: None Reported Past Drug Use History: None Reported - Past Family History Mother Family Medical History: Cancer Medications and Allergies Home Medications Medication Instructions Recorded Confirmed Type Finasteride [Proscar] 5 mg PO DAILY 11/25/14 12/01/21 History Amiodarone [Cordarone] 100 mg PO SUWESA 12/21/17 12/01/21 History Carbidopa-Levodopa 25-100 mg 2 tab PO TID 08/28/18 12/01/21 History [Sinemet 25-100 mg] Donepezil HCl [Aricept] 20 mg PO HS 08/28/18 12/01/21 History Primidone [Mysoline] 75 mg PO DAILY 06/17/21 12/01/21 History Rosuvastatin [Crestor] 20 mg PO HS 06/17/21 12/01/21 History Docusate [Colace] 100 mg PO DAILY #30 capsule 12/03/21 Rx Enoxaparin [Lovenox] 40 mg SQ DAILY #27 each 12/03/21 Rx Acetaminophen Tab [Tylenol] 650 mg PO Q6HR PRN tab 12/04/21 Rx Cefuroxime Axetil [Ceftin] 500 mg PO BID 1 Days #10 tab 12/04/21 Rx Sennosides [Senokot] 8.6 mg PO DAILY tab 12/04/21 Rx Allergies Allergy/AdvReac Type Severity Reaction Status Date / Time No Known Allergies Allergy Verified 12/01/21 07:43 Physical Examination - Vital Signs Vital Signs: Vital Signs Temp Pulse Resp BP Pulse Ox 12/04/21 19:05 99.6 F 72 15 168/78 93 L 12/04/21 14:00 99.5 F 84 16 125/67 92 L 12/04/21 07:48 99.3 F 73 14 160/71 95 12/04/21 02:17 99.0 F 80 132/75 95 Intake and Output 12/04/21 12/04/21 12/04/21 06:59 14:59 22:59 Intake Total 900 Output Total 800 420 Balance 100 -420 Intake: IV 900 Sodium Chloride 0.9% 1, 900 000 ml @ 75 mls/hr IV . [id number] [facility] Rx#:[id number] Output: Urine 800 420 Other: Voiding Method Indwelling Catheter Indwelling Catheter Patient is an elderly male, in no acute distress. He is quiet, does not speak much unless spoken to. Patient is keeping his eyes close, but did open his eyes during the examination. Patient states it's the month of December, and 2019. He knows he is in [facility] and knows name of the current president. Speech and language functions are normal. Attention, concentration is slightly decreased and fund of knowledge is adequate. Detail cognitive function testing deferred. On cranial examination, pupils are round and reacting to light, visual camilo are full on confrontation, extraocular muscles are intact with no nystagmus. Face is symmetric, tongue protrudes to the midline. Palatal elevation and sensation normal, hearing is moderately decreased and shoulder shrug normal, facial sensation normal. Shoulder shrug normal. On muscle strength testing, there is right pronator drift, and arm hits the bed. The strength is (right/left) deltoid 4/5, biceps 4+/5, medical office representative 5-/5, hip flexion 4+/--, ankle dorsiflexion 5-/5. Deep tendon reflexsymmetric 1 at the biceps and brachioradialis, 2 at the knees, absent ankles and plantars are flat bilaterally. Sensory to touch is equal with no neglect. Cerebellar function showed mild ataxia for [id number] testing only on the right, not on the left. Could not check [id number] testing. Tone and bulk of muscles normal. Gait Not able to be checked. On general examination, there is no carotid bruit or murmur, S1-S2 audible. Abdomen is soft nontender. no organomegaly, bowel sounds present. Chest is clear. Peripheral pulses are present. No edema. Results - Laboratory Findings CBC and BMP: 12/03/21 04:15 12/03/21 04:12 Abnormal Lab Findings: Abnormal Labs 12/01/21 12/01/21 12/01/21 11:22 11:32 11:32 WBC 15.6 H RBC Hgb Hct Immature Gran # Neutrophils # 13.8 H Lymphocytes # Monocytes # Eosinophils # APTT 21.9 L Chloride 111 H Carbon Dioxide 21 L Est GFR (CKD-EPI)NonAf BUN/Creatinine Ratio Glucose 104 H Calcium AST Total Protein Albumin Urine Blood Ur Leukocyte Esterase Urine RBC Urine WBC Urine Mucus 12/02/21 12/03/21 12/03/21 15:25 04:12 04:15 WBC 14.36 H RBC 4.00 L Hgb 12.4 L Hct 37.3 L Immature Gran # 0.06 H Neutrophils # 12.19 H Lymphocytes # 0.80 L Monocytes # 1.27 H Eosinophils # 0.01 L APTT Chloride Carbon Dioxide Est GFR (CKD-EPI)NonAf 58.0 L BUN/Creatinine Ratio 11.00 L Glucose 122 H Calcium 8.5 L AST 40 H Total Protein 5.3 L Albumin 3.4 L Urine Blood Large H Ur Leukocyte Esterase Large H Urine RBC 59 H Urine WBC 17 H Urine Mucus Few H Assessment and Plan Assessment: * Right-sided weakness, rule out CVA. Examination revealed weakness of the right arm proximally > than distally, and mild weakness of the right leg. * Recent history of fall, with left hip fracture, status post left hip arthroplasty. * Parkinson's disease * Mild cognitive impairment * Hypertension * Previous history of TIA. * Hard of hearing * History of multiple falls in the past. Plan: * Patient will need workup for possible stroke. * MRI of the brain * Carotid Doppler * Fasting a.m. lipid panel, hemoglobin A1c * B12, folate, TSH. * Patient was given aspirin 324 mg loading dose, and will continue aspirin 81 mg daily. * Patient on Lovenox 40 mg subcu daily for DVT prophylaxis. * Patient's electronic past medical history mentions about atrial fibrillation. We will check EKG. * Neurology will follow. Thank you for the consult. Time with Patient: Greater than 30
[2021-12-05 10:45] LABS: LDL Cholesterol,Calculated 56.7 mg/dL (0.0-131.0)
[2021-12-05] MEDS: [UNRECOGNIZED DRUG - OTHER] BOTH EYES SCH ×6 (11:42→22:55)
--- NOTE | 2021-12-05 11:59 | P.PN ---
Subjective Progress Note Date: 12/05/21 Principal diagnosis: Status post IM nail left intertrochanteric femur fracture Patient was evaluated today at bedside, he is resting comfortably in his hospital bed. Attempt was made for discharge yesterday, they were unable to accommodate this at the subacute rehab center. Later in the day yesterday, there was concern of right-sided weakness. Internal medicine was able to discuss this with the patient after evaluation, they did consult neurology in the abdomen following the patient since then. Patient's discharge is obviously on hold at this time. While wresting today in bed, he appears comfortable. He demonstrates no acute right-sided symptoms, he sitting up in bed in a neutral position. He notes discomfort in the left lower extremity with weightbearing. The urinary cath remains in place at this time. No other orthopedic complaints noted. Objective - Vital Signs Vital signs: Vital Signs Temp 98.3 F 12/05/21 07:38 Pulse 65 12/05/21 07:38 Resp 17 12/05/21 07:38 BP 137/73 12/05/21 07:38 Pulse Ox 92 L 12/05/21 07:38 FiO2 Intake & Output 12/04/21 12/05/21 12/05/21 18:59 06:59 18:59 Output Total 420 550 Balance -420 -550 Output: Urine 420 550 Other: Voiding Method Indwelling Catheter Indwelling Catheter Indwelling Catheter - Exam Left lower extremity: Incision is clean, dry, and intact. Surgical dressings are all in good position and condition, no obvious drainage There is minimal soft tissue swelling and ecchymosis surrounding the medial and lateral aspects of the incision. Calf is soft, no tenderness with palpation. Plantar flexion, dorsiflexion, EHL, FHL are intact. Sensory exam to light touch throughout the extremity is intact, dorsal pedis pulses 2+. - Labs CBC & Chem 7: 12/03/21 04:15 12/03/21 04:12 Labs: Abnormal Lab Results - Last 24 Hours (Table) 12/05/21 Range/Units 07:00 HDL Cholesterol 33.90 L (40.00-60.00) mg/dL Assessment and Plan Assessment: Postoperative day #3 status post IM nail left intertrochanteric femur fracture Left hip osteoarthritis Status post fall from standing Other medical comorbidities Plan: Pain control, continue with his current medications DVT prophylaxis, continue with subcu medication Wound care, we'll continue to monitor dressings Weight-bear as tolerated left lower extremity, recommend use of walker at all times Encourage incentive spirometer Continue daily PT/OT Appreciate neurology recommendations Medical recommendations Discharge planning: On an orthopedic standpoint the patient is stable for discharge to subacute rehab Time with Patient: Less than 30
[2021-12-05] MEDS ORDERED: MAGNESIUM CITRATE 296 ML BOTTLE PO ONE (17:15)
--- NOTE | 2021-12-05 17:23 | P.PN ---
Progress Note - Text Progress Note Date: 12/05/21 - Chief Complaint Fall This is a pleasant 76-year-old patient follows Dr. Winters. Chronic stable medical conditions include Parkinson's, atrial fibrillation, hypertension, hyperlipidemia, hypothyroid, hard of hearing. History is obtained by the at the bedside. Some furniture was moved to return patient's room. Patient normally able to get from the house. Does use a cane and a walker when he is outside. Does use a walker to going to get the patient which is quite a distance from the main house. Gait dysfunction because of Parkinson's. Memory has been slowly declining. Normally appetite is good. Has a bowel movement every 2 or 3 days. Patient lost balance and fell. Subsequent fracture of the femur. No history of CAD. No chest pain or shortness of breath. December 02: Patient was seen this morning before surgery. Comfortable. at the bedside. Nothing by mouth. Late in the day underwent trochanteric nailing. December 03: Up in a chair.. Pain control. Oral intake fair. Breathing stable. December 04: Up in bed. Some pain at the surgical site. Eating okay. He'll be going to rehab today. December 05: Patient was noticed to be leaning on the right side yesterday. Discharge was held. Computed tomography scan of brain was ordered. No acute stroke reported. Neurology was consulted. December 06: Also again leaning to the right side. No focal symptoms. Speech unchanged. MRI ordered. Active Medications Acetaminophen (Acetaminophen Tab 325 Mg Tab) 650 mg PO Q6HR PRN PRN Reason: Mild Pain or Fever > 100.5 Last Admin: 12/04/21 19:11 Dose: 650 mg Hydrocodone Bitart/Acetaminophen (Hydrocodone/Apap 5-325mg 1 Each Tab) 1 each PO Q6HR PRN PRN Reason: Pain Amiodarone HCl (Amiodarone 100 Mg Tab) 100 mg PO [id number]@0900 [facility] Last Admin: 12/05/21 08:46 Dose: 100 mg Amlodipine Besylate (Amlodipine 2.5 Mg Tab) 2.5 mg PO DAILY [facility] Last Admin: 12/05/21 08:45 Dose: 2.5 mg Aspirin (Aspirin 81 Mg) 81 mg PO DAILY [facility] Last Admin: 12/05/21 08:45 Dose: 81 mg Atorvastatin Calcium (Atorvastatin 40 Mg Tab) 40 mg PO HS [facility] Last Admin: 12/04/21 20:52 Dose: 40 mg Carbidopa/Levodopa (Carbidopa-Levodopa 25-100 Mg 1 Each Tab) 2 each PO TID [facility] Last Admin: 12/05/21 16:59 Dose: 2 each Donepezil HCl (Donepezil 10 Mg Tab) 20 mg PO HS [facility] Last Admin: 12/04/21 20:52 Dose: 20 mg Enoxaparin Sodium (Enoxaparin 40 Mg/0.4 Ml Syringe) 40 mg SQ HS [facility] Last Admin: 12/04/21 20:53 Dose: 40 mg Finasteride (Finasteride 5 Mg Tab) 5 mg PO DAILY [facility] Last Admin: 12/05/21 08:45 Dose: 5 mg Hydromorphone HCl (Hydromorphone 0.5 Mg/0.5 Ml Syringe) 0.5 mg IVP Q3HR PRN PRN Reason: Moderate Pain Last Admin: 12/02/21 12:08 Dose: 0.5 mg Sodium Chloride (Saline 0.9%) 1,000 mls @ 75 mls/hr IV .[id number] [facility] Last Admin: 12/05/21 06:17 Dose: Not Given Ceftriaxone Sodium 1 gm/ (Sodium Chloride) 50 mls @ 100 mls/hr IVPB Q12HR [facility]; Protocol Last Admin: 12/05/21 08:45 Dose: 100 mls/hr Naloxone HCl (Naloxone 0.4 Mg/Ml 1 Ml Vial) 0.2 mg IV Q2M PRN PRN Reason: Opioid Reversal Oxervate (Cenegermin -Bkb) 0.002 % Ophthalmic Solution 1 drop BOTH EYES 1230,1430,1630,1830,2030,2230 [facility] Last Admin: 12/05/21 17:11 Dose: 1 drop Primidone (Primidone 25 Mg Tab) 75 mg PO DAILY [facility] Last Admin: 12/05/21 08:46 Dose: 75 mg Senna (Sennosides 8.6 Mg Tab) 8.6 mg PO DAILY [facility] Last Admin: 12/05/21 08:43 Dose: 8.6 mg Tramadol HCl (Tramadol 50 Mg Tab) 50 mg PO QID [facility] Last Admin: 12/05/21 17:09 Dose: Not Given Past medical history to include: Atrial fibrillation, stroke, hard of hearing, hypertension, hyperlipidemia, hypothyroid, Parkinson's, gait dysfunction Social history: History of smoking or alcohol. . Daughter Rosina is a POA Family history: Cancer Physical examination: VITAL SIGNS: 97.9, 16, 17, 1 58 x 79, 90% room air GENERAL: Laying in bed, comfortable. EYES: Pupils equal. Conjunctiva normal. HEENT: External appearance of nose and ears normal, oral cavity grossly normal. Hard of hearing NECK: JVD not raised; masses not palpable. HEART: First and second heart sounds are normal; no edema. LUNGS: Respiratory rate normal; clear to auscultation. ABDOMEN: Soft, nontender, liver spleen not palpable, no masses palpable. PSYCH: Able tonsil simple questions.l. MUSCULOSKELETAL:No Clubbing/cyanosis;muscles-grossly intact. Evidence of OA. Dressing over incision site NEUROLOGICAL: Noticed to be leaning on the bit on the right side. Some bradykinesia. No focal weakness. INVESTIGATIONS, reviewed in the clinical context: Carotid Doppler: No critical finding. Computed tomography scan brain: Mild atrophy. Hydrocephalus without change. Old left frontal lobe encephalomalacia. December 03: White count 14.3 hemoglobin 12.4 potassium 4.1 creatinine 1.2 White count 15.6 hemoglobin 14.3 platelets 210 potassium 4.3 creatinine 0.89 Femur x-ray: Nondisplaced ID fractured left femur. Assessment and plan: -Patient found to be leaning on the right side. Stroke workup in place.: New diagnosis Computed tomography scan unremarkable. Carotid Doppler noncritical. Pending MRI. Follow with neurology. -Left femur IT fracture or displacement secondary to mechanical fall/poor balance Trochanteric nailing done on December 02. By Dr. Murphy. 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 Because of risk of fall patient not on anticoagulation -Acute UTI with cystitis IV ceftriaxone. pan shover to [employer] Neurology consulted. MRI pending. Discussed with patient's family at the bedside.
[2021-12-05] MEDS: HYDROmorphone 0.5 MG/0.5 ML SYRINGE IVP PRN (19:15)
[2021-12-05] MEDS: ENOXAPARIN 40 MG/0.4 ML SYRINGE SQ SCH (21:41)
[2021-12-05] MEDS: ATORVASTATIN 40 MG TAB PO SCH (21:41)
[2021-12-05] MEDS: DONEPEZIL 10 MG TAB PO SCH (21:41)
[2021-12-06] MEDS: ASPIRIN 81 MG PO SCH (08:04)
[2021-12-06] MEDS: traMADol 50 MG TAB PO SCH ×4 (08:04→22:59)
[2021-12-06] MEDS: PRIMIDONE 25 MG TAB PO SCH (08:04)
[2021-12-06] MEDS: SENNOSIDES 8.6 MG TAB PO SCH (08:04)
[2021-12-06] MEDS: amLODIPine 2.5 MG TAB PO SCH (08:04)
[2021-12-06] MEDS: CARBIDOPA-LEVODOPA 25-100 MG 1 EACH TAB PO SCH ×3 (08:04→22:21)
[2021-12-06] MEDS: FINASTERIDE 5 MG TAB PO SCH (08:09)
[2021-12-06] MEDS ORDERED: CYANOCOBALAMIN 1,000 MCG/ML 1 ML VIAL IM ONE (09:41)
--- NOTE | 2021-12-06 09:50 | P.PN ---
Subjective Progress Note Date: 12/05/21 Patient was seen for a follow-up. Patient is laying comfortably in the bed. Offers no new complaints. Patient is much more alert and awake, interactive. Patient is hard of hearing. Objective - Vital Signs Vital signs: Vital Signs Temp 98.3 F 12/05/21 07:38 Pulse 65 12/05/21 07:38 Resp 17 12/05/21 07:38 BP 137/73 12/05/21 07:38 Pulse Ox 92 L 12/05/21 07:38 FiO2 Intake & Output 12/04/21 12/05/21 12/05/21 18:59 06:59 18:59 Output Total 420 550 Balance -420 -550 Output: Urine 420 550 Other: Voiding Method Indwelling Catheter Indwelling Catheter Indwelling Catheter - Exam Patient's mental status has improved. He is more alert and awake, interactive. Speech and language functions appears normal. Detail cognitive functions testing deferred. Cranial nerves are normal. Visual camilo full. Muscle strength still reveals weakness of the right shoulder about 3+ and biceps 4+ but normal triceps in the lightout examiner. Patient tends to hold his right elbow with his left hand constantly. He denies any pain but appears that there is some cindy n there. Lower extremities appears equal. Sensations are equal with no neglect. - Labs CBC & Chem 7: 12/03/21 04:15 12/03/21 04:12 Labs: Abnormal Lab Results - Last 24 Hours (Table) 12/05/21 Range/Units 07:00 HDL Cholesterol 33.90 L (40.00-60.00) mg/dL Assessment and Plan Assessment: * Right-sided weakness, rule out CVA. Examination revealed weakness of the right arm proximally > than distally, and mild weakness of the right leg. * Recent history of fall, with left hip fracture, status post left hip arthroplasty. * Parkinson's disease * Mild cognitive impairment * Hypertension * Previous history of TIA. * Hard of hearing * History of multiple falls in the past. Plan: * Patient will need workup for possible stroke. * Patient is guarding his right upper arm. Uncertain if there is some component of rotator cuff issue. Orthopedic already on board. * MRI of the brain pending. If the stroke is confirmed, then patient will need a 2-D echo as well. * Patient's electronic past medical history mentions about atrial fibrillation. Current telemetry monitoring showing sinus rhythm. EKG showed normal sinus rhythm. May need cardiology input, if a stroke is confirmed with MRI. * Carotid Doppler revealed minimal calcified plaque in the right carotid bifurcation with a less than 50% stenosis. Minimal plaque and no significant stenosis of the left ICA. Antegrade flow in both vertebral arteries. * Fasting a.m. lipid panel with cholesterol 112, LDL 56, HDL 33 and triglycerides 107. Continue Lipitor 40 mg daily. * Hemoglobin A1c 5.9 * B12 287, folate 12.4, TSH 5.34 normal. We will give B12 1000 g IM 1 and then start B12 1000 g orally daily. * Patient was given aspirin 324 mg loading dose, and will continue aspirin 81 mg daily. * Patient on Lovenox 40 mg subcu daily for DVT prophylaxis. * Dr. Jaziel Johnson will start neurology service in the morning.
--- NOTE | 2021-12-06 10:21 | P.PN ---
Subjective Progress Note Date: 12/06/21 Principal diagnosis: Status post IM nail left intertrochanteric femur fracture Patient was evaluated today at bedside, he is resting comfortably in his hospital bed. He states that the left leg is doing better. I was contacted by nursing yesterday, while working with physical therapy they did have to lower him to the ground. After the incident, he complained of no worsening pain in the left lower extremity. He continues to require a lot of assistance with ambulation. He is being followed by both internal medicine and neurology. Primary admission has been changed to internal medicine. Objective - Vital Signs Vital signs: Vital Signs Temp 97.2 F L 12/06/21 08:00 Pulse 63 12/06/21 08:06 Resp 16 12/06/21 08:06 BP 169/79 12/06/21 08:00 Pulse Ox 96 12/06/21 08:00 FiO2 Intake & Output 12/05/21 12/06/21 12/06/21 18:59 06:59 18:59 Output Total 350 Balance -350 Output: Urine 350 Other: Voiding Method Indwelling Catheter External Catheter External Catheter # Voids 4 # Bowel Movements 2 - Exam Left lower extremity: Incision is clean, dry, and intact. Surgical dressings are all in good position and condition, no obvious drainage There is minimal soft tissue swelling and ecchymosis surrounding the medial and lateral aspects of the incision. Calf is soft, no tenderness with palpation. Plantar flexion, dorsiflexion, EHL, FHL are intact. Sensory exam to light touch throughout the extremity is intact, dorsal pedis pulses 2+. - Labs CBC & Chem 7: 12/03/21 04:15 12/03/21 04:12 Labs: Abnormal Lab Results - Last 24 Hours (Table) 12/05/21 Range/Units 07:00 HDL Cholesterol 33.90 L (40.00-60.00) mg/dL Assessment and Plan Assessment: Postoperative day #4 status post IM nail left intertrochanteric femur fracture Left hip osteoarthritis Status post fall from standing Other medical comorbidities Plan: Pain control, continue with his current medications DVT prophylaxis, continue with subcu medication Wound care, we'll continue to monitor dressings Weight-bear as tolerated left lower extremity, recommend use of walker at all times Encourage incentive spirometer Continue daily PT/OT Appreciate neurology recommendations Medical recommendations Discharge planning: Orthopedically patient remains stable Time with Patient: Less than 30
[2021-12-06 12:28] LABS: Basophils % (A) 1 %; Eosinophils # (A) 0.4 k/uL (0-0.7); Eosinophils % (A) 4 %; Lymphocytes # (A) 0.8 k/uL (1.0-4.8); Lymphocytes % (A) 10 %; MCHC 33.7 g/dL (31.0-37.0); MCV 95.1 fL (80.0-100.0); Monocytes # (A) 0.6 k/uL (0-1.0); Monocytes % (A) 7 %; Neutrophils # (A) 6.4 k/uL (1.3-7.7); Neutrophils % (A) 77 %; Platelet Count 209 k/uL (150-450); RBC 3.37 m/uL (4.30-5.90); RDW 14.1 % (11.5-15.5); WBC 8.4 k/uL (3.8-10.6)
[2021-12-06 12:33] LABS: HGB 10.8 gm/dL (13.0-17.5)
[2021-12-06] MEDS: [UNRECOGNIZED DRUG - OTHER] BOTH EYES SCH ×6 (12:42→22:20)
[2021-12-06] MEDS: SODIUM CHLORIDE 0.9% 1,000 ML IV SCH (22:08)
[2021-12-06] MEDS ORDERED: amLODIPine 2.5 MG TAB PO STA (22:12)
--- NOTE | 2021-12-06 22:13 | P.PN ---
Progress Note - Text Progress Note Date: 12/06/21 - Chief Complaint Fall This is a pleasant 76-year-old patient follows Dr. Winters. Chronic stable medical conditions include Parkinson's, atrial fibrillation, hypertension, hyperlipidemia, hypothyroid, hard of hearing. History is obtained by the at the bedside. Some furniture was moved to return patient's room. Patient normally able to get from the house. Does use a cane and a walker when he is outside. Does use a walker to going to get the patient which is quite a distance from the main house. Gait dysfunction because of Parkinson's. Memory has been slowly declining. Normally appetite is good. Has a bowel movement every 2 or 3 days. Patient lost balance and fell. Subsequent fracture of the femur. No history of CAD. No chest pain or shortness of breath. December 02: Patient was seen this morning before surgery. Comfortable. at the bedside. Nothing by mouth. Late in the day underwent trochanteric nailing. December 03: Up in a chair.. Pain control. Oral intake fair. Breathing stable. December 04: Up in bed. Some pain at the surgical site. Eating okay. He'll be going to rehab today. December 05: Patient was noticed to be leaning on the right side yesterday. Discharge was held. Computed tomography scan of brain was ordered. No acute stroke reported. Neurology was consulted. No focal symptoms. Speech unchanged. MRI ordered. December 06: Leaning on the right side. MRI. At this afternoon. Spoke to the at the bedside. Carotid Doppler unremarkable. Active Medications Acetaminophen (Acetaminophen Tab 325 Mg Tab) 650 mg PO Q6HR PRN PRN Reason: Mild Pain or Fever > 100.5 Last Admin: 12/04/21 19:11 Dose: 650 mg Hydrocodone Bitart/Acetaminophen (Hydrocodone/Apap 5-325mg 1 Each Tab) 1 each PO Q6HR PRN PRN Reason: Pain Amiodarone HCl (Amiodarone 100 Mg Tab) 100 mg PO SuWeSa@0900 [facility] Last Admin: 12/05/21 08:46 Dose: 100 mg Amlodipine Besylate (Amlodipine 2.5 Mg Tab) 2.5 mg PO DAILY [facility] Last Admin: 12/06/21 08:04 Dose: 2.5 mg Aspirin (Aspirin 81 Mg) 81 mg PO DAILY [facility] Last Admin: 12/06/21 08:04 Dose: 81 mg Atorvastatin Calcium (Atorvastatin 40 Mg Tab) 40 mg PO HS [facility] Last Admin: 12/05/21 21:41 Dose: 40 mg Carbidopa/Levodopa (Carbidopa-Levodopa 25-100 Mg 1 Each Tab) 2 each PO TID [facility] Last Admin: 12/06/21 17:09 Dose: 2 each Cyanocobalamin (Cyanocobalamin 500 Mcg Tab) 1,000 mcg PO DAILY [facility] Donepezil HCl (Donepezil 10 Mg Tab) 20 mg PO HS [facility] Last Admin: 12/05/21 21:41 Dose: 20 mg Enoxaparin Sodium (Enoxaparin 40 Mg/0.4 Ml Syringe) 40 mg SQ HS [facility] Last Admin: 12/05/21 21:41 Dose: 40 mg Finasteride (Finasteride 5 Mg Tab) 5 mg PO DAILY [facility] Last Admin: 12/06/21 08:09 Dose: 5 mg Hydromorphone HCl (Hydromorphone 0.5 Mg/0.5 Ml Syringe) 0.5 mg IVP Q3HR PRN PRN Reason: Moderate Pain Last Admin: 12/05/21 19:15 Dose: 0.5 mg Sodium Chloride (Saline 0.9%) 1,000 mls @ 75 mls/hr IV .[id number] [facility] Last Admin: 12/06/21 22:08 Dose: Not Given Ceftriaxone Sodium 1 gm/ (Sodium Chloride) 50 mls @ 100 mls/hr IVPB Q12HR [facility]; Protocol Last Admin: 12/06/21 08:04 Dose: 100 mls/hr Naloxone HCl (Naloxone 0.4 Mg/Ml 1 Ml Vial) 0.2 mg IV Q2M PRN PRN Reason: Opioid Reversal Oxervate (Cenegermin -Bkb) 0.002 % Ophthalmic Solution 1 drop BOTH EYES 123 0,1430,1630,1830,2030,2230 [facility] Last Admin: 12/06/21 18:17 Dose: 1 drop Primidone (Primidone 25 Mg Tab) 75 mg PO DAILY [facility] Last Admin: 12/06/21 08:04 Dose: 75 mg Senna (Sennosides 8.6 Mg Tab) 8.6 mg PO DAILY [facility] Last Admin: 12/06/21 08:04 Dose: 8.6 mg Tramadol HCl (Tramadol 50 Mg Tab) 50 mg PO QID [facility] Last Admin: 12/06/21 17:09 Dose: 50 mg Past medical history to include: Atrial fibrillation, stroke, hard of hearing, hypertension, hyperlipidemia, hypothyroid, Parkinson's, gait dysfunction Social history: History of smoking or alcohol. . Daughter Rosina is a POA Family history: Cancer Physical examination: VITAL SIGNS: 97.3, 66, 16, 1 6285, 94% on 3 L GENERAL: Laying in bed, comfortable. EYES: Pupils equal. Conjunctiva normal. HEENT: External appearance of nose and ears normal, oral cavity grossly normal. Hard of hearing NECK: JVD not raised; masses not palpable. HEART: First and second heart sounds are normal; no edema. LUNGS: Respiratory rate normal; clear to auscultation. ABDOMEN: Soft, nontender, liver spleen not palpable, no masses palpable. PSYCH: Able tonsil simple questions.l. MUSCULOSKELETAL:No Clubbing/cyanosis;muscles-grossly intact. Evidence of OA. Dressing over incision site NEUROLOGICAL: Noticed to be leaning on the bit on the right side. Some bradykinesia. No focal weakness. INVESTIGATIONS, reviewed in the clinical context: Carotid Doppler: No critical finding. Computed tomography scan brain: Mild atrophy. Hydrocephalus without change. Old left frontal lobe encephalomalacia. December 03: White count 14.3 hemoglobin 12.4 potassium 4.1 creatinine 1.2 White count 15.6 hemoglobin 14.3 platelets 210 potassium 4.3 creatinine 0.89 Femur x-ray: Nondisplaced ID fractured left femur. Assessment and plan: -Patient found to be leaning on the right side. Stroke workup in place.: New diagnosis Computed tomography scan unremarkable. Carotid Doppler noncritical. Pending MRI. Follow with neurology. -Left femur IT fracture or displacement secondary to mechanical fall/poor balance Trochanteric nailing done on December 02. By Dr. Murphy. -Hyperlipidemia Crestor 20 mg daily at bedtime -Essential hypertension Increase amlodipine to 5 mg a day. -BPH Proscar 5 mg daily -Moderate cognitive impairment secondary to Parkinson's Aricept 20 mg daily at bedtime -Idiopathic Parkinson disorder Sinemet 25/102 tablets 3 times a day -Atrial fibrillation Cordarone 200 mg as directed. Because of risk of fall patient not on anticoagulation -Acute UTI with cystitis IV ceftriaxone. 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 Increase amlodipine. On Omnicef. Discussed with . Follow with neurology.
[2021-12-06] MEDS: ENOXAPARIN 40 MG/0.4 ML SYRINGE SQ SCH (22:20)
[2021-12-06] MEDS: DONEPEZIL 10 MG TAB PO SCH (22:21)
[2021-12-06] MEDS: ATORVASTATIN 40 MG TAB PO SCH (22:21)
[2021-12-07] MEDS: SODIUM CHLORIDE 0.9% 1,000 ML IV SCH (00:20)
[2021-12-07] MEDS: PRIMIDONE 25 MG TAB PO SCH (07:47)
[2021-12-07] MEDS: SENNOSIDES 8.6 MG TAB PO SCH (07:48)
[2021-12-07] MEDS: traMADol 50 MG TAB PO SCH ×2 (07:48→13:36)
[2021-12-07] MEDS: CARBIDOPA-LEVODOPA 25-100 MG 1 EACH TAB PO SCH (07:48)
[2021-12-07] MEDS: ASPIRIN 81 MG PO SCH (07:49)
[2021-12-07] MEDS: FINASTERIDE 5 MG TAB PO SCH (07:49)
[2021-12-07 07:59] VITALS: BP 167/60; PULSE 71; RESP 20; TEMP 97.5
[2021-12-07] MEDS ORDERED: CYANOCOBALAMIN 500 MCG TAB PO SCH (09:00)
[2021-12-07] MEDS ORDERED: amLODIPine 5 MG TAB PO SCH (09:00)
--- NOTE | 2021-12-07 09:06 | P.PN ---
Subjective Progress Note Date: 12/07/21 Principal diagnosis: Status post IM nail left intertrochanteric femur fracture Patient was evaluated today at bedside, he is resting comfortably in his hospital bed. MRI was just showing up to take patient down for his test. He has no acute orthopedic complaints at this time. He notes soreness in the left lower extremity with motion. Objective - Vital Signs Vital signs: Vital Signs Temp 97.5 F L 12/07/21 07:58 Pulse 71 12/07/21 07:58 Resp 20 12/07/21 07:58 BP 167/60 12/07/21 07:58 Pulse Ox 95 12/07/21 07:58 FiO2 Intake & Output 12/06/21 12/07/21 12/07/21 18:59 06:59 18:59 Intake Total 925 Output Total 850 800 Balance 75 -800 Intake: Intake, IV Titration 925 Amount Sodium Chloride 0.9% 1, 825 000 ml @ 75 mls/hr IV . [id number] [facility] Rx#:[id number] cefTRIAXone 1 gm In 100 Sodium Chloride 0.9% 50 ml @ 100 mls/hr IVPB Q12HR [facility] Rx#:[id number] Output: Urine 850 800 Other: Voiding Method External Catheter External Catheter - Exam Left lower extremity: Incision is clean, dry, and intact. Surgical dressings are all in good position and condition, no obvious drainage There is minimal soft tissue swelling and ecchymosis surrounding the medial and lateral aspects of the incision. Calf is soft, no tenderness with palpation. Plantar flexion, dorsiflexion, EHL, FHL are intact. Sensory exam to light touch throughout the extremity is intact, dorsal pedis pulses 2+. - Labs CBC & Chem 7: 12/06/21 11:53 12/03/21 04:12 Labs: Abnormal Lab Results - Last 24 Hours (Table) 12/06/21 Range/Units 11:53 RBC 3.37 L (4.30-5.90) m/uL Hgb 10.8 L D (13.0-17.5) gm/dL Hct 32.0 L (39.0-53.0) % Lymphocytes # 0.8 L (1.0-4.8) k/uL Assessment and Plan Assessment: Postoperative day #5 status post IM nail left intertrochanteric femur fracture Left hip osteoarthritis Status post fall from standing Other medical comorbidities Plan: Pain control, continue with his current medications DVT prophylaxis, continue with subcu medication Wound care, we'll continue to monitor dressings Weight-bear as tolerated left lower extremity, recommend use of walker at all times Encourage incentive spirometer Continue daily PT/OT Appreciate neurology recommendations Medical recommendations Discharge planning: Orthopedically patient remains stable Time with Patient: Less than 30
--- NOTE | 2021-12-07 10:20 | MR ---
EXAMINATION TYPE: MR brain wo con DATE OF EXAM: 12/07/2021 COMPARISON: CT brain 12/04/2021 HISTORY: CVA TECHNIQUE: T1-weighted sagittal, T2, FLAIR, and diffusion axial, and T2 coronal coronal views of the brain are submitted. FINDINGS: There is no evidence of acute ischemia. There remains moderate to severe central dilation of the vent ricular system suggestive of hydrocephalus. Abnormal signal white matter is nonspecific can be relate d to remote white matter ischemia or possibly transependymal edema. Area of encephalomalacia involvin g the left frontal lobe. Orbits are symmetric. Changes of mild chronic sinusitis. Exam is limited due to artifact and motion. Nonspecific area of low signal on all sequences involving the left cerebral peduncle may be on the ba sis of an area of remote ischemia. Suspect a small arachnoid cyst anterior temporal fossa measuring 1.9 cm. Craniocervical junction maintained. Sella turcica has a normal appearance. IMPRESSION: 1. No acute ischemia on diffusion imaging. 2. There is moderate to severe central ventricular dilation correlate for hydrocephalus. Abnormal sig nal involving the white matter could be on the basis of remote ischemia or transependymal edema. Ence phalomalacia in the left frontal lobe.
[2021-12-07] MEDS: [UNRECOGNIZED DRUG - OTHER] BOTH EYES SCH (12:28)
--- NOTE | 2021-12-07 13:31 | P.DS ---
Providers Date of admission: 12/01/21 08:33 Expected date of discharge: 12/07/21 Attending physician: Morgan Dang Consults: 12/01/21 08:40 Consult Physician Routine Consulting Provider: Hugh Winters Consult Reason/Comments: Medical Management Do you want consulting provider notified?: Yes 12/01/21 10:49 Consult Physician Routine Consulting Provider: Mario Murphy Consult Reason/Comments: Hip Fracture Do you want consulting provider notified?: Yes 12/04/21 15:45 Consult Physician Routine Consulting Provider: Estrada Boone Consult Reason/Comments: leaning to right side; hx of cva/tia Do you want consulting provider notified?: Yes Primary care physician: [facility] Course: - Chief Complaint Fall This is a pleasant 76-year-old patient follows Dr. Winters. Chronic stable medical conditions include Parkinson's, atrial fibrillation, hypertension, hyperlipidemia, hypothyroid, hard of hearing. History is obtained by the at the bedside. Some furniture was moved to return patient's room. Patient normally able to get from the house. Does use a cane and a walker when he is outside. Does use a walker to going to get the patient which is quite a distance from the main house. Gait dysfunction because of Parkinson's. Memory has been slowly declining. Normally appetite is good. Has a bowel movement every 2 or 3 days. Patient lost balance and fell. Subsequent fracture of the femur. No history of CAD. No chest pain or shortness of breath. December 02: Patient was seen this morning before surgery. Comfortable. at the bedside. Nothing by mouth. Late in the day underwent trochanteric nailing. December 03: Up in a chair.. Pain control. Oral intake fair. Breathing stable. December 04: Up in bed. Some pain at the surgical site. Eating okay. He'll be going to rehab today. December 05: Patient was noticed to be leaning on the right side yesterday. Discharge was held. Computed tomography scan of brain was ordered. No acute stroke reported. Neurology was consulted. No focal symptoms. Speech unchanged. MRI ordered. December 06: Leaning on the right side. MRI. At this afternoon. Spoke to the at the bedside. Carotid Doppler unremarkable. December 07: MRI of the brain did not show any acute stroke. Shows moderate to severe ventricular dilatation correlate for hydrocephalus. Patient is cleared by neurology for discharge. Going to rehab. Rehab will cover patient's eyedrops oxervate which the patient uses for keratitis. Being followed by Dr. hall Past medical history to include: Atrial fibrillation, stroke, hard of hearing, hypertension, hyperlipidemia, hypothyroid, Parkinson's, gait dysfunction Social history: History of smoking or alcohol. . Daughter Rosina is a POA Family history: Cancer Physical examination: VITAL SIGNS: 97.5, 71, 20, 1 67 x 60, 95% on 3 L GENERAL: Laying in bed, comfortable. EYES: Pupils equal. Conjunctiva normal. HEENT: External appearance of nose and ears normal, oral cavity grossly normal. Hard of hearing NECK: JVD not raised; masses not palpable. HEART: First and second heart sounds are normal; no edema. LUNGS: Respiratory rate normal; clear to auscultation. ABDOMEN: Soft, nontender, liver spleen not palpable, no masses palpable. PSYCH: Able tonsil simple questions.l. MUSCULOSKELETAL:No Clubbing/cyanosis;muscles-grossly intact. Evidence of OA. Dressing over incision site NEUROLOGICAL: Noticed to be leaning on the bit on the right side. Some bradykinesia. No focal weakness. INVESTIGATIONS, reviewed in the clinical context: MRI brain: No stroke. Moderate to severe central ventricular dilatation for hydrocephalus. Encephalomalacia in the left frontal lobe. December 06: White count 8.4 hemoglobin 10.8 platelets 209 Carotid Doppler: No critical finding. Computed tomography scan brain: Mild atrophy. Hydrocephalus without change. Old left frontal lobe encephalomalacia. December 03: White count 14.3 hemoglobin 12.4 potassium 4.1 creatinine 1.2 White count 15.6 hemoglobin 14.3 platelets 210 potassium 4.3 creatinine 0.89 Femur x-ray: Nondisplaced ID fractured left femur. Assessment and plan: -Patient found to be leaning on the right side. Computed tomography scan unremarkable. Carotid Doppler noncritical. Negative for stroke on MRI. Follow with neurology. -Moderate to severe central ventricular dilatation correlate for hydrocephalus. Patient to follow-up with his on neurologist. Outpatient -Left femur IT fracture or displacement secondary to mechanical fall/poor balance Trochanteric nailing done on December 02. By Dr. Murphy. Subcu Lovenox for DVT prophylaxis -Hyperlipidemia Crestor 20 mg daily at bedtime -Essential hypertension amlodipine to 5 mg a day. -Keratitis Continue oxervate. Being followed by -BPH Proscar 5 mg daily -Moderate cognitive impairment secondary to Parkinson's Aricept 20 mg daily at bedtime -Idiopathic Parkinson disorder Sinemet 25/102 tablets 3 times a day -Atrial fibrillation Cordarone 200 mg as directed. Because of risk of fall patient not on anticoagulation -Acute UTI with cystitis IV ceftriaxone. cover remover to Omnicef 300 mg twice a day for 5 days Disposition: Rehab at [facility] Assessment: Left hip IT fracture Patient Condition at Discharge: Good Plan - Discharge Summary Discharge Rx Participant: Yes New Discharge Prescriptions: New Enoxaparin [Lovenox] 40 mg SQ DAILY #27 each Docusate [Colace] 100 mg PO DAILY #30 capsule Acetaminophen Tab [Tylenol] 650 mg PO Q6HR PRN tab PRN Reason: Mild Pain Or Fever > 100.5 Aspirin 81 mg PO DAILY tab amLODIPine [Norvasc] 5 mg PO DAILY tab Cyanocobalamin [Vitamin B-12] 1,000 mcg PO DAILY tab Sennosides [Senokot] 8.6 mg PO DAILY tab Cefdinir [Omnicef] 300 mg PO Q12HR #10 capsule Continue Finasteride [Proscar] 5 mg PO DAILY Amiodarone [Cordarone] 100 mg PO WE Carbidopa-Levodopa 25-100 mg [Sinemet 25-100 mg] 2 tab PO TID Donepezil HCl [Aricept] 20 mg PO HS Primidone [Mysoline] 75 mg PO DAILY Rosuvastatin [Crestor] 20 mg PO HS Discontinued Cenegermin-Bkbj [Oxervate] 1 drop BOTH EYES DIRECTED Discharge Medication List Finasteride [Proscar] 5 mg PO DAILY 11/25/14 [History] Amiodarone [Cordarone] 100 mg PO SUWESA 12/21/17 [History] Carbidopa-Levodopa 25-100 mg [Sinemet 25-100 mg] 2 tab PO TID 08/28/18 [History] Donepezil HCl [Aricept] 20 mg PO HS 08/28/18 [History] Primidone [Mysoline] 75 mg PO DAILY 06/17/21 [History] Rosuvastatin [Crestor] 20 mg PO HS 06/17/21 [History] Docusate [Colace] 100 mg PO DAILY #30 capsule 12/03/21 [Rx] Enoxaparin [Lovenox] 40 mg SQ DAILY #27 each 12/03/21 [Rx] Acetaminophen Tab [Tylenol] 650 mg PO Q6HR PRN tab 12/04/21 [Rx] Sennosides [Senokot] 8.6 mg PO DAILY tab 12/04/21 [Rx] Aspirin 81 mg PO DAILY tab 12/07/21 [Rx] Cefdinir [Omnicef] 300 mg PO Q12HR #10 capsule 12/07/21 [Rx] Cyanocobalamin [Vitamin B-12] 1,000 mcg PO DAILY tab 12/07/21 [Rx] amLODIPine [Norvasc] 5 mg PO DAILY tab 12/07/21 [Rx] Follow up Appointment(s)/Referral(s): Hugh Winters DO [Primary Care Provider] - 1-2 days (office closed at time of discharge. Please call to schedule appointment) Urban Velasquez PAC [PHYSICIAN [employer]IPE LINE W[employer]ER] - 2 Weeks (office closed at time of discharge, Please call on Monday to schedule appointment ) Patient Instructions/Handouts: ORIF of Hip Fracture (DC) Activity/Diet/Wound Care/Special Instructions: Per Dr. Dagn -resume home dose of Oxervate while at rehab. Orthopedic Discharge Instructions: 1. Wound care and infection precautions, keep incision dry and covered while showering, no lotions, creams, moisturizers. No soaking, pools, hot tubs. Do not scrub over incision. 2. Weight-bear as tolerated with walker / cane until follow-up. 3. Ice and elevate when necessary. Do not exceed 20 minutes per hour with ice pack. 4. Physical therapy at rehab 5. Pain meds and anticoagulants per prescription. 6. Pain medication has potential to cause constipation. Increase oral fluid and fiber intake. Contact primary care provider if you have not had a bowel movement within 48 hours after discharge. 7. No anti-inflammatory medication until discussed at first post operative visit, this including Motrin, Aleve, Mobic, Diclofenac. 8. Follow up in office at 2 weeks postop with Yaniv Velasquez PA-C / Cong Toscano PA-C 9. Follow up with your primary care doctor 7-10 days after discharge. 10. Contact [facility] with any questions, . Keep incision clean, dry, intact. While showering, cover incision with Saran wrap. Silver foam dressing may be removed in 7 days, , 12/09/2021 Medications: Tramadol; Lovenox; Colace Discharge Disposition: TRANSFER TO SNF/ECF
--- NOTE | 2021-12-07 14:02 | P.PN ---
Subjective Progress Note Date: 12/07/21 I am seeing the patient for the first time during this admission for neurological management. Please refer to Dr. Boone's note for further details. It seems the patient has right hand weakness and Dr. Boone was concerned about a possible stroke. I spoke with his , and she stated patient has history of Parkinson's disease, having multiple falls. Patient has seen numerous neurologist in past. His currently following-up with Dr. Banks's team for neurological management. Objective - Vital Signs Vital signs: Vital Signs Temp 97.5 F L 12/07/21 07:58 Pulse 71 12/07/21 07:58 Resp 20 12/07/21 07:58 BP 167/60 12/07/21 07:58 Pulse Ox 95 12/07/21 07:58 FiO2 Intake & Output 12/06/21 12/07/21 12/07/21 18:59 06:59 18:59 Intake Total 925 Output Total 850 800 Balance 75 -800 Intake: Intake, IV Titration 925 Amount Sodium Chloride 0.9% 1, 825 000 ml @ 75 mls/hr IV . [id number] REPLACED BY [facility] Rx#:[id number] cefTRIAXone 1 gm In 100 Sodium Chloride 0.9% 50 ml @ 100 mls/hr IVPB Q12HR ISABELLA Rx#:[id number] Output: Urine 850 800 Other: Voiding Method External Catheter External Catheter - Exam GENERAL: The patient is lying in bed and is not in acute distress. NEUROLOGICAL: Higher mental function: The patient is awake, alert, oriented to self, place and time. Patient is following simple commands. Somewhat slow in following. No aphasia and no neglect. Cranial nerves: The pupils are round, equal. Visual camilo are full to confrontation throughout. Extraocular movement is intact no nystagmus is noted. The facial strength is normal throughout. Tongue is midline and moved [id number] without any difficulty. No dysarthria is noted. 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 Left upper and right lower extremity is 5/5. Left lower extremity is antigravity (has limitation because of previous trauma according to ). Normal tone and bulk. Sensation: Sensation is normal to touch throughout. Reflexes (right/left):2+ in uppers. MRI Brain: It is reported as no acute ischemia on diffusion imaging. There is moderate to severe central ventricle dilation correlate for hydrocephalus. Abn ormal signal involving the white matter could be basis of remote ischemia or transverse happened Imel edema. Encephalomalacia in the left frontal lobe. I do agree there is no acute or subacute ischemia. I do feel that the ventricle is severely dilated compared to the patient's age and there is a concern for hydrocephalus possibly from normal pressure hydrocephalus. Carotid duplex is reported as no significant interval change compared to prior study. Mild calcified plaque at the right carotid bifurcation was less than 50% stenosis. Normal plaque and no significant stenosis of the left carotid bifurcation. - Labs CBC & Chem 7: 12/06/21 11:53 12/03/21 04:12 Assessment and Plan Assessment: * Right upper extremity weakness. Rule out cervical spondylosis as cause. Negative for stroke on MRI * Possible Normal pressure hydrocephalus (recurrent falls, dilated ventricles). * Recent history of fall, with left hip fracture, status post left hip arthroplasty. * Parkinson's disease * Mild cognitive impairment * Hypertension * Previous history of TIA. * Hard of hearing * History of multiple falls in the past. Plan: * Recommend MRI of the cervical spine and the patient would like this to be done as an outpatient. Recommend EMG of right upper extremity as an outpatient. * Recommend large volume tap for possibility of normal pressure hydrocephalus especially with dilated ventricle on the MRI and proportion the patient's age and his recurrent falls. This is to be addressed by his neurologist as an outpatient and it at if there is improvement recommend WHITE SUGAR PAN TANK OPERATOR shunt. * Patient to follow-up with his neurologist (Dr. Banks) as outpatient within 1-2 weeks. Otherwise no additional neurological workup is needed. The plan was discussed with the patient's and his nurse. Jaziel Johnson M.D. Neuro-Hospitalist Time with Patient: Less than 30
== END 2021-12-07 15:12 | DRG 481 ==
LOC: EC 05:37 → 4SSUR 08:33
PROVIDERS: ADMIT Hospitalist; ATTEND Hospitalist
PROC: 8E0YXBF Computer Assisted Procedure of Lower Extremity, With Fluoroscopy (ICD-10-PCS; 2021-12-02)
PROC: 0QS736Z Reposition Left Upper Femur with Intramedullary Internal Fixation Device, Percutaneous Approach (ICD-10-PCS; principal; 2021-12-02 14:25)
DX: S72.142A Displaced intertrochanteric fracture of left femur, initial encounter for closed fracture (principal); G91.9 Hydrocephalus, unspecified; E03.9 Hypothyroidism, unspecified; E78.5 Hyperlipidemia, unspecified; F02.80 Dementia in other diseases classified elsewhere, unspecified severity, without behavioral disturbance, psychotic disturbance, mood disturbance, and anxiety; G20 Parkinson's disease; G31.84 Mild cognitive impairment of uncertain or unknown etiology; I10 Essential (primary) hypertension; R53.1 Weakness; G93.89 Other specified disorders of brain; G31.89 Other specified degenerative diseases of nervous system; H16.9 Unspecified keratitis; H91.90 Unspecified hearing loss, unspecified ear; I48.91 Unspecified atrial fibrillation; M16.12 Unilateral primary osteoarthritis, left hip; N30.90 Cystitis, unspecified without hematuria; N40.0 Benign prostatic hyperplasia without lower urinary tract symptoms; R29.6 Repeated falls; W06.XXXA Fall from bed, initial encounter; Y92.009 Unspecified place in unspecified non-institutional (private) residence as the place of occurrence of the external cause; Z79.82 Long term (current) use of aspirin; Z79.899 Other long term (current) drug therapy; Z86.73 Personal history of transient ischemic attack (TIA), and cerebral infarction without residual deficits; Z87.891 Personal history of nicotine dependence; Z91.81 History of falling; Z96.642 Presence of left artificial hip joint; Z98.42 Cataract extraction status, left eye; Z87.19 Personal history of other diseases of the digestive system
CPT/HCPCS: 70450; 70551; 71045; 73502; 80053; 80061; 81001; 82607; 82746; 83036; 83735; 84443; 85025; 85610; 85730; 87086; 93005; 93880; 96374; 96375; 96376; 99285

== ENCOUNTER 2023-09-27 16:32 | Emergency (ER) | payer MEDICARE ==
--- NOTE | 2023-09-27 17:59 | ED ---
General Adult HPI - General Chief complaint: Head Injury Stated complaint: Head Injury Time Seen by Provider: 09/27/23 17:12 Source: patient, family, RN notes reviewed Mode of arrival: ambulatory Limitations: no limitations - History of Present Illness Initial comments: Patient is a pleasant 77-year-old male presenting to the emergency department with concerns for head injury. Injury occurred yesterday evening. Patient was bending over and lost balance. Patient states this is chronic problem for him secondary to history of Parkinson's. No headache. No neck pain. No loss of consciousness. Patient only takes aspirin, no other anticoagulation. There was some bleeding last night, none significantly today. had question today if patient may need sutures. - Related Data Home Medications Medication Instructions Recorded Confirmed Finasteride [Proscar] 5 mg PO DAILY 11/25/14 12/01/21 Amiodarone [Cordarone] 100 mg PO SUWESA 12/21/17 12/01/21 Carbidopa-Levodopa 25-100 mg 2 tab PO TID 08/28/18 12/01/21 [Sinemet 25-100 mg] Donepezil HCl [Aricept] 20 mg PO HS 08/28/18 12/01/21 Primidone [Mysoline] 75 mg PO DAILY 06/17/21 12/01/21 Rosuvastatin [Crestor] 20 mg PO HS 06/17/21 12/01/21 Previous Rx's Medication Instructions Recorded Docusate [Colace] 100 mg PO DAILY #30 capsule 12/03/21 Enoxaparin [Lovenox] 40 mg SQ DAILY #27 each 12/03/21 Acetaminophen Tab [Tylenol] 650 mg PO Q6HR PRN tab 12/04/21 Sennosides [Senokot] 8.6 mg PO DAILY tab 12/04/21 Aspirin 81 mg PO DAILY tab 12/07/21 Cefdinir [Omnicef] 300 mg PO Q12HR #10 capsule 12/07/21 Cyanocobalamin [Vitamin B-12] 1,000 mcg PO DAILY tab 12/07/21 amLODIPine [Norvasc] 5 mg PO DAILY tab 12/07/21 Allergies Allergy/AdvReac Type Severity Reaction Status Date / Time No Known Allergies Allergy Verified 09/27/23 16:40 Review of Systems ROS Statement: Those systems with pertinent positive or pertinent negative responses have been documented in the HPI. ROS Other: All systems not noted in ROS Statement are negative. Constitutional: Denies: fever Eyes: Denies: eye pain ENT: Denies: ear pain Respiratory: Denies: cough Cardiovascular: Denies: chest pain Endocrine: Denies: fatigue Neurological: Denies: headache, weakness, confusion Past Medical History Past Medical History: Atrial Fibrillation, CVA/TIA, Hearing Disorder / Deafness, Hyperlipidemia, Hypertension, Thyroid Disorder Additional Past Medical History / Comment(s): very [place], unsteady on feet, Parkinson's History of Any Multi-Drug Resistant Organisms: None Reported Past Surgical History: Hernia Repair, Orthopedic Surgery Additional Past Surgical History / Comment(s): Right femur surgery, thyroid biopsy, left cataract Past Anesthesia/Blood Transfusion Reactions: No Reported Reaction Past Psychological History: No Psychological Hx Reported Smoking Status: Never smoker Past Alcohol Use History: None Reported Past Drug Use History: None Reported - Past Family History Mother Family Medical History: Cancer General Exam Limitations: no limitations General appearance: alert, in no apparent distress Head exam: Present: other (Forehead abrasion) Eye exam: Present: normal appearance, PERRL, EOMI Neck exam: Present: normal inspection. Absent: tenderness Respiratory exam: Present: normal lung sounds bilaterally Cardiovascular Exam: Present: regular rate, normal rhythm GI/Abdominal exam: Present: soft. Absent: tenderness Extremities exam: Present: normal inspection, full ROM. Absent: tenderness Neurological exam: Present: alert, oriented X3, CN II-XII intact. Absent: motor sensory deficit Expanded Neurological exam: Present: protecting the airway Speech: Present: fluid speech Cranial nerves: EOM's Intact: Normal, Facial Sensation: Normal Sensory exam: Upper Extremity Light Touch: Normal, Lower Extremity Light Touch: Normal Motor strength exam: RUE: 5, LUE: 5, RLE: 5, LLE: 5 Eye Response: (4) open spontaneously Motor Response: (6) obeys commands Verbal Response: (5) oriented Psychiatric exam: Present: normal affect, normal mood Skin exam: Present: normal color Course Vital Signs 09/27/23 16:35 Temperature 97.4 F L Pulse Rate 75 Respiratory 18 Rate Blood Pressure 151/87 O2 Sat by Pulse 96 Oximetry Medical Decision Making - Medical Decision Making Was pt. sent in by a medical professional or institution (, PA, CONDENSER SETTER, urgent care, hospital, or [place] facility...) When possible be specific @ -No Did you speak to anyone other than the patient for history (EMS, parent, family, police, friend...)? What history was obtained from this source @ - is present and helps provide history including onset of symptoms Did you review nursing and triage notes (agree or disagree)? Why? @ -I reviewed and agree with nursing and triage notes Were old charts reviewed (outside hosp., previous admission, EMS record, old EKG, old radiological studies, urgent care reports/EKG's, [place] health care facility records)? Report findings @ -No old charts were reviewed Differential Diagnosis (chest pain, altered mental status, abdominal pain women, abdominal pain men, vaginal bleeding, weakness, fever, dyspnea, syncope, headache, dizziness, GI bleed, back pain, seizure, CVA, palpatations, mental health, musculoskeletal)? @ -Differential Dizziness: Benign paroxysmal positional Vertigo, Menieres disease, otitis media, acoustic neuroma, vertebrobasilar insufficiency, cerebellar stroke, encephalitis, hypovolemic, arrhythmia, coronary artery syndrome, anemia, this is not meant to be an all-inclusive list EKG interpreted by me (3pts min.). @ -As above X-rays interpreted by me (1pt min.). @ -None done CT interpreted by me (1pt min.). @ -None done U/S interpreted by me (1pt. min.). @ -None done What testing was considered but not performed or refused? (CT, X-rays, U/S, labs)? Why? @ -Considered imaging however patient has no neurological symptoms. Patient only on aspirin. No serious mechanism of injury. What meds were considered but not given or refused? Why? @ -None Did you discuss the management of the patient with other professionals (pr ofessionals i.e. , PA, CONDENSER SETTER, lab, RT, psych nurse, psychiatric social worker, foot press operator, teacher, public information officer, transplant case manager)? Give summary @ -No Was smoking cessation discussed for >3mins.? @ -No Was critical care preformed (if so, how long)? @ -No Were there social determinants of health that impacted care today? How? (Homelessness, low income, unemployed, alcoholism, drug addiction, transportation, low edu. Level, literacy, decrease access to med. care, alf, rehab)? @ -No Was there de-escalation of care discussed even if they declined (Discuss DNR or withdrawal of care, Hospice)? DNR status @ -No What co-morbidities impacted this encounter? (DM, HTN, Smoking, COPD, CAD, Cancer, CVA, ARF, Chemo, Hep., AIDS, mental health diagnosis, sleep apnea, morbid obesity)? @ -None Was patient admitted / discharged? Hospital course, mention meds given and route, prescriptions, significant lab abnormalities, going to OR and other pertinent info. @ -Patient and family are updated on plan. Patient does not need sutures. Patient can be discharged with wound care Undiagnosed new problem with uncertain prognosis? @ -No Drug Therapy requiring intensive monitoring for toxicity (Heparin, Nitro, Insulin, Cardizem)? @ -No Were any procedures done? @ -No Diagnosis/symptom? @ -Minor head injury, forehead abrasion Acute, or Chronic, or Acute on Chronic? @ -Acute, acute Uncomplicated (without systemic symptoms) or Complicated (systemic symptoms)? @ -Default Side effects of treatment? @ -No Exacerbation, Progression, or Severe Exacerbation? @ -No Poses a threat to life or bodily function? How? (Chest pain, [place], [place], pneumonia, PE, COPD, DKA, ARF, appy, cholecystitis, CVA, Diverticulitis, Homicidal, Suicidal, threat to staff... and all critical care pts) @ -No Disposition Clinical Impression: Minor head injury Disposition: HOME SELF-CARE Condition: Stable Instructions (If sedation given, give patient instructions): Head Injury (ED), Abrasion (ED) Additional Instructions: Twice daily wash area with soap and water, apply antibiotic ointment, and bandage. Return for change in mental status, confusion, weakness, coordination problems, headache, vomiting, worsening symptoms or other concerns Is patient prescribed a controlled substance at d/c from ED?: No Referrals: Hugh Winters DO [Primary Care Provider] - 1-2 days Time of Disposition: 17:58
[2023-09-27] MEDS: BACITRACIN OINT 1 EACH PACKET TOPICAL ONE (18:35)
[2023-09-27] MEDS: DIPH,PERTUS(ACELL)TETVAC-LF 0.5 ML VIAL IM ONE (18:38)
[2023-09-27 19:14] VITALS: BP 156/90; PULSE 61; RESP 20; TEMP 97.6
== END 2023-09-27 18:46 | disposition home or self-care (01) ==
LOC: EC 16:32
DX: S00.81XA Abrasion of other part of head, initial encounter (principal); Z23 Encounter for immunization; X58.XXXA Exposure to other specified factors, initial encounter
CPT/HCPCS: 90471; 90715; 99283

== ENCOUNTER 2024-02-14 20:52 | Observation (INO) | payer MEDICARE ==
[~2024-02-14 20:52] MED LIST changes: -IODINE/POTASS IOD (LUGOLS) BOTTLE TOPICAL ONE; +SODIUM CHLORIDE 0.9% 1,000 ML BAG ONE
[2024-02-14] MEDS ORDERED: ATORVASTATIN 40 MG TAB ONE (21:10)
[2024-02-15] MEDS ORDERED: PRIMIDONE 50 MG TAB ONE (09:39)
[2024-02-15] MEDS ORDERED: ASPIRIN 81 MG ONE (09:39)
[2024-02-15] MEDS ORDERED: AMIODARONE 200 MG TAB ONE (09:40)
[2024-02-15] MEDS ORDERED: amLODIPine 2.5 MG TAB ONE (09:40)
[2024-02-15] MEDS ORDERED: CARBIDOPA-LEVODOPA 25-100 MG 1 EACH TAB ONE ×3 (12:40→22:36)
[2024-02-15] MEDS ORDERED: ENOXAPARIN 40 MG/0.4 ML SYRINGE SQ ONE (14:50)
[2024-02-15] MEDS ORDERED: ATORVASTATIN 40 MG TAB ONE (22:36)
[2024-02-15] MEDS ORDERED: DONEPEZIL 10 MG TAB ONE (22:36)
[2024-02-16] MEDS ORDERED: CARBIDOPA-LEVODOPA 25-100 MG 1 EACH TAB ONE ×3 (09:04→22:28)
[2024-02-16] MEDS ORDERED: ASPIRIN 81 MG ONE (09:04)
[2024-02-16] MEDS ORDERED: PRIMIDONE 50 MG TAB ONE (09:04)
[2024-02-16] MEDS ORDERED: ENOXAPARIN 40 MG/0.4 ML SYRINGE SQ ONE (09:04)
[2024-02-16] MEDS ORDERED: ZINC SULFATE 220 MG CAP ONE (09:04)
[2024-02-16] MEDS ORDERED: amLODIPine 2.5 MG TAB ONE (09:04)
[2024-02-16] MEDS ORDERED: ASCORBIC ACID 500 MG TAB ONE (09:04)
[2024-02-16] MEDS ORDERED: DONEPEZIL 10 MG TAB ONE (22:27)
[2024-02-16] MEDS ORDERED: ATORVASTATIN 40 MG TAB ONE (22:27)
[2024-02-17] MEDS ORDERED: ZINC SULFATE 220 MG CAP ONE (09:46)
[2024-02-17] MEDS ORDERED: ASPIRIN 81 MG ONE (09:46)
[2024-02-17] MEDS ORDERED: PRIMIDONE 50 MG TAB ONE (09:46)
[2024-02-17] MEDS ORDERED: CARBIDOPA-LEVODOPA 25-100 MG 1 EACH TAB ONE (09:46)
[2024-02-17] MEDS ORDERED: ASCORBIC ACID 500 MG TAB ONE (09:46)
[2024-02-17] MEDS ORDERED: ENOXAPARIN 40 MG/0.4 ML SYRINGE SQ ONE (09:47)
[2024-02-17] MEDS ORDERED: amLODIPine 2.5 MG TAB ONE (09:47)
--- NOTE | 2024-03-19 14:20 | XR ---
Patient Mak Venegas A ID [id number] Order # Procedure XR CHEST 2 VW EXAMINATION TYPE: XR chest 2V DATE OF EXAM: 02/15/2024 8:16 AM CLINICAL INDICATION: WEAKNESS & COVID COMPARISON: THIS EXAM WAS READ DURING PACS DOWNTIME, NO PRIORS AVAILABLE. TECHNIQUE: XR chest 2V Frontal view of the chest. FINDINGS: Lungs/Pleura: Scattered subtle reticular and hazy opacities. No evidence of pneumothorax, focal conso lidation or pleural effusion. Pulmonary vascularity: Unremarkable. Heart/mediastinum: Cardiomediastinal silhouette is unremarkable. Musculoskeletal: No acute osseous pathology. IMPRESSION: Subtle scattered opacities which may represent an atypical pneumonia.
--- NOTE | 2024-03-28 14:40 | PN ---
Date of service is 02/15/2024 PROGRESS NOTE LOCATION: [facility]. REASON FOR FOLLOWUP: COVID-19. INTERVAL HISTORY: The patient is afebrile. The patient is more awake and alert. He is up in the chair. He is breathing comfortably. He did have a cough but not bringing up any sputum. No chest pain. No nausea. No vomiting. No abdominal pain. No diarrhea. PHYSICAL EXAMINATION: VITAL SIGNS: His blood pressure 170/80 with a pulse of 58, temperature of 98. He is 92% on room air. GENERAL DESCRIPTION: This is an elderly male, up in the chair, in no distress. RESPIRATORY SYSTEM: Unlabored breathing, decreased intensity of breath sounds. No wheeze. HEART: S1, S2. Regular rate and rhythm. ABDOMEN: Soft. No tenderness. LABORATORY DATA: The patient did have a chest x-ray with some opacities. No focal consolidation. DIAGNOSTIC IMPRESSION AND PLAN: The patient with COVID-19, and this patient seems to have responded to the symptomatic and supportive treatment. The patient is currently afebrile and not requiring supplemental oxygen and will not qualify for remdesivir. Continue with supportive treatment with Lovenox, zinc, ascorbic acid, and monitor clinical course closely. Family at the bedside. Questions and concerns were answered. MMODL / IJN: [id number] / ANSELMO
--- NOTE | 2024-03-29 09:00 | PN ---
Date of service is 02/16/2024 PROGRESS NOTE REASON FOR FOLLOWUP: COVID-19 infection. INTERVAL HISTORY: The patient is afebrile. The patient is currently breathing comfortably on room air. Denies any chest pain or shortness of breath. He did have a cough which is dry in nature. No nausea, or vomiting. No abdominal pain or diarrhea. PHYSICAL EXAMINATION: VITAL SIGNS: Blood pressure is 113/63, pulse of 82, temperature 98.8. He is 95% on room air. GENERAL DESCRIPTION: This is an elderly male up in the chair, in no distress. RESPIRATORY SYSTEM: Unlabored breathing, decreased intensity of breath sounds. No wheeze. HEART: S1, S2. Regular rate and rhythm. ABDOMEN: Soft. No tenderness. LABORATORY DATA: White count 6.29, creatinine 0.3. DIAGNOSTIC IMPRESSION AND PLAN: The patient with COVID-19 infection. This patient seems to be slowly clinically responding to the current supportive treatment. We will continue along with Lovenox, zinc, and ascorbic acid and monitor clinical course closely. MMODL / IJN: [id number] / MTDD
--- NOTE | 2024-03-29 09:34 | CONS ---
Date of service is 02/14/2024 CONSULTATION REASON FOR CONSULTATION: COVID-19. HISTORY OF PRESENT ILLNESS: The patient is a 78-year-old male with multiple comorbidities including hypertension, hyperlipidemia, dementia, Parkinson disease. The patient has been brought into the hospital for evaluation of weakness, unable to care for himself. Apparently, the tested positive for COVID-19, and the patient also tested positive yesterday for COVID-19. They have been complaining of generalized debility, weakness. He did have a cough, mild to moderate in intensity, but not bringing up any sputum. Denies any pleuritic chest pain. No nausea. No vomiting. No choking on the food. No abdominal pain. No diarrhea. The patient is not a very good historian, so most of the information has been to be extracted from review of the chart and talking to nursing staff. REVIEW OF SYSTEMS: Positive points have been mentioned in HPI. Rest of systems are negative. PAST MEDICAL HISTORY: Mentioned above. PAST SURGICAL HISTORY: Reviewed. SOCIAL HISTORY: Reviewed. FAMILY HISTORY: Reviewed. MEDICATIONS: The patient is currently on, 1. Aricept. 2. Crestor. 3. Amiodarone. 4. Norvasc. 5. Aspirin. 6. Mysoline. 7. Carbidopa/levodopa. PHYSICAL EXAMINATION: VITAL SIGNS: Blood pressure 141/82 with a pulse of 70, temperature of 98.5, he is 95% on room air. GENERAL DESCRIPTION: This is an elderly male, lying in bed, in no distress. No tachypnea or accessory muscle of respiration use. HEENT: No pallor or scleral icterus. Oral mucous membranes are dry. NECK: Trachea is central. No thyromegaly. LUNGS: Unlabored breathing. Decreased intensity of breath sounds. No wheeze. HEART: S1, S2. Regular rate and rhythm. ABDOMEN: Soft, no tenderness. No guarding or rigidity. EXTREMITIES: No edema in the feet. SKIN: No rashes. No masses palpable. NEUROLOGICAL: The patient is lethargic, but arousable. Orientation could not be determined. No agitation has been noticed. LABORATORY DATA: The patient tested positive for COVID-19. Chest x-ray has been done. Report is currently pending. The patient did have a hemoglobin of 14.6, white count of 9.54. DIAGNOSTIC IMPRESSION AND PLAN: 1. The patient presented to hospital with generalized weakness which is likely multifactorial, and this patient has been tested positive for COVID-19 and possible component of dehydration, unable to take care of himself. The patient is currently not hypoxic. No need for supplemental oxygen. We are waiting for the chest x-ray. If no acute infiltrate, treatment will be mostly supportive. 2. The patient advised zinc, ascorbic acid, and Lovenox. No need for steroid or remdesivir at this point. 3. Droplet isolation. Thank you for this consultation. We will follow this patient along with you. MMODL / IJN: [id number] / ANSELMO
== END 2024-02-17 10:55 | disposition home or self-care (01) ==
LOC: 1SOBS 20:52 → INTOOBSV 20:52 → UNDODISIN 02-17 10:38
PROVIDERS: ADMIT Internal Medicine; ATTEND Internal Medicine
DX: U07.1 COVID-19 (principal); G92.8 Other toxic encephalopathy; G20.A1 Parkinson's disease without dyskinesia, without mention of fluctuations; I10 Essential (primary) hypertension; E78.5 Hyperlipidemia, unspecified; F03.90 Unspecified dementia, unspecified severity, without behavioral disturbance, psychotic disturbance, mood disturbance, and anxiety; Z74.01 Bed confinement status; Z79.82 Long term (current) use of aspirin; Z79.899 Other long term (current) drug therapy
CPT/HCPCS: 71046; 96360; 99285

== ENCOUNTER → 2024-11-14 | Outpatient (CLI) | payer MEDICARE ==
[2024-11-14 21:21] LABS: ALT 12 U/L (10-49); AST 24 U/L (14-35); Albumin 4.1 g/dL (3.8-4.9); Albumin/Globulin Ratio 1.71 Ratio (1.60-3.17); Alkaline Phosphatase 122 U/L (41-126); BUN/Creat Ratio 13.78 Ratio (12.00-20.00); Basophils # (A) 0.05 X 10*3/uL (0.00-0.10); Basophils % (A) 0.4 %; Blood Urea Nitrogen 12.4 mg/dL (9.0-27.0); Calcium 9.2 mg/dL (8.7-10.3); Carbon Dioxide 21.5 mmol/L (21.6-31.8); Chloride 111 mmol/L (96-109); Chol/HDL Ratio 3.04 Ratio; Eosinophils % (A) 2.5 %; Globulin 2.4 g/dL (1.6-3.3); Glucose 107 mg/dL (70-110); HGB 15.9 g/dL (13.0-17.0); LDL Cholesterol,Calculated 59.1 mg/dL (0.0-131.0); Lymphocytes # (A) 1.48 X 10*3/uL (0.90-5.00); Lymphocytes % (A) 12.3 %; MCH 30.2 pg (27.0-32.0); MCHC 32.4 g/dL (32.0-37.0); Mean Platelet Volume 13.2 FL (9.5-12.2); Monocytes # (A) 0.79 X 10*3/uL (0.20-1.00); Monocytes % (A) 6.6 %; NRBC Per 100 WBC 0 X 10*3/uL (0.00-0.01); Neutrophils # (A) 9.34 X 10*3/uL (1.80-7.70); Neutrophils % (A) 77.9 %; Platelet Count 204 X 10*3/uL (140-440); Potassium 4.1 mmol/L (3.5-5.5); Prostate Specific Antigen 3.12 ng/mL (0.000-6.500); RBC 5.27 X 10*6/uL (4.40-5.60); Sodium 145 mmol/L (135-145); Total Bilirubin 0.6 mg/dL (0.3-1.2); Total Protein 6.5 g/dL (6.2-8.2); VLDL Calculation 18.14 mg/dL (5.00-40.00)
== END | disposition home or self-care (01) ==
LOC: LABWHC1 14:01
PROVIDERS: ATTEND Family Medicine
DX: E78.5 Hyperlipidemia, unspecified (principal); E66.9 Obesity, unspecified; N40.0 Benign prostatic hyperplasia without lower urinary tract symptoms
CPT/HCPCS: 36415; 80053; 80061; 82306; 83036; 84153; 84443; 85025

== ENCOUNTER 2024-12-30 19:21 | Inpatient (IN) | payer MEDICARE ==
--- NOTE | 2024-12-30 19:49 | ED ---
Male Urogenital HPI - General Source: patient, family Mode of arrival: wheelchair Limitations: physical limitation <Tyrone Jones - Last Filed: 12/30/24 19:49> - General Source: patient, family, RN notes reviewed, old records reviewed, Caregiver Mode of arrival: wheelchair Limitations: physical limitation - History of Present Illness MD Complaint: other Location: penis, abdomen Radiation: none Severity: mild Severity scale (1-10): 2 Consistency: constant Improves with: none Worsens with: none Reports: urinary retention <Ryan Schumacher - Last Filed: 12/31/24 20:30> - General Chief complaint: Urogenital Stated complaint: Urogenital issues Time Seen by Provider: 12/30/24 19:49 - History of Present Illness Initial comments: 79-year-old male brought in by his with concerns for urinary tract infection. Patient's states he was having very cloudy urine so she brought him to urgent care. Their insurance would not cover labs performed by the laboratory they use and they were instructed to bring him here. denies any fevers. Patient does have history of dementia but states he does not seem to be more confused than usual. (Tyrone Jones) This is an 79 mal eto the ED unable to provide history with complaints of being unable to urinate, came from urgent care (Ryan Schumacher) - Related Data Home Medications Medication Instructions Recorded Confirmed Finasteride [Proscar] 5 mg PO DAILY 11/25/14 12/31/24 Amiodarone [Cordarone] 100 mg PO SUWESA 12/21/17 12/31/24 Carbidopa-Levodopa 25-100 mg 2 tab PO TID 08/28/18 12/31/24 [Sinemet 25-100 mg] Donepezil HCl [Aricept] 20 mg PO HS 08/28/18 12/31/24 Rosuvastatin [Crestor] 20 mg PO HS 06/17/21 12/31/24 Cholecalciferol [Vitamin D3 (25 25 mcg PO DAILY 12/31/24 12/31/24 Mcg = 1000 Iu)] Multivitamins, Thera [Multivitamin 1 tab PO DAILY 12/31/24 12/31/24 (formulary)] Vit C/E/Zn/Coppr/Lutein/Zeaxan 1 cap PO BID 12/31/24 12/31/24 [Preservision Areds 2 Softgel] amLODIPine [Norvasc] 2.5 mg PO DAILY 12/31/24 12/31/24 cefuroxime axetiL [Ceftin] 500 mg PO DIRECTED 12/31/24 12/31/24 Previous Rx's Medication Instructions Recorded Aspirin 81 mg PO DAILY tab 12/07/21 Allergies Allergy/AdvReac Type Severity Reaction Status Date / Time No Known Allergies Allergy Verified 12/31/24 10:39 Review of Systems ROS Other: All systems not noted in ROS Statement are negative. <Tyrone Jones - Last Filed: 12/30/24 19:49> ROS Other: All systems not noted in ROS Statement are negative. <Ryan Schumacher - Last Filed: 12/31/24 20:30> ROS Statement: Those systems with pertinent positive or pertinent negative responses have been documented in the HPI. Past Medical History Past Medical History: Atrial Fibrillation, CVA/TIA, Dementia, Hearing Disorder / Deafness, Hyperlipidemia, Hypertension, Thyroid Disorder Additional Past Medical History / Comment(s): very SAM[place], unsteady on feet, Parkinson's History of Any Multi-Drug Resistant Organisms: None Reported Past Surgical History: Hernia Repair, Orthopedic Surgery Additional Past Surgical History / Comment(s): Right femur surgery, thyroid biopsy, left cataract Past Anesthesia/Blood Transfusion Reactions: No Reported Reaction Past Psychological History: No Psychological Hx Reported Smoking Status: Never smoker Past Alcohol Use History: None Reported Past Drug Use History: None Reported - Past Family History Mother Family Medical History: Cancer <Tyrone Jones - Last Filed: 12/30/24 19:49> General Exam Limitations: physical limitation <Tyrone Jones - Last Filed: 12/30/24 19:49> General appearance: alert, in no apparent distress Head exam: Present: atraumatic, normocephalic, normal inspection Eye exam: Present: normal appearance, PERRL, EOMI. Absent: scleral icterus, conjunctival injection, periorbital swelling ENT exam: Present: normal exam, mucous membranes moist Neck exam: Present: normal inspection. Absent: tenderness, meningismus, lymphadenopathy Respiratory exam: Present: normal lung sounds bilaterally. Absent: respiratory distress, wheezes, rales, rhonchi, stridor Cardiovascular Exam: Present: regular rate, normal rhythm, normal heart sounds. Absent: systolic murmur, diastolic murmur, rubs, gallop, clicks GI/Abdominal exam: Present: soft, normal bowel sounds. Absent: distended, tenderness, guarding, rebound, rigid Extremities exam: Present: normal inspection, full ROM, normal capillary refill. Absent: tenderness, pedal edema, joint swelling, calf tenderness Back exam: Present: normal inspection Neurological exam: Present: alert, oriented X3, CN II-XII intact Psychiatric exam: Present: normal affect, normal mood Skin exam: Present: warm, dry, intact, normal color. Absent: rash <Ryan Schumacher - Last Filed: 12/31/24 20:30> - General Exam Comments Initial Comments: Visual Physical Exam Vital signs reviewed General: Well-appearing, nontoxic, no acute distress. Head: Normocephalic, atraumatic Eyes: PERRLA, EOMI ENT: Airway patent Chest: Nonlabored breathing Skin: No visual rash, normal skin tone Neuro: At baseline mentation, history of dementia Musculoskeletal: No gross abnormalities (Tyrone Jones) Course <Ryan Schumacher - Last Filed: 12/31/24 20:30> Vital Signs 12/30/24 12/31/24 12/31/24 19:33 02:06 06:03 Temperature 97.8 F Pulse Rate 77 60 66 Respiratory 18 18 15 Rate Blood Pressure 144/77 168/94 157/84 Blood Pressure [Right Arm] O2 Sat by Pulse 95 96 96 Oximetry 12/31/24 12:40 Temperature Pulse Rate Respiratory Rate Blood Pressure Blood Pressure 139/82 [Right Arm] O2 Sat by Pulse Oximetry - Reevaluation(s) Reevaluation #1: 12/31/24 01:28 medical record is reviewed (Ryan Schumacher) Reevaluation #2: 12/31/24 01:29 pateint with no complaints (Ryan Schumacher) Reevaluation #3: 12/31/24 01:29 patient informed of results and questions answered (Ryan Schumacher) Reevaluation #4: Was pt. sent in by a medical professional or institution (, PA, CIRCUIT BREAKER ASSEMBLER, urgent care, hospital, or long term...) When possible be specific @ -no Did you speak to anyone other than the patient for history (EMS, parent, family, police, friend...)? What history was obtained from this source @ -no Did you review nursing and triage notes (agree or disagree)? Why? @ -agree Are old charts reviewed (outside hosp., previous admission, EMS record, old EKG, old radiological studies, urgent care reports/EKG's, long term records)? Report findings @ -yes Differential Diagnosis (chest pain, altered mental status, abdominal pain women, abdominal pain men, vaginal bleeding, weakness, fever, dyspnea, syncope, headache, dizziness, GI bleed, back pain, seizure, CVA, palpatations, mental health, musculoskeletal)? @ -prior EKG interpreted by me (3pts min.). @ -no X-rays interpreted by me (1pt min.). @ -no CT interpreted by me (1pt min.). @ -no U/S interpreted by me (1pt. min.). @ -no What testing was considered but not performed or refused? (CT, X-rays, U/S, labs)? Why? @ -none What meds were considered but not given or refused? Why? @ -none Did you discuss the management of the patient with other professionals (professionals i.e. , PA, CIRCUIT BREAKER ASSEMBLER, lab, RT, psych nurse, social media strategist, courier delivery driver, teacher, dental officer, nurse outreach case manager)? Give summary @ -no Was smoking cessation discussed for >3mins.? @ -no Was critical care preformed (if so, how long)? @ -no Were there social determinants of health that impacted care today? How? (Homelessness, low income, unemployed, alcoholism, drug addiction, transportation, low edu. Level, literacy, decrease access to med. care, half-way, rehab)? @ -none Was there de-escalation of care discussed even if they declined (Discuss DNR or withdrawal of care, Hospice)? DNR status @ -no What co-morbidities impacted this encounter? (DM, HTN, Smoking, COPD, CAD, Cancer, CVA, ARF, Chemo, Hep., AIDS, mental health diagnosis, sleep apnea, morbid obesity)? @ -none Was patient admitted / discharged? Hospital course, mention meds given and route, prescriptions, significant lab abnormalities, going to OR and other pertinent info. @ -79 male presents with urinary retention significant urinary tract infection, patient admitted for IV antibiotics Admitted Undiagnosed new problem with uncertain prognosis? @ -no Drug Therapy requiring intensive monitoring for toxicity (Heparin, Nitro, Insulin, Cardizem)? @ -no Were any procedures done? @ -no Diagnosis/symptom? @ -Urinary retention UTI Acute, or Chronic, or Acute on Chronic? @ -Acute Uncomplicated (without systemic symptoms) or Complicated (systemic symptoms)? @ -Complicated Side effects of treatment? @ -no Exacerbation, Progression, or Severe Exacerbation? @ -exacerbation Poses a threat to life or bodily function? How? (Chest pain, [place], [place], pneumonia, PE, COPD, DKA, ARF, appy, cholecystitis, CVA, Diverticulitis, Homicidal, Suicidal, threat to staff... and all critical care pts) @ -yes extremes of (Ryan Schumacher) - Consultations Consultation #1: spoke w [facility] who will admit the patient (Ryan Schumacher) Medical Decision Making - Lab Data Result diagrams: 12/30/24 23:05 12/31/24 02:30 <Ryan Schumacher - Last Filed: 12/31/24 20:30> - Medical Decision Making 79 male to the ED for urinay retention with purulent UTI will admit for IV abx and hydration (Ryan Schumacher) - Lab Data Lab Results 12/30/24 12/30/24 12/30/24 Range/Units 19:40 23:05 23:05 WBC 12.13 H (4.50-10.00) 10*3/uL RBC 5.21 (4.40-5.60) 10*6/uL Hgb 15.9 (13.0-17.0) g/dL Hct 49.0 (39.6-50.0) % MCV 94.0 (80.0-97.0) fL MCH 30.5 (27.0-32.0) pg MCHC 32.4 (32.0-37.0) g/dL Plt Count 260 (140-440) 10*3/uL MPV 12.4 H (9.5-12.2) fL Immature Gran % (Auto) 0.2 % Neutrophils % 72.9 % Lymphocytes % 15.4 % Monocytes % 8.7 % Eosinophils % 2.1 % Basophils % 0.7 % Immature Gran # 0.03 (0.00-0.04) 10*3/uL Neutrophils # 8.82 H (1.80-7.70) 10*3/uL Lymphocytes # 1.87 (0.90-5.00) 10*3/uL Monocytes # 1.06 H (0.20-1.00) 10*3/uL Eosinophils # 0.26 (0.04-0.35) 10*3/uL Basophils # 0.09 (0.00-0.10) 10*3/uL Lactic Ac Sepsis Rflx Plasma Lactic Acid Soren 2.1 H* (0.7-2.0) mmol/L Urine Color Yellow Urine Appearance Turbid (Clear) Urine pH 6.0 (5.0-8.0) Ur Specific [place] 1.015 (1.001-1.035) Urine Protein 2+ H (Negative) Urine Glucose (UA) Negative (Negative) Urine Ketones Negative (Negative) Urine Blood Moderate H (Negative) Urine Nitrite Negative (Negative) Urine Bilirubin Negative (Negative) Urine Urobilinogen <2.0 (<2.0) mg/dL Ur Leukocyte Esterase Large H (Negative) Urine RBC >182 H (0-5) /hpf Urine WBC >182 H (0-5) /hpf 12/31/24 Range/Units 00:03 WBC (4.50-10.00) 10*3/uL RBC (4.40-5.60) 10*6/uL Hgb (13.0-17.0) g/dL Hct (39.6-50.0) % MCV (80.0-97.0) fL MCH (27.0-32.0) pg MCHC (32.0-37.0) g/dL Plt Count (140-440) 10*3/uL MPV (9.5-12.2) fL Immature Gran % (Auto) % Neutrophils % % Lymphocytes % % Monocytes % % Eosinophils % % Basophils % % Immature Gran # (0.00-0.04) 10*3/uL Neutrophils # (1.80-7.70) 10*3/uL Lymphocytes # (0.90-5.00) 10*3/uL Monocytes # (0.20-1.00) 10*3/uL Eosinophils # (0.04-0.35) 10*3/uL Basophils # (0.00-0.10) 10*3/uL Lactic Ac Sepsis Rflx Y Plasma Lactic Acid Soren (0.7-2.0) mmol/L Urine Color Urine Appearance (Clear) Urine pH (5.0-8.0) Ur Specific [place] (1.001-1.035) Urine Protein (Negative) Urine Glucose (UA) (Negative) Urine Ketones (Negative) Urine Blood (Negative) Urine Nitrite (Negative) Urine Bilirubin (Negative) Urine Urobilinogen (<2.0) mg/dL Ur Leukocyte Esterase (Negative) Urine RBC (0-5) /hpf Urine WBC (0-5) /hpf Disposition <Tyrone Jones - Last Filed: 12/30/24 19:49> Is patient prescribed a controlled substance at d/c from ED?: No Time of Disposition: 01:00 <Ryan Schumacher - Last Filed: 12/31/24 20:30> Clinical Impression: Weakness, UTI (urinary tract infection), Urinary retention Disposition: ADMITTED IP TO THIS HOSP Condition: Fair
[2024-12-30 21:08] LABS: Bilirubin,Urine Negative (Negative); Blood,Urine Moderate (Negative); Color,Urine Yellow; Glucose,Urine (UA) Negative (Negative); Ketones,Urine Negative (Negative); Leukocyte Esterase,Urine Large (Negative); Nitrite,Urine Negative (Negative); PH, Urine 6.0 (5.0-8.0); Protein,Urine 2+ (Negative); RBC,Urine >182 /hpf (0-5); Urobilinogen,Urine <2.0 mg/dL (<2.0); WBC,Urine >182 /hpf (0-5)
[2024-12-30 21:12] LABS: Specific Gravity,Urine 1.015 (1.001-1.035)
[2024-12-30 23:27] LABS: Basophils # (A) 0.09 10*3/uL (0.00-0.10); Basophils % (A) 0.7 %; Eosinophils # (A) 0.26 10*3/uL (0.04-0.35); Eosinophils % (A) 2.1 %; HCT 49.0 % (39.6-50.0); HGB 15.9 g/dL (13.0-17.0); Lymphocytes # (A) 1.87 10*3/uL (0.90-5.00); Lymphocytes % (A) 15.4 %; MCH 30.5 pg (27.0-32.0); MCHC 32.4 g/dL (32.0-37.0); MCV 94.0 fL (80.0-97.0); Monocytes # (A) 1.06 10*3/uL (0.20-1.00); Monocytes % (A) 8.7 %; Neutrophils # (A) 8.82 10*3/uL (1.80-7.70); Neutrophils % (A) 72.9 %; Platelet Count 260 10*3/uL (140-440); RBC 5.21 10*6/uL (4.40-5.60); RDW 13.2 % (11.5-14.5); WBC 12.13 10*3/uL (4.50-10.00)
[2024-12-31] MEDS ORDERED: ONDANSETRON 4 MG/2 ML VIAL IVP PRN (01:26)
[2024-12-31] MEDS ORDERED: MORPHINE SULFATE 4 MG/ML SYRINGE IV PRN (01:26)
[2024-12-31] MEDS ORDERED: NALOXONE 0.4 MG/ML 1 ML VIAL IV PRN (01:26)
[2024-12-31] MEDS: SODIUM CHLORIDE 0.9% 1,000 ML IV SCH (02:47)
[2024-12-31 02:54] LABS: ALT 28 U/L (4-49); AST 26 U/L (17-59); African American GFR (CKD) 78 (>60 ml/min/1.73 sqM); Albumin 3.8 g/dL (3.5-5.0); Alkaline Phosphatase 111 U/L (38-126); Anion Gap 11 mmol/L; Blood Urea Nitrogen 18 mg/dL (9-20); Calcium 9.3 mg/dL (8.4-10.2); Carbon Dioxide 24 mmol/L (22-30); Chloride 107 mmol/L (98-107); Glucose 87 mg/dL (74-99); Non-African American GFR(CKD) 68 (>60 ml/min/1.73 sqM); Potassium 4.4 mmol/L (3.5-5.1); Sodium 142 mmol/L (137-145); Total Protein 6.3 g/dL (6.3-8.2)
[2024-12-31] MEDS: PANTOPRAZOLE 40 MG/10 ML VIAL IV SCH (08:51)
--- NOTE | 2024-12-31 14:37 | US ---
EXAMINATION TYPE: US kidneys/renal and bladder DATE OF EXAM: 12/31/2024 COMPARISON: NONE CLINICAL INDICATION: Male, 79 years old with history of UTI; TECHNIQUE: Grayscale imaging of the bilateral kidneys and urinary bladder: FINDINGS: EXAM MEASUREMENTS: Right Kidney: 10.5x4.5x5.0 cm Left Kidney: 9.9x5.1x5.2 cm slightly limited exam due to overlying gas Right Kidney: Anechoic area seen: 1.2x1.1x1.4cm Left Kidney: Anechoic area seen: 3.6x2.9x2.9cm Bladder: pt had cath IF: Anechoic area seen within Lt lobe of liver: 1.3x1.0x1.2cm IMPRESSION: Renal cystic changes. Cyst within the left hepatic lobe. [facility], , 12/31/2024 2:35 PM
--- NOTE | 2024-12-31 18:41 | P.HPIM ---
History of Present Illness H&P Date: 12/31/24 Chief Complaint: Difficulty with urination History of present illness; 79-year-old male with a past medical history of atrial fibrillation (on Lovenox at home), hypertension, hyperlipidemia, deafness presents with complaints of urinary retention and dysuria. Patient is a poor historian per the ER note patient was brought in by his for concerns of UTI. had stated that their insurance would not cover laboratory testing at the urgent care so were instructed to come here for further evaluation. In the ED patient underwent lab work which was significant for a white count of 12.13, neutrophils 8.82, plasma lactate 2.1 which then down trended to 1.6, and the UA was significant for large leukocyte esterase greater than 182 RBC and WBC, 2+ protein, and moderate blood. At this point patient was admitted and started on Rocephin 2 g daily as well as NS 130 cc/h. REVIEW OF SYSTEMS: As stated above in HPI. The rest of the 14-point review of systems is negative. PHYSICAL EXAMINATION: GENERAL: The patient is alert and oriented x3, not in any acute distress. Well developed, well nourished. HEENT: Pupils are round and equally reacting to light. EOMI. No scleral icterus. No conjunctival pallor. Normocephalic, atraumatic. CARDIOVASCULAR: S1 and S2 present. No murmurs, rubs, or gallops. PULMONARY: Chest is clear to auscultation b/l, no wheezing or crackles. ABDOMEN: Soft, nontender, nondistended, normoactive bowel sounds. No palpable organomegaly. Some mild suprapubic tenderness appreciated on palpation. MUSCULOSKELETAL: No joint swelling or deformity. EXTREMITIES: No cyanosis, clubbing, or pedal edema. NEUROLOGICAL: Gross neurological examination did not reveal any focal deficits. SKIN: No rashes. Assessment and Plan UTI: - Blood culture and urine culture ordered - Continue Rocephin 2 g daily - Continue NS 130 cc/h - Urinary catheter in place, urine output adequate - Ultrasound of bladder and kidney showed renal cystic changes with a cyst within the left hepatic lobe otherwise no other abnormalities appreciated #Hypertension #Atrial fibrillation #Hyperlipidemia - Continue home medications F: NS 130 cc/h E: None N: Regular diet DVT ppx: SCDs GI ppx: Protonix 40 mg IV daily CODE STATUS: Full code Dispo: Pending clinical course Elizabeth Daniel MD PGY-2 FM Dictation was produced using [employer] dictation software. please excuse any grammatical, word or spelling errors. Attestation I have seen and examined this patient with my resident , discussed the same with the resident/CINDY, and agree with the dictator's assessment and plan as written Dr. Damon fernandez Past Medical History Past Medical History: Atrial Fibrillation, CVA/TIA, Dementia, Hearing Disorder / Deafness, Hyperlipidemia, Hypertension, Thyroid Disorder Additional Past Medical History / Comment(s): very CROW, unsteady on feet, Parkinson's History of Any Multi-Drug Resistant Organisms: None Reported Past Surgical History: Hernia Repair, Orthopedic Surgery Additional Past Surgical History / Comment(s): Right femur surgery, thyroid biopsy, left cataract Past Anesthesia/Blood Transfusion Reactions: No Reported Reaction Past Psychological History: No Psychological Hx Reported Smoking Status: Never smoker Past Alcohol Use History: None Reported Past Drug Use History: None Reported - Past Family History Mother Family Medical History: Cancer Medications and Allergies Home Medications Medication Instructions Recorded Confirmed Type Finasteride [Proscar] 5 mg PO DAILY 11/25/14 12/31/24 History Amiodarone [Cordarone] 100 mg PO SUWESA 12/21/17 12/31/24 History Carbidopa-Levodopa 25-100 mg 2 tab PO TID 08/28/18 12/31/24 History [Sinemet 25-100 mg] Donepezil HCl [Aricept] 20 mg PO HS 08/28/18 12/31/24 History Rosuvastatin [Crestor] 20 mg PO HS 06/17/21 12/31/24 History Aspirin 81 mg PO DAILY tab 12/07/21 12/31/24 Rx Cholecalciferol [Vitamin D3 (25 25 mcg PO DAILY 12/31/24 12/31/24 History Mcg = 1000 Iu)] Multivitamins, Thera [Multivitamin 1 tab PO DAILY 12/31/24 12/31/24 History (formulary)] Vit C/E/Zn/Coppr/Lutein/Zeaxan 1 cap PO BID 12/31/24 12/31/24 History [Preservision Areds 2 Softgel] amLODIPine [Norvasc] 2.5 mg PO DAILY 12/31/24 12/31/24 History cefuroxime axetiL [Ceftin] 500 mg PO DIRECTED 12/31/24 12/31/24 History Allergies Allergy/AdvReac Type Severity Reaction Status Date / Time No Known Allergies Allergy Verified 12/31/24 10:39 Physical Exam Vitals: Vital Signs Temp Pulse Resp BP Pulse Ox 12/31/24 06:03 66 15 157/84 96 12/31/24 02:06 60 18 168/94 96 12/30/24 19:33 97.8 F 77 18 144/77 95 Intake and Output 12/30/24 12/31/24 12/31/24 22:59 06:59 14:59 Output Total 750 Balance -750 Output: Urine 750 Uretheral (Walden) 750 Other: Voiding Method Indwelling Catheter Weight 93.894 kg Results CBC & Chem 7: 01/01/25 05:33 01/01/25 05:33 Labs: Abnormal Lab Results - Last 24 Hours (Table) 12/30/24 12/30/24 12/30/24 Range/Units 19:40 23:05 23:05 WBC 12.13 H (4.50-10.00) 10*3/uL MPV 12.4 H (9.5-12.2) fL Neutrophils # 8.82 H (1.80-7.70) 10*3/uL Monocytes # 1.06 H (0.20-1.00) 10*3/uL Plasma Lactic Acid Soren 2.1 H* (0.7-2.0) mmol/L Urine Protein 2+ H (Negative) Urine Blood Moderate H (Negative) Ur Leukocyte Esterase Large H (Negative) Urine RBC >182 H (0-5) /hpf Urine WBC >182 H (0-5) /hpf
[2024-12-31] MEDS: CARBIDOPA-LEVODOPA 25-100 MG 1 EACH TAB PO SCH (21:21)
[2024-12-31] MEDS: VIT A,C & E-LUTEIN-MINERALS 1 EACH TAB PO SCH (21:21)
[2024-12-31] MEDS: ATORVASTATIN 40 MG TAB PO SCH (21:21)
[2024-12-31] MEDS: DONEPEZIL 10 MG TAB PO SCH (21:21)
--- NOTE | 2025-01-01 07:08 | P.CONS ---
History of Present Illness - Reason for Consult Consult date: 12/31/24 UTI Requesting physician: Damon Bernal - Chief Complaint Cloudy urine and confusion x 1 day - History of Present Illness Patient is a 79-year-old male with a past medical history significant for CVA TIA hypertension hyperlipidemia atrial fibrillation patient has been brought into the hospital concerning for a urinary tract infection and the patient noted to have significantly cloudy urine patient was seen in the urgent care with the patient did have a blood work done and was noticed to have UTI was advised to go to the ER patient noticed to be slightly confused by the and apparently also have difficulty urination for requiring Walden catheter placement in the patient denies having any headache or URI symptoms no chest pain shortness of breath or cough no nausea no vomiting no abdominal pain or diarrhea on presentation to the hospital the patient was afebrile patient was mildly tachycardic but not hypotensive or hypoxic or need for supplemental oxygen patient did have elevated white count 12.13 with a left shift lactic acid was elevated kidney function was normal electrolytes are normal liver enzymes are normal UA has been positive blood and urine culture have been obtained patient did have abdominal bladder ultrasound renal cystic changes did not mention any hydronephrosis patient was started on ceftriaxone infectious disease was consulted for further management of antibiotic therapy Review of Systems Positive point and negatives has been mentioned in the HPI, complete review of systems was performed and all other systems are negative Past Medical History Past Medical History: Atrial Fibrillation, CVA/TIA, Dementia, Hearing Disorder / Deafness, Hyperlipidemia, Hypertension, Thyroid Disorder Additional Past Medical History / Comment(s): very [place], unsteady on feet, Parkinson's History of Any Multi-Drug Resistant Organisms: None Reported Past Surgical History: Hernia Repair, Orthopedic Surgery Additional Past Surgical History / Comment(s): Right femur surgery, thyroid biopsy, left cataract Past Anesthesia/Blood Transfusion Reactions: No Reported Reaction Past Psychological History: No Psychological Hx Reported Smoking Status: Never smoker Past Alcohol Use History: None Reported Past Drug Use History: None Reported - Past Family History Mother Family Medical History: Cancer Medications and Allergies Home Medications Medication Instructions Recorded Confirmed Type Finasteride [Proscar] 5 mg PO DAILY 11/25/14 12/31/24 History Amiodarone [Cordarone] 100 mg PO SUWESA 12/21/17 12/31/24 History Carbidopa-Levodopa 25-100 mg 2 tab PO TID 08/28/18 12/31/24 History [Sinemet 25-100 mg] Donepezil HCl [Aricept] 20 mg PO HS 08/28/18 12/31/24 History Rosuvastatin [Crestor] 20 mg PO HS 06/17/21 12/31/24 History Aspirin 81 mg PO DAILY tab 12/07/21 12/31/24 Rx Cholecalciferol [Vitamin D3 (25 25 mcg PO DAILY 12/31/24 12/31/24 History Mcg = 1000 Iu)] Multivitamins, Thera [Multivitamin 1 tab PO DAILY 12/31/24 12/31/24 History (formulary)] Vit C/E/Zn/Coppr/Lutein/Zeaxan 1 cap PO BID 12/31/24 12/31/24 History [Preservision Areds 2 Softgel] amLODIPine [Norvasc] 2.5 mg PO DAILY 12/31/24 12/31/24 History cefuroxime axetiL [Ceftin] 500 mg PO DIRECTED 12/31/24 12/31/24 History Allergies Allergy/AdvReac Type Severity Reaction Status Date / Time No Known Allergies Allergy Verified 12/31/24 10:39 Physical Exam Vitals: Vital Signs Temp Pulse Resp BP BP Pulse Ox 12/31/24 12:40 139/82 12/31/24 06:03 66 15 157/84 96 12/31/24 02:06 60 18 168/94 96 12/30/24 19:33 97.8 F 77 18 144/77 95 Intake and Output 12/30/24 12/31/24 12/31/24 22:59 06:59 14:59 Output Total 750 Balance -750 Output: Urine 750 Uretheral ([place]) 750 Other: Voiding Method Indwelling Catheter Weight 93.894 kg 93.894 kg GENERAL DESCRIPTION: Elderly male lying in bed, no distress. No tachypnea or accessory muscle of respiration use. HEENT: Shows Pallor , no scleral icterus. Oral mucous membrane is dry. NECK: Trachea central, no thyromegaly. LUNGS: Unlabored breathing. Clear to auscultation anteriorly. No wheeze or cray fishing hand ckle. HEART: S1, S2, regular rate and rhythm. No loud murmur ABDOMEN: Soft, no tenderness , guarding or rigidity, no organomegaly EXTREMITIES: No edema of feet. SKIN: No rash, no masses palpable. NEUROLOGICAL: The patient is awake, alert, , mood and affect normal. Results CBC & Chem 7: 12/30/24 23:05 12/31/24 02:30 Labs: Abnormal Lab Results - Last 24 Hours (Table) 12/30/24 12/30/24 12/30/24 Range/Units 19:40 23:05 23:05 WBC 12.13 H (4.50-10.00) 10*3/uL MPV 12.4 H (9.5-12.2) fL Neutrophils # 8.82 H (1.80-7.70) 10*3/uL Monocytes # 1.06 H (0.20-1.00) 10*3/uL Plasma Lactic Acid Soren 2.1 H* (0.7-2.0) mmol/L Urine Protein 2+ H (Negative) Urine Blood Moderate H (Negative) Ur Leukocyte Esterase Large H (Negative) Urine RBC >182 H (0-5) /hpf Urine WBC >182 H (0-5) /hpf Assessment and Plan (1) UTI (urinary tract infection) Current Visit: Yes Status: Acute Code(s): N39.0 - URINARY TRACT INFECTION, SITE NOT SPECIFIED SNOMED Code(s): 91200580 (2) Leukocytosis Current Visit: Yes Status: Acute Code(s): D72.829 - ELEVATED WHITE BLOOD CELL COUNT, UNSPECIFIED SNOMED Code(s): 268878247 (3) Urinary retention Current Visit: Yes Status: Acute Code(s): R33.9 - RETENTION OF URINE, UNSPECIFIED SNOMED Code(s): 451813979 (4) Weakness Current Visit: Yes Status: Acute Code(s): R53.1 - WEAKNESS SNOMED Code(s): 28498393 Plan: 1patient presented to hospital with weakness cloudy urine did have difficulty urination some confusion/altered mental status noticed by the did have elevated white count meeting criteria for symptomatic UTI likely from enteric gram-negative pathogen ultrasound did not show any hydronephrosis 2-patient will be treated with Rocephin 2 g daily while waiting for the culture to finalize We will follow on clinical condition and cultures to further adjust medication if needed Thank you for this consultation we will follow the patient along with you Dictation was produced using dragon dictation software. please excuse any grammatical, word or spelling errors. Time with Patient: Greater than 30
[2025-01-01 08:29] LABS: Basophils # (A) 0.04 X 10*3/uL (0.00-0.10); Basophils % (A) 0.4 %; Eosinophils # (A) 0.24 X 10*3/uL (0.04-0.35); Eosinophils % (A) 2.2 %; HCT 39.6 % (39.6-50.0); HGB 12.5 g/dL (13.0-17.0); Immature Grans, Automated 0.40 %; Lymphocytes # (A) 1.28 X 10*3/uL (0.90-5.00); Lymphocytes % (A) 11.8 %; MCH 29.6 pg (27.0-32.0); MCHC 31.6 g/dL (32.0-37.0); MCV 93.6 FL (80.0-97.0); Monocytes # (A) 0.87 X 10*3/uL (0.20-1.00); Monocytes % (A) 8.0 %; NRBC Per 100 WBC 0 X 10*3/uL (0.00-0.01); Neutrophils # (A) 8.42 X 10*3/uL (1.80-7.70); Neutrophils % (A) 77.2 %; Platelet Count 213 X 10*3/uL (140-440); RBC 4.23 X 10*6/uL (4.40-5.60); RDW 13.3 % (11.5-14.5); WBC 10.89 X 10*3/uL (4.50-10.00)
[2025-01-01 09:01] LABS: ALT 13 U/L (10-49); AST 19 U/L (14-35); Albumin 3.3 g/dL (3.8-4.9); Albumin/Globulin Ratio 1.74 Ratio (1.60-3.17); Alkaline Phosphatase 98 U/L (41-126); Anion Gap 9.30 mmol/L (4.00-12.00); BUN/Creat Ratio 13.78 Ratio (12.00-20.00); Blood Urea Nitrogen 12.4 mg/dL (9.0-27.0); Calcium 8.3 mg/dL (8.7-10.3); Carbon Dioxide 21.7 mmol/L (21.6-31.8); Chloride 113 mmol/L (96-109); Globulin 1.9 g/dL (1.6-3.3); Glucose 107 mg/dL (70-110); Magnesium 2.0 mg/dL (1.5-2.4); Potassium 4.2 mmol/L (3.5-5.5); Sodium 144 mmol/L (135-145); Total Protein 5.2 g/dL (6.2-8.2)
--- NOTE | 2025-01-01 09:35 | P.PN ---
Subjective Progress Note Date: 01/01/25 79-year-old male with a past medical history of atrial fibrillation (on Lovenox at home), hypertension, hyperlipidemia, deafness presents with complaints of urinary retention and dysuria. Patient is a poor historian per the ER note patient was brought in by his for concerns of UTI. had stated that their insurance would not cover laboratory testing at the urgent care so were instructed to come here for further evaluation. In the ED patient underwent lab work which was significant for a white count of 12.13, neutrophils 8.82, plasma lactate 2.1 which then down trended to 1.6, and the UA was significant for large leukocyte esterase greater than 182 RBC and WBC, 2+ protein, and moderate blood. At this point patient was admitted and started on Rocephin 2 g daily as well as NS 130 cc/h. 01/01. Patient seen examined.vital signs Stable. WBCs morning is 10.89, hemoglobin 0.5, sodium 144, potassium 4.2. No acute issues overnight REVIEW OF SYSTEMS: CONSTITUTIONAL: No fever, no malaise,. CARDIOVASCULAR: No chest pain, no palpitations, no syncope. PULMONARY: No shortness of breath, no cough, GASTROINTESTINAL: No diarrhea, no nausea, no vomiting, no abdominal pain. NEUROLOGICAL: No headaches, no weakness, PHYSICAL EXAMINATION: GENERAL: The patient is alert and oriented x3, not in any acute distress. Well developed, well nourished. HEENT: Pupils are round and equally reacting to light. EOMI. No scleral icterus. No conjunctival pallor. Normocephalic, atraumatic. No pharyngeal erythema. No thyromegaly. CARDIOVASCULAR: S1 and S2 present. No murmurs, rubs, or gallops. PULMONARY: Chest is clear to auscultation, no wheezing or crackles. ABDOMEN: Soft, nontender, nondistended, normoactive bowel sounds. No palpable organomegaly. MUSCULOSKELETAL: No joint swelling or deformity. EXTREMITIES: No cyanosis, clubbing, or pedal edema. NEUROLOGICAL: Gross neurological examination did not reveal any focal deficits. SKIN: No rashes. Assessment and plan UTI: - Blood culture and urine culture ordered - Continue Rocephin 2 g daily DC fluids - Urinary catheter in place, urine output adequate - Ultrasound of bladder and kidney showed renal cystic changes with a cyst with in the left hepatic lobe otherwise no other abnormalities appreciated ID consulted, recommendations noted #Hypertension #Atrial fibrillation #Hyperlipidemia - Continue home medications Labs and medication were reviewed.. Continue same treatment. Continue with symptomatic treatment. Resume home medication. Monitor labs and vitals. DVT and GI prophylaxis. Further recommendations as per clinical course of the patient Dictation was produced using [employer] dictation software. please excuse any grammatical, word or spelling errors. Objective - Vital Signs Vital signs: Vital Signs Temp 97.9 F 01/01/25 07:05 Pulse 53 L 01/01/25 07:05 Resp 20 01/01/25 07:05 BP 166/76 01/01/25 07:05 Pulse Ox 94 L 01/01/25 07:05 FiO2 Intake & Output 12/31/24 01/01/25 01/01/25 18:59 06:59 18:59 Output Total 550 Balance -550 Weight 93.894 kg Output: Urine 550 Other: Voiding Method Indwelling Catheter - Labs CBC & Chem 7: 01/01/25 05:33 01/01/25 05:33 Labs: Abnormal Lab Results - Last 24 Hours (Table) 01/01/25 01/01/25 Range/Units 05:33 05:33 WBC 10.89 H (4.50-10.00) X 10*3/uL RBC 4.23 L (4.40-5.60) X 10*6/uL Hgb 12.5 L (13.0-17.0) g/dL MCHC 31.6 L (32.0-37.0) g/dL MPV 12.5 H (9.5-12.2) FL Neutrophils # 8.42 H (1.80-7.70) X 10*3/uL Chloride 113 H (96-109) mmol/L Calcium 8.3 L (8.7-10.3) mg/dL Total Protein 5.2 L (6.2-8.2) g/dL Albumin 3.3 L (3.8-4.9) g/dL Microbiology - Last 24 Hours (Table) 12/30/24 23:05 Blood Culture - Preliminary Blood 12/30/24 19:40 Urine Culture - Preliminary Urine,Voided
--- NOTE | 2025-01-01 09:36 | CDI ---
Documentation Clarification Form Date: 01/01/2025 09:19:44 AM From: Lakeisha Gerard RN CCDS Phone: [phone] Admit Date: 12/31/2024 01:27:00 AM Patient Name: Mak Venegas Visit Number: [id number] Discharge Date: ATTENTION: The Clinical Documentation Specialists (CDI) and [facility] Coding Staff appreciate your assistance in clarifying documentation. Please respond to the clarification below the line at the bottom and electronically sign. The CDI & [facility] Coding staff will review the response and follow-up if needed. Please note: Queries are made part of the Legal Health Record. If you have any questions, please contact the author of this message via ITS. Doctor: Cedillo Your patient has the documented symptom of Confusion 12/30, ED note. Additional clarification regarding the etiology/cause of this symptom is requested. History/Risk Factors: 79 year old male presents to the ED with after being instructed by Urgent care for cloudy urine and being more confused than usual. Medical History: Dementia, Deafness, and Parkinsons. 12/30, ED note. Clinical Indicators: Labs, 12/30: Wbc 12.13, neutrophils 8.82, Lactic acid 2.1. Urine analysis, 12/30: Yellow, turbid, protein 2+, blood moderate, Leukocyte esterase Large, RBC >182, WBC >182, US kidney/renal and bladder, 12/31: Renal cystic changes. Cyst within the left hepatic lobe. ID Consult, 12/31 patient presented to hospital with weakness cloudy urine did have difficulty urination some confusion/altered mental status noticed by the did have elevated white count meeting criteria for symptomatic UTI likely from enteric gram-negative pathogen ultrasound did not show any hydronephrosis. Treatment: 12/31 0.9NS IV 130cc/hr; 12/31 Ceftriaxone IVPB Q24H, Please clarify the etiology of the symptom of Altered Mental Status: [ ] Metabolic Encephalopathy due to urinary tract infection [ ] Dementia (if know, specify Type and if with/without Behavioral Disturbance) [ ] Other condition (please specify) [ ] Unable to determine (Template Last Revised: August 2020) not mine MTDD
[2025-01-01] MEDS: amLODIPine 2.5 MG TAB PO SCH (09:45)
[2025-01-01] MEDS: CHOLECALCIFEROL 25 MCG (1000 IU) TABLET PO SCH (09:45)
[2025-01-01] MEDS: AMIODARONE 100 MG TAB PO SCH (09:45)
[2025-01-01] MEDS: MULTIVITAMINS, THERA 1 EACH TAB PO SCH (09:45)
[2025-01-01] MEDS: FINASTERIDE 5 MG TAB PO SCH (09:46)
[2025-01-01] MEDS: ASPIRIN 81 MG PO SCH (09:46)
--- NOTE | 2025-01-01 14:39 | P.PN ---
Subjective Progress Note Date: 01/01/25 Principal diagnosis: Reason for follow-up with UTI Patient is a 79-year-old male with a past medical history significant for CVA TIA hypertension hyperlipidemia atrial fibrillation patient has been brought into the hospital concerning for a urinary tract infection and the patient noted to have significantly cloudy urine along with mental status changes white count positive UA concerning for UTI. On today's evaluation that is 01/01/2025,the patient did have low-grade fever 100.5 1 AM however the patient has been afebrile since then, patient is breathing comfortably on room air, the patient denies chest pain shortness of breath and no significant cough, patient denies abdominal pain, no nausea vomiting or diarrhea. Patient white count is down to 10.89, creatinine 0.9 blood and urine cultures currently pending Objective - Vital Signs Vital signs: Vital Signs Temp 98.1 F 01/01/25 12:07 Pulse 57 L 01/01/25 12:07 Resp 18 01/01/25 12:07 BP 123/71 01/01/25 12:07 Pulse Ox 94 L 01/01/25 12:07 FiO2 Intake & Output 12/31/24 01/01/25 01/01/25 18:59 06:59 18:59 Output Total 550 600 Balance -550 -600 Weight 93.894 kg Output: Urine 550 600 Other: Voiding Method Indwelling Catheter Indwelling Catheter - Exam GENERAL DESCRIPTION: An elderly male lying in bed in no distress RESPIRATORY SYSTEM: Unlabored breathing , decreased breath sounds at bases HEART: S1 S2 regular rate and rhythm , ABDOMEN: Soft , no tenderness EXTREMITIES: No edema feet - Labs CBC & Chem 7: 01/01/25 05:33 01/01/25 05:33 Labs: Abnormal Lab Results - Last 24 Hours (Table) 01/01/25 01/01/25 Range/Units 05:33 05:33 WBC 10.89 H (4.50-10.00) X 10*3/uL RBC 4.23 L (4.40-5.60) X 10*6/uL Hgb 12.5 L (13.0-17.0) g/dL MCHC 31.6 L (32.0-37.0) g/dL MPV 12.5 H (9.5-12.2) FL Neutrophils # 8.42 H (1.80-7.70) X 10*3/uL Chloride 113 H (96-109) mmol/L Calcium 8.3 L (8.7-10.3) mg/dL Total Protein 5.2 L (6.2-8.2) g/dL Albumin 3.3 L (3.8-4.9) g/dL Microbiology - Last 24 Hours (Table) 12/30/24 23:05 Blood Culture - Preliminary Blood 12/30/24 19:40 Urine Culture - Preliminary Urine,Voided Assessment and Plan (1) UTI (urinary tract infection) Current Visit: Yes Status: Acute Code(s): N39.0 - URINARY TRACT INFECTION, SITE NOT SPECIFIED SNOMED Code(s): 26483758 (2) Leukocytosis Current Visit: Yes Status: Acute Code(s): D72.829 - ELEVATED WHITE BLOOD CELL COUNT, UNSPECIFIED SNOMED Code(s): 503765370 (3) Urinary retention Current Visit: Yes Status: Acute Code(s): R33.9 - RETENTION OF URINE, UNSPECIFIED SNOMED Code(s): 757099613 (4) Weakness Current Visit: Yes Status: Acute Code(s): R53.1 - WEAKNESS SNOMED Code(s): 42834624 Plan: 1patient presented to hospital with weakness cloudy urine did have difficulty urination some confusion/altered mental status noticed by the did have elevated white count meeting criteria for symptomatic UTI likely from enteric gram-negative pathogen ultrasound did not show any hydronephrosis 2-patient did have low-grade fever last night afebrile this morning white count is trending down 3patient will be treated with Rocephin while waiting for the culture to finaliz e Dictation was produced using [employer] dictation software. please excuse any grammatical, word or spelling errors. Time with Patient: Less than 30
[2025-01-02] MEDS: PANTOPRAZOLE 40 MG TABLET PO SCH (07:50)
[2025-01-02 07:52] LABS: Basophils # (A) 0.07 X 10*3/uL (0.00-0.10); Basophils % (A) 0.7 %; Eosinophils # (A) 0.34 X 10*3/uL (0.04-0.35); Eosinophils % (A) 3.4 %; HCT 39.8 % (39.6-50.0); HGB 12.3 g/dL (13.0-17.0); Immature Grans, Automated 0.50 %; Lymphocytes # (A) 1.60 X 10*3/uL (0.90-5.00); Lymphocytes % (A) 15.9 %; MCH 29.7 pg (27.0-32.0); MCHC 30.9 g/dL (32.0-37.0); MCV 96.1 FL (80.0-97.0); Monocytes # (A) 0.91 X 10*3/uL (0.20-1.00); Monocytes % (A) 9.0 %; NRBC Per 100 WBC 0 X 10*3/uL (0.00-0.01); Neutrophils # (A) 7.10 X 10*3/uL (1.80-7.70); Neutrophils % (A) 70.5 %; Platelet Count 193 X 10*3/uL (140-440); RBC 4.14 X 10*6/uL (4.40-5.60); RDW 13.1 % (11.5-14.5); WBC 10.07 X 10*3/uL (4.50-10.00)
[2025-01-02 08:06] LABS: BUN/Creat Ratio 11.60 Ratio (12.00-20.00); Blood Urea Nitrogen 11.6 mg/dL (9.0-27.0); Chloride 110 mmol/L (96-109); Glucose 112 mg/dL (70-110); Potassium 3.9 mmol/L (3.5-5.5); Sodium 142 mmol/L (135-145)
[2025-01-02 08:07] LABS: ALT 12 U/L (10-49); AST 18 U/L (14-35); Albumin 3.2 g/dL (3.8-4.9); Albumin/Globulin Ratio 1.68 Ratio (1.60-3.17); Alkaline Phosphatase 92 U/L (41-126); Anion Gap 9.90 mmol/L (4.00-12.00); Calcium 8.1 mg/dL (8.7-10.3); Carbon Dioxide 22.1 mmol/L (21.6-31.8); Globulin 1.9 g/dL (1.6-3.3); Total Protein 5.1 g/dL (6.2-8.2)
[2025-01-02] MEDS: AMOXIC-POT CLAV 875-125MG 1 EACH TAB PO STA (14:48)
--- NOTE | 2025-01-02 16:04 | P.PN ---
Subjective Progress Note Date: 01/02/25 Principal diagnosis: Reason for follow-up with UTI Patient is a 79-year-old male with a past medical history significant for CVA TIA hypertension hyperlipidemia atrial fibrillation patient has been brought into the hospital concerning for a urinary tract infection and the patient noted to have significantly cloudy urine along with mental status changes white count positive UA concerning for UTI. On today's evaluation that is 01/02/2025,the patient remains to be afebrile, patient is on room air not requiring supplemental oxygen and denies any shortness of breath no chest pain or cough.Patient denies having any nausea or vomiting, no abdominal pain and no diarrhea, patient mention feeling better wants to go home. The patient white count is noted 10.07, creatinine is 1.0 urine is growing Enterococcus faecalis blood culture has been negative Objective - Vital Signs Vital signs: Vital Signs Temp 97.4 F L 01/02/25 13:21 Pulse 60 01/02/25 13:21 Resp 18 01/02/25 13:21 BP 157/79 01/02/25 13:21 Pulse Ox 95 01/02/25 13:21 FiO2 Intake & Output 01/01/25 01/02/25 01/02/25 18:59 06:59 18:59 Intake Total 570 120 Output Total 891 952 0215 Balance -330 525 -1580 Intake: Intake, IV Titration 570 Amount Sodium Chloride 0.9% 1, 520 000 ml @ 130 mls/hr IV . Q7H42M [facility] Rx#:[id number] cefTRIAXone 2 gm In 50 Sodium Chloride 0.9% 50 ml @ 100 mls/hr IVPB Q24HR [facility] Rx#:[id number] Oral 120 Output: Urine 806 236 6762 Other: Voiding Method Indwelling Catheter Indwelling Catheter Indwelling Catheter # Bowel Movements 1 - Exam GENERAL DESCRIPTION: An elderly male lying in bed in no distress RESPIRATORY SYSTEM: Unlabored breathing , decreased breath sounds at bases HEART: S1 S2 regular rate and rhythm , ABDOMEN: Soft , no tenderness EXTREMITIES: No edema feet - Labs CBC & Chem 7: 01/02/25 05:37 01/02/25 05:37 Labs: Abnormal Lab Results - Last 24 Hours (Table) 01/02/25 01/02/25 Range/Units 05:37 05:37 WBC 10.07 H (4.50-10.00) X 10*3/uL RBC 4.14 L (4.40-5.60) X 10*6/uL Hgb 12.3 L (13.0-17.0) g/dL MCHC 30.9 L (32.0-37.0) g/dL Immature Gran # 0.05 H (0.00-0.04) X 10*3/uL Chloride 110 H (96-109) mmol/L BUN/Creatinine Ratio 11.60 L (12.00-20.00) Ratio Glucose 112 H (70-110) mg/dL Calcium 8.1 L (8.7-10.3) mg/dL Total Bilirubin 0.2 L (0.3-1.2) mg/dL Total Protein 5.1 L (6.2-8.2) g/dL Albumin 3.2 L (3.8-4.9) g/dL Microbiology - Last 24 Hours (Table) 12/30/24 19:40 Urine Culture - Final Urine,Voided Enterococcus faecalis 12/30/24 23:05 Blood Culture - Preliminary Blood Assessment and Plan (1) UTI (urinary tract infection) Current Visit: Yes Status: Acute Code(s): N39.0 - URINARY TRACT INFECTION, SITE NOT SPECIFIED SNOMED Code(s): 59238263 (2) Leukocytosis Current Visit: Yes Status: Acute Code(s): D72.829 - ELEVATED WHITE BLOOD CELL COUNT, UNSPECIFIED SNOMED Code(s): 635355752 (3) Urinary retention Current Visit: Yes Status: Acute Code(s): R33.9 - RETENTION OF URINE, UNSPECIFIED SNOMED Code(s): 140188874 (4) Weakness Current Visit: Yes Status: Acute Code(s): R53.1 - WEAKNESS SNOMED Code(s): 57417078 Plan: 1patient presented to hospital with weakness cloudy urine did have difficulty urination some confusion/altered mental status noticed by the did have elevated white count meeting criteria for symptomatic UTI likely from enteric gram-negative pathogen ultrasound did not show any hydronephrosis 2-patient did have resolution of his fever white count normalized urine is growing Enterococcus faecalis 3we will continue Rocephin give him a dose of oral Augmentin as the plan is for possible discharge as asked by the admitting physician prescription for oral Augmentin has been sent to the pharmacy Dictation was produced using [employer] dictation software. please excuse any grammatical, word or spelling errors. Time with Patient: Less than 30
--- NOTE | 2025-01-02 17:23 | CDI ---
Documentation Clarification Form Date: 01/01/2025 09:19:00 AM From: Lakeisha Gerard RN CCDS Phone: [phone] Admit Date: 12/31/2024 01:27:00 AM Patient Name: Mak Venegas Visit Number: [id number] Discharge Date: ATTENTION: The Clinical Documentation Specialists (CDI) and [facility] Coding Staff appreciate your assistance in clarifying documentation. Please respond to the clarification below the line at the bottom and electronically sign. The CDI & [facility] Coding staff will review the response and follow-up if needed. Please note: Queries are made part of the Legal Health Record. If you have any questions, please contact the author of this message via ITS. Doctor: Damon Bernal Your patient has the documented symptom of Confusion 12/30, ED note. Additional clarification regarding the etiology/cause of this symptom is requested. History/Risk Factors: 79 year old male presents to the ED with after being instructed by Urgent care for cloudy urine and being more confused than usual. Medical History: Dementia, Deafness, and Parkinsons. 12/30, ED note. Clinical Indicators: Labs, 12/30: Wbc 12.13, neutrophils 8.82, Lactic acid 2.1. Urine analysis, 12/30: Yellow, turbid, protein 2+, blood moderate, Leukocyte esterase Large, RBC >182, WBC >182, US kidney/renal and bladder, 12/31: Renal cystic changes. Cyst within the left hepatic lobe. ID Consult, 12/31 patient presented to hospital with weakness cloudy urine did have difficulty urination some confusion/altered mental status noticed by the did have elevated white count meeting criteria for symptomatic UTI likely from enteric gram-negative pathogen ultrasound did not show any hydronephrosis. Treatment: 12/31 0.9NS IV 130cc/hr ; 12/31 Ceftriaxone IVPB Q24H, Please clarify the etiology of the symptom of Altered Mental Status: [ x] Metabolic Encephalopathy due to urinary tract infection [ ] Dementia (if know, specify Type and if with/without Behavioral Disturbance) [ ] Other condition (please specify) [ ] Unable to determine (Template Last Revised: August 2020) MTDD
--- NOTE | 2025-01-02 21:52 | P.PN ---
Progress Note - Text Progress Note Date: 01/02/25 79-year-old male with a past medical history of atrial fibrillation (on Lovenox at home), hypertension, hyperlipidemia, deafness presents with complaints of urinary retention and dysuria. Patient is a poor historian per the ER note patient was brought in by his for concerns of UTI. had stated that their insurance would not cover laboratory testing at the urgent care so were instructed to come here for further evaluation. In the ED patient underwent lab work which was significant for a white count of 12.13, neutrophils 8.82, plasma lactate 2.1 which then down trended to 1.6, and the UA was significant for large leukocyte esterase greater than 182 RBC and WBC, 2+ protein, and moderate blood. At this point patient was admitted and started on Rocephin 2 g daily as well as NS 130 cc/h. 01/01. Patient seen examined.vital signs Stable. WBCs morning is 10.89, hemoglobin 0.5, sodium 144, potassium 4.2. No acute issues overnight 01/02: Patient seen this morning. Comfortable. Tolerating his diet. A trial of DC Walden was done. Unable to void. Walden was reinserted. Patient follow-up with urology. Patient was to be discharged this evening. Unable to transfer. did come in. PT OT has been consulted. Plan to look for additional disposition. Active Medications Amiodarone HCl (Amiodarone 100 Mg Tab) 100 mg PO SUWESA [facility] Last Admin: 01/01/25 09:45 Dose: 100 mg Amlodipine Besylate (Amlodipine 2.5 Mg Tab) 2.5 mg PO DAILY [facility] Last Admin: 01/02/25 07:50 Dose: 2.5 mg Aspirin (Aspirin 81 Mg) 81 mg PO DAILY [facility] Last Admin: 01/02/25 07:50 Dose: 81 mg Atorvastatin Calcium (Atorvastatin 40 Mg Tab) 40 mg PO HS [facility] Last Admin: 01/02/25 20:38 Dose: 40 mg Carbidopa/Levodopa (Carbidopa-Levodopa 25-100 Mg 1 Each Tab) 2 each PO TID [facility] Last Admin: 01/02/25 20:38 Dose: 2 each Cholecalciferol (Cholecalciferol 25 Mcg (1000 Iu) Tablet) 25 mcg PO DAILY [facility] Last Admin: 01/02/25 07:50 Dose: 25 mcg Donepezil HCl (Donepezil 10 Mg Tab) 20 mg PO HS [facility] Last Admin: 01/02/25 20:38 Dose: 20 mg Finasteride (Finasteride 5 Mg Tab) 5 mg PO DAILY [facility] Last Admin: 01/02/25 07:50 Dose: 5 mg Morphine Sulfate (Morphine Sulfate 4 Mg/Ml Syringe) 4 mg IV Q4HR PRN PRN Reason: Severe Pain (Scale 7 to 10) Multivitamins (Multivitamins, Thera 1 Each Tab) 1 each PO DAILY [facility] Last Admin: 01/02/25 07:50 Dose: 1 each Multivitamins/Minerals (Vit A,C & I-Nojsau-Tuqmeqyl 1 Each Tab) 1 each PO BID [facility] Last Admin: 01/02/25 20:38 Dose: 1 each Naloxone HCl (Naloxone 0.4 Mg/Ml 1 Ml Vial) 0.2 mg IV Q2M PRN PRN Reason: Opioid Reversal Ondansetron HCl (Ondansetron 4 Mg/2 Ml Vial) 4 mg IVP Q8HR PRN PRN Reason: Nausea And Vomiting Pantoprazole Sodium (Pantoprazole 40 Mg Tablet) 40 mg PO AC-BRKFST [facility] Last Admin: 01/02/25 07:50 Dose: 40 mg P on examination: VITAL SIGNS: [: 97.4, 60, 18, 157 x 79, 95% room air] GENERAL APPEARANCE: Reclining in bed, comfortable. HEENT: Normal external appearance of nose and ear. Oral cavity normal EYES: Pupils equal. Conjunctiva normal. NECK: JVD not raised. Mass not palpable. RESPIRATORY: Respiratory effort normal. Lungs clear to auscultation. CARDIOVASCULAR: First and second sounds normal. No edema. ABDOMEN: Soft. Liver and spleen not palpable. No tenderness. No mass palpable. PSYCHIATRY: Able to answer simple questions. Mood affect normal INVESTIGATIONS, reviewed in the clinical context: January 02: White count 10.0 hemoglobin 12.3 platelets 193 sodium 142 potassium 3.9 creatinine 1.0 Assessment and plan -Acute UTI with cystitis secondary to Enterococcus faecalis: Received IV ceftriaxone. 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 Failed trial of DC Walden. Walden catheter reinserted Proscar # Essential hypertension Amlodipine #Atrial fibrillation #Hyperlipidemia Crestor 20 mg nightly - Moderate cognitive impairment from late onset Alzheimer's dementia Aricept - Parkinson's disease Sinemet -Acute medical debility. Having difficulty transfer. PT OT Discharge canceled. 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 Objective - Vital Signs Vital signs: Vital Signs Temp 97.9 F 01/01/25 07:05 Pulse 53 L 01/01/25 07:05 Resp 20 01/01/25 07:05 BP 166/76 01/01/25 07:05 Pulse Ox 94 L 01/01/25 07:05 FiO2 Intake & Output 12/31/24 01/01/25 01/01/25 18:59 06:59 18:59 Output Total 550 Balance -550 Weight 93.894 kg Output: Urine 550 Other: Voiding Method Indwelling Catheter - Labs CBC & Chem 7: 01/01/25 05:33 01/01/25 05:33 Labs: Abnormal Lab Results - Last 24 Hours (Table) 01/01/25 01/01/25 Range/Units 05:33 05:33 WBC 10.89 H (4.50-10.00) X 10*3/uL RBC 4.23 L (4.40-5.60) X 10*6/uL Hgb 12.5 L (13.0-17.0) g/dL MCHC 31.6 L (32.0-37.0) g/dL MPV 12.5 H (9.5-12.2) FL Neutrophils # 8.42 H (1.80-7.70) X 10*3/uL Chloride 113 H (96-109) mmol/L Calcium 8.3 L (8.7-10.3) mg/dL Total Protein 5.2 L (6.2-8.2) g/dL Albumin 3.3 L (3.8-4.9) g/dL Microbiology - Last 24 Hours (Table) 12/30/24 23:05 Blood Culture - Preliminary Blood 12/30/24 19:40 Urine Culture - Preliminary Urine,Voided
[2025-01-02] MEDS: ENOXAPARIN 40 MG/0.4 ML SYRINGE SQ SCH (23:13)
[2025-01-03] MEDS: AMOXIC-POT CLAV 875-125MG 1 EACH TAB PO SCH (09:02)
--- NOTE | 2025-01-03 15:51 | P.PN ---
Subjective Progress Note Date: 01/03/25 Principal diagnosis: Reason for follow-up with UTI Patient is a 79-year-old male with a past medical history significant for CVA TIA hypertension hyperlipidemia atrial fibrillation patient has been brought into the hospital concerning for a urinary tract infection and the patient noted to have significantly cloudy urine along with mental status changes white count positive UA concerning for UTI. On today's evaluation that is 01/02/2025,the patient remains to be afebrile, patient is on room air not requiring supplemental oxygen and denies any shortness of breath no chest pain or cough.Patient denies having any nausea or vomiting, no abdominal pain and no diarrhea has been reported. No new lab has been obtained today Objective - Vital Signs Vital signs: Vital Signs Temp 98.1 F 01/03/25 08:00 Pulse 71 01/03/25 08:00 Resp 20 01/03/25 08:00 BP 198/77 01/03/25 08:00 Pulse Ox 95 01/03/25 08:00 FiO2 Intake & Output 01/02/25 01/03/25 01/03/25 18:59 06:59 18:59 Intake Total 170 590 Output Total 1950 3700 Balance -1780 -3110 Intake: Intake, IV Titration 50 Amount cefTRIAXone 2 gm In 50 Sodium Chloride 0.9% 50 ml @ 100 mls/hr IVPB Q24HR [facility] Rx#:[id number] Oral 120 590 Output: Urine 1950 3200 Uretheral (Walden) 600 Post Void Residual 500 Other: Voiding Method Indwelling Catheter Indwelling Catheter # Bowel Movements 1 1 - Exam GENERAL DESCRIPTION: An elderly male lying in bed in no distress RESPIRATORY SYSTEM: Unlabored breathing , decreased breath sounds at bases HEART: S1 S2 regular rate and rhythm , ABDOMEN: Soft , no tenderness EXTREMITIES: No edema feet - Labs CBC & Chem 7: 01/02/25 05:37 01/02/25 05:37 Labs: Microbiology - Last 24 Hours (Table) 12/30/24 23:05 Blood Culture - Preliminary Blood Assessment and Plan (1) UTI (urinary tract infection) Current Visit: Yes Status: Acute Code(s): N39.0 - URINARY TRACT INFECTION, SITE NOT SPECIFIED SNOMED Code(s): 26707298 (2) Leukocytosis Current Visit: Yes Status: Acute Code(s): D72.829 - ELEVATED WHITE BLOOD CELL COUNT, UNSPECIFIED SNOMED Code(s): 158758799 (3) Urinary retention Current Visit: Yes Status: Acute Code(s): R33.9 - RETENTION OF URINE, UNSPECIFIED SNOMED Code(s): 437336858 (4) Weakness Current Visit: Yes Status: Acute Code(s): R53.1 - WEAKNESS SNOMED Code(s): 04246296 Plan: 1patient presented to hospital with weakness cloudy urine did have difficulty urination some confusion/altered mental status noticed by the did have elevated white count meeting criteria for symptomatic UTI likely from enteric gram-negative pathogen ultrasound did not show any hydronephrosis 2-patient did have resolution of his fever white count normalized urine is growing Enterococcus faecalis 3patient is currently being treated with oral Augmentin and monitor clinical course closely Dictation was produced using [employer] dictation software. please excuse any grammatical, word or spelling errors.
--- NOTE | 2025-01-03 20:28 | P.PN ---
Progress Note - Text Progress Note Date: 01/03/25 79-year-old male with a past medical history of atrial fibrillation (on Lovenox at home), hypertension, hyperlipidemia, deafness presents with complaints of urinary retention and dysuria. Patient is a poor historian per the ER note patient was brought in by his for concerns of UTI. had stated that their insurance would not cover laboratory testing at the urgent care so were instructed to come here for further evaluation. In the ED patient underwent lab work which was significant for a white count of 12.13, neutrophils 8.82, plasma lactate 2.1 which then down trended to 1.6, and the UA was significant for large leukocyte esterase greater than 182 RBC and WBC, 2+ protein, and moderate blood. At this point patient was admitted and started on Rocephin 2 g daily as well as NS 130 cc/h. 01/01. Patient seen examined.vital signs Stable. WBCs morning is 10.89, hemoglobin 0.5, sodium 144, potassium 4.2. No acute issues overnight 01/02: Patient seen this morning. Comfortable. Tolerating his diet. A trial of DC Walden was done. Unable to void. Walden was reinserted. Patient follow-up with urology. Patient was to be discharged this evening. Unable to transfer. did come in. PT OT has been consulted. Plan to look for additional disposition. January 03: Comfortable. No new issues. 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 Active Medications Amiodarone HCl (Amiodarone 100 Mg Tab) [address] [facility] Last Admin: 01/01/25 09:45 Dose: 100 mg Amlodipine Besylate (Amlodipine 2.5 Mg Tab) 2.5 mg PO DAILY [facility] Last Admin: 01/03/25 09:03 Dose: 2.5 mg Amoxicillin/Clavulanate Potassium (Amoxic-Pot Clav 875-125mg 1 Each Tab) 1 each PO Q12HR [facility]; Protocol Last Admin: 01/03/25 09:02 Dose: 1 each Aspirin (Aspirin 81 Mg) 81 mg PO DAILY [facility] Last Admin: 01/03/25 09:03 Dose: 81 mg Atorvastatin Calcium (Atorvastatin 40 Mg Tab) 40 mg PO HS [facility] Last Admin: 01/02/25 20:38 Dose: 40 mg Carbidopa/Levodopa (Carbidopa-Levodopa 25-100 Mg 1 Each Tab) 2 each PO TID [facility] Last Admin: 01/03/25 16:47 Dose: 2 each Cholecalciferol (Cholecalciferol 25 Mcg (1000 Iu) Tablet) 25 mcg PO DAILY [facility] Last Admin: 01/03/25 09:02 Dose: 25 mcg Donepezil HCl (Donepezil 10 Mg Tab) 20 mg PO HS [facility] Last Admin: 01/02/25 20:38 Dose: 20 mg Enoxaparin Sodium (Enoxaparin 40 Mg/0.4 Ml Syringe) 40 mg SQ DAILY [facility] Last Admin: 01/03/25 09:03 Dose: 40 mg Finasteride (Finasteride 5 Mg Tab) 5 mg PO DAILY [facility] Last Admin: 01/03/25 09:03 Dose: 5 mg Multivitamins (Multivitamins, Thera 1 Each Tab) 1 each PO DAILY [facility] Last Admin: 01/03/25 09:02 Dose: 1 each Multivitamins/Minerals (Vit A,C & O-Rjvicv-Qpdxgsrm 1 Each Tab) 1 each PO BID [facility] Last Admin: 01/03/25 09:03 Dose: 1 each Naloxone HCl (Naloxone 0.4 Mg/Ml 1 Ml Vial) 0.2 mg IV Q2M PRN PRN Reason: Opioid Reversal Ondansetron HCl (Ondansetron 4 Mg/2 Ml Vial) 4 mg IVP Q8HR PRN PRN Reason: Nausea And Vomiting Pantoprazole Sodium (Pantoprazole 40 Mg Tablet) 40 mg PO AC-BRKFST [facility] Last Admin: 01/03/25 09:02 Dose: 40 mg P on examination: VITAL SIGNS: 37.8, 69, 16, 1 4893, 94% room air GENERAL APPEARANCE: Reclining in bed, comfortable. HEENT: Normal external appearance of nose and ear. Oral cavity normal EYES: Pupils equal. Conjunctiva normal. NECK: JVD not raised. Mass not palpable. RESPIRATORY: Respiratory effort normal. Lungs clear to auscultation. CARDIOVASCULAR: First and second sounds normal. No edema. ABDOMEN: Soft. Liver and spleen not palpable. No tenderness. No mass palpable. PSYCHIATRY: Able to answer simple questions. Mood affect normal INVESTIGATIONS, reviewed in the clinical context: January 02: White count 10.0 hemoglobin 12.3 platelets 193 sodium 142 potassium 3.9 creatinine 1.0 Assessment and plan -Acute UTI with cystitis secondary to Enterococcus faecalis: Received IV ceftriaxone. 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 Failed trial of DC Walden. Walden catheter reinserted Proscar # Essential hypertension Amlodipine #Atrial fibrillation #Hyperlipidemia Crestor 20 mg nightly - Moderate cognitive impairment from late onset Alzheimer's dementia Aricept - Parkinson's disease Sinemet -Acute medical debility. Having difficulty transfer. PT OT Social work looking into disposition
--- NOTE | 2025-01-04 13:15 | P.PN ---
Progress Note - Text Progress Note Date: 01/04/25 79-year-old male with a past medical history of atrial fibrillation (on Lovenox at home), hypertension, hyperlipidemia, deafness presents with complaints of urinary retention and dysuria. Patient is a poor historian per the ER note patient was brought in by his for concerns of UTI. had stated that their insurance would not cover laboratory testing at the urgent care so were instructed to come here for further evaluation. In the ED patient underwent lab work which was significant for a white count of 12.13, neutrophils 8.82, plasma lactate 2.1 which then down trended to 1.6, and the UA was significant for large leukocyte esterase greater than 182 RBC and WBC, 2+ protein, and moderate blood. At this point patient was admitted and started on Rocephin 2 g daily as well as NS 130 cc/h. 01/01. Patient seen examined.vital signs Stable. WBCs morning is 10.89, hemoglobin 0.5, sodium 144, potassium 4.2. No acute issues overnight 01/02: Patient seen this morning. Comfortable. Tolerating his diet. A trial of DC Walden was done. Unable to void. Walden was reinserted. Patient follow-up with urology. Patient was to be discharged this evening. Unable to transfer. did come in. PT OT has been consulted. Plan to look for additional disposition. January 03: Comfortable. No new issues. 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 January 04: Resting bed. Eating well. Was seen by PT OT. Pending going to subacute rehab. Active Medications Amiodarone HCl (Amiodarone 100 Mg Tab) 100 mg PO [facility] Last Admin: 01/04/25 08:39 Dose: 100 mg Amlodipine Besylate (Amlodipine 2.5 Mg Tab) 2.5 mg PO DAILY [facility] Last Admin: 01/04/25 08:38 Dose: 2.5 mg Amoxicillin/Clavulanate Potassium (Amoxic-Pot Clav 875-125mg 1 Each Tab) 1 each PO Q12HR [facility]; Protocol Last Admin: 01/04/25 08:38 Dose: 1 each Aspirin (Aspirin 81 Mg) 81 mg PO DAILY [facility] Last Admin: 01/04/25 08:38 Dose: 81 mg Atorvastatin Calcium (Atorvastatin 40 Mg Tab) 40 mg PO [facility] Last Admin: 01/03/25 21:22 Dose: 40 mg Carbidopa/Levodopa (Carbidopa-Levodopa 25-100 Mg 1 Each Tab) 2 each PO TID [facility] Last Admin: 01/04/25 08:39 Dose: 2 each Cholecalciferol (Cholecalciferol 25 Mcg (1000 Iu) Tablet) 25 mcg PO DAILY [facility] Last Admin: 01/04/25 08:39 Dose: 25 mcg Donepezil HCl (Donepezil 10 Mg Tab) 20 mg PO HS [facility] Last Admin: 01/03/25 21:22 Dose: 20 mg Enoxaparin Sodium (Enoxaparin 40 Mg/0.4 Ml Syringe) 40 mg SQ DAILY [facility] Last Admin: 01/04/25 08:39 Dose: 40 mg Finasteride (Finasteride 5 Mg Tab) 5 mg PO DAILY [facility] Last Admin: 01/04/25 08:39 Dose: 5 mg Multivitamins (Multivitamins, Thera 1 Each Tab) 1 each PO DAILY [facility] Last Admin: 01/04/25 08:38 Dose: 1 each Multivitamins/Minerals (Vit A,C & M-Rjuiri-Zmqtprbg 1 Each Tab) 1 each PO BID [facility] Last Admin: 01/04/25 08:39 Dose: 1 each Naloxone HCl (Naloxone 0.4 Mg/Ml 1 Ml Vial) 0.2 mg IV Q2M PRN PRN Reason: Opioid Reversal Ondansetron HCl (Ondansetron 4 Mg/2 Ml Vial) 4 mg IVP Q8HR PRN PRN Reason: Nausea And Vomiting Pantoprazole Sodium (Pantoprazole 40 Mg Tablet) 40 mg PO AC-BRKFST [facility] Last Admin: 01/04/25 08:38 Dose: 40 mg P on examination: VITAL SIGNS: 97.6, 54, 16, 127 x 67, 94% room air GENERAL APPEARANCE: Resting, comfortable. HEENT: Normal external appearance of nose and ear. Oral cavity normal EYES: Pupils equal. Conjunctiva normal. NECK: JVD not raised. Mass not palpable. RESPIRATORY: Respiratory effort normal. Lungs clear to auscultation. CARDIOVASCULAR: First and second sounds normal. No edema. ABDOMEN: Soft. Liver and spleen not palpable. No tenderness. No mass palpable. PSYCHIATRY: Able to answer simple questions. Mood affect normal INVESTIGATIONS, reviewed in the clinical context: January 02: White count 10.0 hemoglobin 12.3 platelets 193 sodium 142 potassium 3.9 creatinine 1.0 Assessment and plan -Acute UTI with cystitis secondary to Enterococcus faecalis: Received IV ceftriaxone. 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 Failed trial of DC Walden. Walden catheter reinserted Proscar Urology consulted # Essential hypertension Amlodipine #Atrial fibrillation #Hyperlipidemia Crestor 20 mg nightly - Moderate-severe cognitive impairment from late onset Alzheimer's dementia Aricept - Parkinson's disease Sinemet -Acute medical debility. Having difficulty transfer. PT OT on the case Social work looking into disposition into possible subacute rehab
--- NOTE | 2025-01-04 15:22 | P.PN ---
Subjective Progress Note Date: 01/04/25 Principal diagnosis: Reason for follow-up with UTI Patient is a 79-year-old male with a past medical history significant for CVA TIA hypertension hyperlipidemia atrial fibrillation patient has been brought into the hospital concerning for a urinary tract infection and the patient noted to have significantly cloudy urine along with mental status changes white count positive UA concerning for UTI. On today's evaluation that is 01/05/2024, patient did have a temperature of 98.4 F this morning patient elevated comfortably on room air the patient is sleepy no vomiting diarrhea or any other changes reported by nursing staff. No new lab has been obtained today blood culture remains to be negative Objective - Vital Signs Vital signs: Vital Signs Temp 97.6 F 01/04/25 12:58 Pulse 54 L 01/04/25 12:58 Resp 16 01/04/25 12:58 BP 127/67 01/04/25 12:58 Pulse Ox 94 L 01/04/25 12:58 FiO2 Intake & Output 01/03/25 01/04/25 01/04/25 18:59 06:59 18:59 Intake Total 1180 Output Total 600 900 Balance -600 280 Intake: Oral 1180 Output: Urine 600 900 Other: Voiding Method Indwelling Catheter Indwelling Catheter Indwelling Catheter - Exam GENERAL DESCRIPTION: An elderly male lying in bed in no distress RESPIRATORY SYSTEM: Unlabored breathing , decreased breath sounds at bases HEART: S1 S2 regular rate and rhythm , ABDOMEN: Soft , no tenderness EXTREMITIES: No edema feet - Labs CBC & Chem 7: 01/02/25 05:37 01/02/25 05:37 Assessment and Plan (1) UTI (urinary tract infection) Current Visit: Yes Status: Acute Code(s): N39.0 - URINARY TRACT INFECTION, SITE NOT SPECIFIED SNOMED Code(s): 56536998 (2) Leukocytosis Current Visit: Yes Status: Acute Code(s): D72.829 - ELEVATED WHITE BLOOD CELL COUNT, UNSPECIFIED SNOMED Code(s): 051235677 (3) Urinary retention Current Visit: Yes Status: Acute Code(s): R33.9 - RETENTION OF URINE, UNSPECIFIED SNOMED Code(s): 354460924 (4) Weakness Current Visit: Yes Status: Acute Code(s): R53.1 - WEAKNESS SNOMED Code(s): 50499081 Plan: 1patient presented to hospital with weakness cloudy urine did have difficulty urination some confusion/altered mental status noticed by the did have elevated white count meeting criteria for symptomatic UTI likely from enteric gram-negative pathogen ultrasound did not show any hydronephrosis 2-patient did have resolution of his fever white count normalized urine is growing Enterococcus faecalis for the patient is currently covered with oral Augmentin and continue with supportive care Dictation was produced using [employer] dictation software. please excuse any grammatical, word or spelling errors. Time with Patient: Less than 30
--- NOTE | 2025-01-05 16:37 | P.PN ---
Progress Note - Text Progress Note Date: 01/05/25 79-year-old male with a past medical history of atrial fibrillation (on Lovenox at home), hypertension, hyperlipidemia, deafness presents with complaints of urinary retention and dysuria. Patient is a poor historian per the ER note patient was brought in by his for concerns of UTI. had stated that their insurance would not cover laboratory testing at the urgent care so were instructed to come here for further evaluation. In the ED patient underwent lab work which was significant for a white count of 12.13, neutrophils 8.82, plasma lactate 2.1 which then down trended to 1.6, and the UA was significant for large leukocyte esterase greater than 182 RBC and WBC, 2+ protein, and moderate blood. At this point patient was admitted and started on Rocephin 2 g daily as well as NS 130 cc/h. 01/01. Patient seen examined.vital signs Stable. WBCs morning is 10.89, hemoglobin 0.5, sodium 144, potassium 4.2. No acute issues overnight 01/02: Patient seen this morning. Comfortable. Tolerating his diet. A trial of DC Walden was done. Unable to void. Walden was reinserted. Patient follow-up with urology. Patient was to be discharged this evening. Unable to transfer. did come in. PT OT has been consulted. Plan to look for additional disposition. January 03: Comfortable. No new issues. 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 January 04: Resting bed. Eating well. Was seen by PT OT. Pending going to subacute rehab. January 05: Up in recliner. Eating fair. Pending decision about rehab. Active Medications Amiodarone HCl (Amiodarone 100 Mg Tab) 100 mg PO [facility] Last Admin: 01/05/25 07:43 Dose: 100 mg Amlodipine Besylate (Amlodipine 2.5 Mg Tab) 2.5 mg PO DAILY [facility] Last Admin: 01/05/25 07:43 Dose: 2.5 mg Amoxicillin/Clavulanate Potassium (Amoxic-Pot Clav 875-125mg 1 Each Tab) 1 each PO Q12HR [facility]; Protocol Last Admin: 01/05/25 07:43 Dose: 1 each Aspirin (Aspirin 81 Mg) 81 mg PO DAILY [facility] Last Admin: 01/05/25 07:43 Dose: 81 mg Atorvastatin Calcium (Atorvastatin 40 Mg Tab) 40 mg PO HS [facility] Last Admin: 01/04/25 22:37 Dose: 40 mg Carbidopa/Levodopa (Carbidopa-Levodopa 25-100 Mg 1 Each Tab) 2 each PO TID [facility] Last Admin: 01/05/25 07:42 Dose: 2 each Cholecalciferol (Cholecalciferol 25 Mcg (1000 Iu) Tablet) 25 mcg PO DAILY [facility] Last Admin: 01/05/25 07:43 Dose: 25 mcg Donepezil HCl (Donepezil 10 Mg Tab) 20 mg PO HS [facility] Last Admin: 01/04/25 22:37 Dose: 20 mg Enoxaparin Sodium (Enoxaparin 40 Mg/0.4 Ml Syringe) 40 mg SQ DAILY [facility] Last Admin: 01/05/25 07:43 Dose: 40 mg Finasteride (Finasteride 5 Mg Tab) 5 mg PO DAILY [facility] Last Admin: 01/05/25 07:43 Dose: 5 mg Multivitamins (Multivitamins, Thera 1 Each Tab) 1 each PO DAILY [facility] Last Admin: 01/05/25 07:42 Dose: 1 each Multivitamins/Minerals (Vit A,C & S-Feocdz-Qmxiwwkd 1 Each Tab) 1 each PO BID [facility] Last Admin: 01/05/25 07:43 Dose: 1 each Naloxone HCl (Naloxone 0.4 Mg/Ml 1 Ml Vial) 0.2 mg IV Q2M PRN PRN Reason: Opioid Reversal Ondansetron HCl (Ondansetron 4 Mg/2 Ml Vial) 4 mg IVP Q8HR PRN PRN Reason: Nausea And Vomiting Pantoprazole Sodium (Pantoprazole 40 Mg Tablet) 40 mg PO AC-BRKFST [facility] Last Admin: 01/05/25 07:43 Dose: 40 mg P on examination: VITAL SIGNS: 97.8, 67, 20, 144 x 90, 96% room air GENERAL APPEARANCE: Up in a recliner, comfortable HEENT: Normal external appearance of nose and ear. Oral cavity normal EYES: Pupils equal. Conjunctiva normal. NECK: JVD not raised. Mass not palpable. RESPIRATORY: Respiratory effort normal. Lungs clear to auscultation. CARDIOVASCULAR: First and second sounds normal. No edema. ABDOMEN: Soft. Liver and spleen not palpable. No tenderness. No mass palpable. PSYCHIATRY: Able to answer simple questions. Mood affect normal INVESTIGATIONS, reviewed in the clinical context: January 02: White count 10.0 hemoglobin 12.3 platelets 193 sodium 142 potassium 3.9 creatinine 1.0 Assessment and plan -Acute UTI with cystitis secondary to Enterococcus faecalis: Received IV ceftriaxone. 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 Failed trial of DC Walden. Walden catheter reinserted Proscar Urology consulted # Essential hypertension Amlodipine #Atrial fibrillation #Hyperlipidemia Crestor 20 mg nightly - Moderate-severe cognitive impairment from late onset Alzheimer's dementia Aricept - Parkinson's disease Sinemet -Acute medical debility. Having difficulty transfer. PT OT on the case Social work looking into disposition into possible subacute rehab
--- NOTE | 2025-01-05 16:44 | P.PN ---
Subjective Progress Note Date: 01/05/25 Principal diagnosis: Reason for follow-up with UTI Patient is a 79-year-old male with a past medical history significant for CVA TIA hypertension hyperlipidemia atrial fibrillation patient has been brought into the hospital concerning for a urinary tract infection and the patient noted to have significantly cloudy urine along with mental status changes white count positive UA concerning for UTI. On today's evaluation that is 01/05/2025, Patient is afebrile patient is currently on room air and denies having any shortness of breath, the patient denies any chest pain or cough, the patient denies any nausea vomiting did not have any abdominal pain and no diarrhea. No new lab has been obtained today Objective - Vital Signs Vital signs: Vital Signs Temp 97.8 F 01/05/25 14:00 Pulse 67 01/05/25 14:00 Resp 20 01/05/25 14:00 BP 144/90 01/05/25 14:00 Pulse Ox 96 01/05/25 14:00 FiO2 Intake & Output 01/04/25 01/05/25 01/05/25 18:59 06:59 18:59 Output Total 850 2500 350 Balance -850 -2500 -350 Output: Urine 850 2500 350 Other: Voiding Method Indwelling Catheter Indwelling Catheter Indwelling Catheter - Exam GENERAL DESCRIPTION: An elderly male lying in bed in no distress RESPIRATORY SYSTEM: Unlabored breathing , decreased breath sounds at bases HEART: S1 S2 regular rate and rhythm , ABDOMEN: Soft , no tenderness EXTREMITIES: No edema feet - Labs CBC & Chem 7: 01/02/25 05:37 01/02/25 05:37 Labs: Microbiology - Last 24 Hours (Table) 12/30/24 23:05 Blood Culture - Final Blood Assessment and Plan (1) UTI (urinary tract infection) Current Visit: Yes Status: Acute Code(s): N39.0 - URINARY TRACT INFECTION, SITE NOT SPECIFIED SNOMED Code(s): 92034505 (2) Leukocytosis Current Visit: Yes Status: Acute Code(s): D72.829 - ELEVATED WHITE BLOOD CELL COUNT, UNSPECIFIED SNOMED Code(s): 505357046 (3) Urinary retention Current Visit: Yes Status: Acute Code(s): R33.9 - RETENTION OF URINE, UNSPECIFIED SNOMED Code(s): 541347774 (4) Weakness Current Visit: Yes Status: Acute Code(s): R53.1 - WEAKNESS SNOMED Code(s): 74398029 Plan: 1patient presented to hospital with weakness cloudy urine did have difficulty urination some confusion/altered mental status noticed by the did have elevated white count meeting criteria for symptomatic UTI likely from enteric gram-negative pathogen ultrasound did not show any hydronephrosis 2-patient did have resolution of his fever white count normalized urine is growing Enterococcus faecalis. 3patient is currently being treated with oral Augmentin a 5-day course of antibiotic should be enough Dictation was produced using [employer] dictation software. please excuse any grammatical, word or spelling errors. Time with Patient: Less than 30
--- NOTE | 2025-01-05 17:29 | P.GSCN ---
History of Present Illness Consult date: 01/05/25 Reason for Consult: UTI, urinary retention History of present illness: This is an 79-year-old male admitted to the hospital for UTI, patient does have history of dementia completely history could not be obtained. He was brought into the hospital by his due to difficulty voiding and cloudy urine. He did have a Walden catheter placed with a difficulty voiding, this postvoid residual prior to catheter placement is unknown. No previous history of urinary retention, he denies any voiding difficulties at baseline. No known history of recurrent UTIs. He did have a renal bladder ultrasound done on presentation which was only significant for renal cyst, no stones or hydronephrosis was appreciated. Urine culture grew Enterococcus Review of Systems ROS unobtainable: due to mental status Past Medical History Past Medical History: Atrial Fibrillation, CVA/TIA, Dementia, Hearing Disorder / Deafness, Hyperlipidemia, Hypertension, Thyroid Disorder Additional Past Medical History / Comment(s): very [place], unsteady on feet, Parkinson's History of Any Multi-Drug Resistant Organisms: None Reported Past Surgical History: Hernia Repair, Orthopedic Surgery Additional Past Surgical History / Comment(s): Right femur surgery, thyroid biopsy, left cataract Past Anesthesia/Blood Transfusion Reactions: No Reported Reaction Past Psychological History: No Psychological Hx Reported Smoking Status: Never smoker Past Alcohol Use History: None Reported Past Drug Use History: None Reported - Past Family History Mother Family Medical History: Cancer Medications and Allergies Home Medications Medication Instructions Recorded Confirmed Type Finasteride [Proscar] 5 mg PO DAILY 11/25/14 12/31/24 History Amiodarone [Cordarone] 100 mg PO [facility] 12/21/17 12/31/24 History Carbidopa-Levodopa 25-100 mg 2 tab PO TID 08/28/18 12/31/24 History [Sinemet 25-100 mg] Donepezil HCl [Aricept] 20 mg PO HS 08/28/18 12/31/24 History Rosuvastatin [Crestor] 20 mg PO HS 06/17/21 12/31/24 History Aspirin 81 mg PO DAILY tab 12/07/21 12/31/24 Rx Cholecalciferol [Vitamin D3 (25 25 mcg PO DAILY 12/31/24 12/31/24 History Mcg = 1000 Iu)] Multivitamins, Thera [Multivitamin 1 tab PO DAILY 12/31/24 12/31/24 History (formulary)] Vit C/E/Zn/Coppr/Lutein/Zeaxan 1 cap PO BID 12/31/24 12/31/24 History [Preservision Areds 2 Softgel] amLODIPine [Norvasc] 2.5 mg PO DAILY 12/31/24 12/31/24 History Amoxic-Pot Clav 875-125Mg 1 tab PO BID 5 Days #10 tab 01/02/25 Rx [Augmentin 875-125] Allergies Allergy/AdvReac Type Severity Reaction Status Date / Time No Known Allergies Allergy Verified 12/31/24 10:39 Surgical - Exam Vital Signs Temp Pulse Resp BP Pulse Ox 97.8 F 77 18 144/77 95 12/30/24 19:33 12/30/24 19:33 12/30/24 19:33 12/30/24 19:33 12/30/24 19:33 - General no distress, no pain - Eyes normal ocular movement, no icteric - Respiratory normal expansion, normal respiratory effort - Abdomen Abdomen: soft, non tender, no distended Results - Labs 01/02/25 05:37 01/02/25 05:37 Microbiology - Last 24 Hours (Table) 12/30/24 23:05 Blood Culture - Final Blood Assessment and Plan Assessment: 79-year-old male admitted to the hospital with a UTI, also had a catheter placed for urinary retention. Difficult to obtain a complete history but it does not appear he has any previous history of urinary retention or any difficulty voiding. -Walden catheter can be removed prior to discharge, please obtain postvoid residual after catheter removal, if less than 400 mL and patient can be discharged without a Walden catheter. -Will start Flomax.
[2025-01-05] MEDS: TAMSULOSIN 0.4 MG CAP.ER.24H PO SCH (17:36)
[2025-01-06 05:25] LABS: Basophils # (A) 0.06 10*3/uL (0.00-0.10); Basophils % (A) 0.6 %; Eosinophils # (A) 0.43 10*3/uL (0.04-0.35); Eosinophils % (A) 4.6 %; HCT 38.1 % (39.6-50.0); Lymphocytes # (A) 1.72 10*3/uL (0.90-5.00); Lymphocytes % (A) 18.3 %; MCH 29.9 pg (27.0-32.0); MCHC 32.5 g/dL (32.0-37.0); MCV 91.8 fL (80.0-97.0); Monocytes # (A) 0.85 10*3/uL (0.20-1.00); Monocytes % (A) 9.0 %; Neutrophils # (A) 6.30 10*3/uL (1.80-7.70); Neutrophils % (A) 67.0 %; Platelet Count 250 10*3/uL (140-440); RBC 4.15 10*6/uL (4.40-5.60); RDW 13.2 % (11.5-14.5); WBC 9.41 10*3/uL (4.50-10.00)
[2025-01-06 05:36] LABS: HGB 12.4 g/dL (13.0-17.0)
[2025-01-06 05:53] LABS: ALT 13 U/L (4-49); AST 21 U/L (17-59); African American GFR (CKD) 88 (>60 ml/min/1.73 sqM); Albumin 2.9 g/dL (3.5-5.0); Albumin/Globulin Ratio 1.3; Alkaline Phosphatase 84 U/L (38-126); Anion Gap 7 mmol/L; Blood Urea Nitrogen 15 mg/dL (9-20); Calcium 8.9 mg/dL (8.4-10.2); Carbon Dioxide 26 mmol/L (22-30); Chloride 107 mmol/L (98-107); Globulin 2.2 g/dL; Glucose 109 mg/dL (74-99); Non-African American GFR(CKD) 76 (>60 ml/min/1.73 sqM); Potassium 3.7 mmol/L (3.5-5.1); Sodium 140 mmol/L (137-145); Total Protein 5.1 g/dL (6.3-8.2)
[2025-01-06 14:07] VITALS: BMI 27.3
--- NOTE | 2025-01-06 18:41 | P.PN ---
Progress Note - Text Progress Note Date: 01/06/25 79-year-old male with a past medical history of atrial fibrillation (on Lovenox at home), hypertension, hyperlipidemia, deafness presents with complaints of urinary retention and dysuria. Patient is a poor historian per the ER note patient was brought in by his for concerns of UTI. had stated that their insurance would not cover laboratory testing at the urgent care so were instructed to come here for further evaluation. In the ED patient underwent lab work which was significant for a white count of 12.13, neutrophils 8.82, plasma lactate 2.1 which then down trended to 1.6, and the UA was significant for large leukocyte esterase greater than 182 RBC and WBC, 2+ protein, and moderate blood. At this point patient was admitted and started on Rocephin 2 g daily as well as NS 130 cc/h. 01/01. Patient seen examined.vital signs Stable. WBCs morning is 10.89, hemoglobin 0.5, sodium 144, potassium 4.2. No acute issues overnight 01/02: Patient seen this morning. Comfortable. Tolerating his diet. A trial of DC Walden was done. Unable to void. Walden was reinserted. Patient follow-up with urology. Patient was to be discharged this evening. Unable to transfer. did come in. PT OT has been consulted. Plan to look for additional disposition. January 03: Comfortable. No new issues. piece worker is looking into rehab. January 04: Resting bed. Eating well. Was seen by PT OT. Pending going to subacute rehab. January 05: Up in recliner. Eating fair. Pending decision about rehab. January 06: Up in recliner. Comfortable. piece worker met with the patient and the . Looking into [facility] for rehab. Active Medications Amiodarone HCl (Amiodarone 100 Mg Tab) 100 mg PO SUWESA [facility] Last Admin: 01/05/25 07:43 Dose: 100 mg Amlodipine Besylate (Amlodipine 2.5 Mg Tab) 2.5 mg PO DAILY [facility] Last Admin: 01/06/25 08:38 Dose: 2.5 mg Amoxicillin/Clavulanate Potassium (Amoxic-Pot Clav 875-125mg 1 Each Tab) 1 each PO Q12HR [facility]; Protocol Last Admin: 01/06/25 08:37 Dose: 1 each Aspirin (Aspirin 81 Mg) 81 mg PO DAILY [facility] Last Admin: 01/06/25 08:37 Dose: 81 mg Atorvastatin Calcium (Atorvastatin 40 Mg Tab) 40 mg PO HS [facility] Last Admin: 01/05/25 21:54 Dose: 40 mg Carbidopa/Levodopa (Carbidopa-Levodopa 25-100 Mg 1 Each Tab) 2 each PO TID [facility] Last Admin: 01/06/25 15:59 Dose: 2 each Cholecalciferol (Cholecalciferol 25 Mcg (1000 Iu) Tablet) 25 mcg PO DAILY [facility] Last Admin: 01/06/25 08:37 Dose: 25 mcg Donepezil HCl (Donepezil 10 Mg Tab) 20 mg PO HS [facility] Last Admin: 01/05/25 21:55 Dose: 20 mg Enoxaparin Sodium (Enoxaparin 40 Mg/0.4 Ml Syringe) 40 mg SQ DAILY [facility] Last Admin: 01/06/25 08:37 Dose: 40 mg Finasteride (Finasteride 5 Mg Tab) 5 mg PO DAILY [facility] Last Admin: 01/06/25 08:37 Dose: 5 mg Multivitamins (Multivitamins, Thera 1 Each Tab) 1 each PO DAILY [facility] Last Admin: 01/06/25 08:37 Dose: 1 each Multivitamins/Minerals (Vit A,C & N-Chppgr-Oxoqiwzr 1 Each Tab) 1 each PO BID [facility] Last Admin: 01/06/25 08:38 Dose: 1 each Naloxone HCl (Naloxone 0.4 Mg/Ml 1 Ml Vial) 0.2 mg IV Q2M PRN PRN Reason: Opioid Reversal Ondansetron HCl (Ondansetron 4 Mg/2 Ml Vial) 4 mg IVP Q8HR PRN PRN Reason: Nausea And Vomiting Pantoprazole Sodium (Pantoprazole 40 Mg Tablet) 40 mg PO AC-BRKFST [facility] Last Admin: 01/06/25 08:37 Dose: 40 mg Tamsulosin HCl (Tamsulosin 0.4 Mg Cap.Er.24h) 0.4 mg PO DAILY [facility] Last Admin: 01/06/25 08:37 Dose: 0.4 mg P on examination: VITAL SIGNS: 97.4, 77, 16, 1 4791, 95% room GENERAL APPEARANCE: Up in a recliner, comfortable HEENT: Normal external appearance of nose and ear. Oral cavity normal EYES: Pupils equal. Conjunctiva normal. NECK: JVD not raised. Mass not palpable. RESPIRATORY: Respiratory effort normal. Lungs clear to auscultation. CARDIOVASCULAR: First and second sounds normal. No edema. ABDOMEN: Soft. Liver and spleen not palpable. No tenderness. No mass palpable. PSYCHIATRY: Able to answer simple questions. Mood affect normal INVESTIGATIONS, reviewed in the clinical context: January 06: White count 9.4 hemoglobin 12.4 potassium 3.7 creatinine 0.95 January 02: White count 10.0 hemoglobin 12.3 platelets 193 sodium 142 potassium 3.9 creatinine 1.0 Assessment and plan -Acute UTI with cystitis secondary to Enterococcus faecalis: Received IV ceftriaxone. 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 Failed trial of DC Walden. Walden catheter reinserted Proscar Seen by Dr. Anaya from urology. He DC trial of Walden catheter again. # Essential hypertension Amlodipine #Atrial fibrillation #Hyperlipidemia Crestor 20 mg nightly - Moderate-severe cognitive impairment from late onset Alzheimer's dementia Aricept - Parkinson's disease Sinemet -Acute medical debility. Looking for rehab PT OT on the case Per social welfare clerk patient being evaluated for rehab at [facility]
--- NOTE | 2025-01-07 17:20 | P.PN ---
Subjective Progress Note Date: 01/06/25 Principal diagnosis: Reason for follow-up with UTI Patient is a 79-year-old male with a past medical history significant for CVA TIA hypertension hyperlipidemia atrial fibrillation patient has been brought into the hospital concerning for a urinary tract infection and the patient noted to have significantly cloudy urine along with mental status changes white count positive UA concerning for UTI. On today's evaluation that is 01/06/2025, patient has been afebrile, patient is breathing comfortably and is currently on room air, patient denies having any chest pain and cough, patient denies nausea vomiting or diarrhea and no abdominal pain Patient with normalized to 9.41, creatinine 0.95 Objective - Vital Signs Vital signs: Vital Signs Temp 97.9 F 01/06/25 06:59 Pulse 60 01/06/25 06:59 Resp 16 01/06/25 06:59 BP 130/74 01/06/25 06:59 Pulse Ox 92 L 01/06/25 06:59 FiO2 Intake & Output 01/05/25 01/06/25 01/06/25 18:59 06:59 18:59 Intake Total 600 Output Total 350 1250 Balance -350 -650 Intake: Other 600 Output: Urine 350 1250 Uretheral (Walden) 250 Other: Voiding Method Indwelling Catheter Indwelling Catheter Indwelling Catheter # Voids 1 # Bowel Movements 1 - Exam GENERAL DESCRIPTION: An elderly male lying in bed in no distress RESPIRATORY SYSTEM: Unlabored breathing , decreased breath sounds at bases HEART: S1 S2 regular rate and rhythm , ABDOMEN: Soft , no tenderness EXTREMITIES: No edema feet - Labs CBC & Chem 7: 01/06/25 04:44 01/06/25 04:44 Labs: Abnormal Lab Results - Last 24 Hours (Table) 01/06/25 01/06/25 Range/Units 04:44 04:44 RBC 4.15 L (4.40-5.60) 10*6/uL Hgb 12.4 L D (13.0-17.0) g/dL Hct 38.1 L (39.6-50.0) % Immature Gran # 0.05 H (0.00-0.04) 10*3/uL Eosinophils # 0.43 H (0.04-0.35) 10*3/uL Glucose 109 H (74-99) mg/dL Total Protein 5.1 L (6.3-8.2) g/dL Albumin 2.9 L (3.5-5.0) g/dL Assessment and Plan (1) UTI (urinary tract infection) Current Visit: Yes Status: Acute Code(s): N39.0 - URINARY TRACT INFECTION, SITE NOT SPECIFIED SNOMED Code(s): 82164956 (2) Leukocytosis Current Visit: Yes Status: Acute Code(s): D72.829 - ELEVATED WHITE BLOOD CELL COUNT, UNSPECIFIED SNOMED Code(s): 018715531 (3) Urinary retention Current Visit: Yes Status: Acute Code(s): R33.9 - RETENTION OF URINE, UNSPECIFIED SNOMED Code(s): 368678958 (4) Weakness Current Visit: Yes Status: Acute Code(s): R53.1 - WEAKNESS SNOMED Code(s): 04353545 Plan: 1patient presented to hospital with weakness cloudy urine did have difficulty urination some confusion/altered mental status noticed by the did have elevated white count meeting criteria for symptomatic UTI likely from enteric gram-negative pathogen ultrasound did not show any hydronephrosis 2-patient did have resolution of his fever white count normalized urine is growing Enterococcus faecalis. 3patient to continue with oral Augmentin and monitor clinical course closely Dictation was produced using [employer] dictation software. please excuse any grammatical, word or spelling errors. Time with Patient: Less than 30
--- NOTE | 2025-01-07 17:21 | P.PN ---
Subjective Progress Note Date: 01/07/25 Principal diagnosis: Reason for follow-up with UTI Patient is a 79-year-old male with a past medical history significant for CVA TIA hypertension hyperlipidemia atrial fibrillation patient has been brought into the hospital concerning for a urinary tract infection and the patient noted to have significantly cloudy urine along with mental status changes white count positive UA concerning for UTI. On today's evaluation that is 01/07/2025, Patient is afebrile this morning patient denies having any chest pain shortness of breath or cough, the patient is currently on room air, patient denies any abdominal pain no diarrhea no nausea no vomiting. Complaint today blood culture negative Objective - Vital Signs Vital signs: Vital Signs Temp 98.1 F 01/07/25 07:08 Pulse 73 01/07/25 07:08 Resp 18 01/07/25 07:08 BP 173/93 01/07/25 07:08 Pulse Ox 96 01/07/25 07:08 FiO2 Intake & Output 01/06/25 01/07/25 01/07/25 18:59 06:59 18:59 Intake Total 1620 280 Output Total 380 850 Balance 1240 -570 Weight 93.894 kg Intake: Oral 1620 280 Output: Urine 380 700 Post Void Residual 150 Other: Voiding Method Indwelling Catheter Urinal # Voids 2 # Bowel Movements 1 1 - Exam GENERAL DESCRIPTION: An elderly male lying in bed in no distress RESPIRATORY SYSTEM: Unlabored breathing , decreased breath sounds at bases HEART: S1 S2 regular rate and rhythm , ABDOMEN: Soft , no tenderness EXTREMITIES: No edema feet - Labs CBC & Chem 7: 01/06/25 04:44 01/06/25 04:44 Assessment and Plan (1) UTI (urinary tract infection) Current Visit: Yes Status: Acute Code(s): N39.0 - URINARY TRACT INFECTION, SITE NOT SPECIFIED SNOMED Code(s): 83450402 (2) Leukocytosis Current Visit: Yes Status: Acute Code(s): D72.829 - ELEVATED WHITE BLOOD CELL COUNT, UNSPECIFIED SNOMED Code(s): 264072712 (3) Urinary retention Current Visit: Yes Status: Acute Code(s): R33.9 - RETENTION OF URINE, UNSPECIFIED SNOMED Code(s): 407388042 (4) Weakness Current Visit: Yes Status: Acute Code(s): R53.1 - WEAKNESS SNOMED Code(s): 21875545 Plan: 1patient presented to hospital with weakness cloudy urine did have difficulty urination some confusion/altered mental status noticed by the did have elevated white count meeting criteria for symptomatic UTI likely from enteric gram-negative pathogen ultrasound did not show any hydronephrosis 2-patient did have resolution of his fever white count normalized urine is growing Enterococcus faecalis. 3patient seem to have shown clinical improvement to continue with oral Augmentin and monitor clinical course closely Dictation was produced using [employer] dictation software. please excuse any grammatical, word or spelling errors. Time with Patient: Less than 30
--- NOTE | 2025-01-07 19:51 | P.PN ---
Progress Note - Text Progress Note Date: 01/07/25 79-year-old male with a past medical history of atrial fibrillation (on Lovenox at home), hypertension, hyperlipidemia, deafness presents with complaints of urinary retention and dysuria. Patient is a poor historian per the ER note patient was brought in by his for concerns of UTI. had stated that their insurance would not cover laboratory testing at the urgent care so were instructed to come here for further evaluation. In the ED patient underwent lab work which was significant for a white count of 12.13, neutrophils 8.82, plasma lactate 2.1 which then down trended to 1.6, and the UA was significant for large leukocyte esterase greater than 182 RBC and WBC, 2+ protein, and moderate blood. At this point patient was admitted and started on Rocephin 2 g daily as well as NS 130 cc/h. 01/01. Patient seen examined.vital signs Stable. WBCs morning is 10.89, hemoglobin 0.5, sodium 144, potassium 4.2. No acute issues overnight 01/02: Patient seen this morning. Comfortable. Tolerating his diet. A trial of DC Walden was done. Unable to void. Walden was reinserted. Patient follow-up with urology. Patient was to be discharged this evening. Unable to transfer. did come in. PT OT has been consulted. Plan to look for additional disposition. January 03: Comfortable. No new issues. food prep worker is looking into rehab. January 04: Resting bed. Eating well. Was seen by PT OT. Pending going to subacute rehab. January 05: Up in recliner. Eating fair. Pending decision about rehab. January 06: Up in recliner. Comfortable. food prep worker met with the patient and the . Looking into [facility] for rehab. January 07: In bed. Came to get discharge. Social work working on [facility] rehab. Walden was discontinued last night. Has been voiding well. Active Medications Amiodarone HCl (Amiodarone 100 Mg Tab) 100 mg PO SUWESA [facility] Last Admin: 01/05/25 07:43 Dose: 100 mg Amlodipine Besylate (Amlodipine 2.5 Mg Tab) 2.5 mg PO DAILY [facility] Last Admin: 01/07/25 08:05 Dose: 2.5 mg Amoxicillin/Clavulanate Potassium (Amoxic-Pot Clav 875-125mg 1 Each Tab) 1 each PO Q12HR [facility]; Protocol Last Admin: 01/07/25 08:02 Dose: 1 each Aspirin (Aspirin 81 Mg) 81 mg PO DAILY [facility] Last Admin: 01/07/25 08:05 Dose: 81 mg Atorvastatin Calcium (Atorvastatin 40 Mg Tab) 40 mg PO HS [facility] Last Admin: 01/06/25 19:48 Dose: 40 mg Carbidopa/Levodopa (Carbidopa-Levodopa 25-100 Mg 1 Each Tab) 2 each PO TID [facility] Last Admin: 01/07/25 17:26 Dose: 2 each Cholecalciferol (Cholecalciferol 25 Mcg (1000 Iu) Tablet) 25 mcg PO DAILY [facility] Last Admin: 01/07/25 08:02 Dose: 25 mcg Donepezil HCl (Donepezil 10 Mg Tab) 20 mg PO HS [facility] Last Admin: 01/06/25 19:48 Dose: 20 mg Enoxaparin Sodium (Enoxaparin 40 Mg/0.4 Ml Syringe) 40 mg SQ DAILY [facility] Last Admin: 01/07/25 08:05 Dose: 40 mg Finasteride (Finasteride 5 Mg Tab) 5 mg PO DAILY [facility] Last Admin: 01/07/25 08:02 Dose: 5 mg Multivitamins (Multivitamins, Thera 1 Each Tab) 1 each PO DAILY [facility] Last Admin: 01/07/25 08:04 Dose: 1 each Multivitamins/Minerals (Vit A,C & K-Cxyeax-Zlcgxsdf 1 Each Tab) 1 each PO BID [facility] Last Admin: 01/07/25 08:05 Dose: 1 each Naloxone HCl (Naloxone 0.4 Mg/Ml 1 Ml Vial) 0.2 mg IV Q2M PRN PRN Reason: Opioid Reversal Ondansetron HCl (Ondansetron 4 Mg/2 Ml Vial) 4 mg IVP Q8HR PRN PRN Reason: Nausea And Vomiting Pantoprazole Sodium (Pantoprazole 40 Mg Tablet) 40 mg PO AC-BRKFST [facility] Last Admin: 01/07/25 08:05 Dose: 40 mg Tamsulosin HCl (Tamsulosin 0.4 Mg Cap.Er.24h) 0.4 mg PO DAILY [facility] Last Admin: 01/07/25 08:05 Dose: 0.4 mg P on examination: VITAL SIGNS: 97.7, 73, 18, 163 x 88, 97% room air GENERAL APPEARANCE: Resting in bed e HEENT: Normal external appearance of nose and ear. Oral cavity normal EYES: Pupils equal. Conjunctiva normal. NECK: JVD not raised. Mass not palpable. RESPIRATORY: Respiratory effort normal. Lungs clear to auscultation. CARDIOVASCULAR: First and second sounds normal. No edema. ABDOMEN: Soft. Liver and spleen not palpable. No tenderness. No mass palpable. PSYCHIATRY: Able to answer simple questions. Mood affect normal INVESTIGATIONS, reviewed in the clinical context: January 06: White count 9.4 hemoglobin 12.4 potassium 3.7 creatinine 0.95 January 02: White count 10.0 hemoglobin 12.3 platelets 193 sodium 142 potassium 3.9 creatinine 1.0 Assessment and plan -Acute UTI with cystitis secondary to Enterococcus faecalis: Received IV ceftriaxone. On Augmentin -Bladder outflow obstruction from BPH. Failed trial of DC Walden. Walden catheter reinserted Proscar Seen by Dr. Anaya from urology. Repeat trial of DC Walden on January 06 successful. Patient voiding well. # Essential hypertension Amlodipine #Atrial fibrillation #Hyperlipidemia Crestor 20 mg nightly - Moderate-severe cognitive impairment from late onset Alzheimer's dementia Aricept - Parkinson's disease Sinemet -Acute medical debility. Looking for rehab PT OT on the case Per social studies department chair patient being evaluated for rehab at [facility] Pending to go to rehab. Voiding well.
[2025-01-08 08:07] VITALS: BP 159/73; PULSE 60; RESP 16; TEMP 98
--- NOTE | 2025-01-08 13:45 | P.DS ---
Providers Date of admission: 12/31/24 01:27 Expected date of discharge: 01/08/25 Attending physician: Morgan Dang Consults: 12/31/24 14:21 Consult Physician Routine Consulting Provider: Sarah Alcantar Consult Reason/Comments: UTI Do you want consulting provider notified?: Yes 01/03/25 16:57 Consult Physician Routine Consulting Provider: Yohannes Anaya Consult Reason/Comments: urinary retention Do you want consulting provider notified?: Already Contacted Primary care physician: [facility] Course: 79-year-old male with a past medical history of atrial fibrillation (on Lovenox at home), hypertension, hyperlipidemia, deafness presents with complaints of urinary retention and dysuria. Patient is a poor historian per the ER note patient was brought in by his for concerns of UTI. had stated that their insurance would not cover laboratory testing at the urgent care so were instructed to come here for further evaluation. In the ED patient underwent lab work which was significant for a white count of 12.13, neutrophils 8.82, plasma lactate 2.1 which then down trended to 1.6, and the UA was significant for large leukocyte esterase greater than 182 RBC and WBC, 2+ protein, and moderate blood. At this point patient was admitted and started on Rocephin 2 g daily as well as NS 130 cc/h. 01/01. Patient seen examined.vital signs Stable. WBCs morning is 10.89, hemoglobin 0.5, sodium 144, potassium 4.2. No acute issues overnight 01/02: Patient seen this morning. Comfortable. Tolerating his diet. A trial of DC Charles was done. Unable to void. Charles was reinserted. Patient follow-up with urology. Patient was to be discharged this evening. Unable to transfer. did come in. PT OT has been consulted. Plan to look for additional disposition. January 03: Comfortable. No new issues. conversion worker is looking into rehab. January 04: Resting bed. Eating well. Was seen by PT OT. Pending going to subacute rehab. January 05: Up in recliner. Eating fair. Pending decision about rehab. January 06: Up in recliner. Comfortable. conversion worker met with the patient and the . Looking into [facility] for rehab. January 07: In bed. Came to get discharge. Social work working on [facility] rehab. Charles was discontinued last night. Has been voiding well. January 08: Stable. Comfortable. Eating well. Voiding well. Augmentin will be discontinued today. Going to rehab at [facility] today. P on examination: VITAL SIGNS: 98, 60, 16, 159 x 73, 95% room air GENERAL APPEARANCE: Calm Trevor HEENT: Normal external appearance of nose and ear. Oral cavity normal EYES: Pupils equal. Conjunctiva normal. NECK: JVD not raised. Mass not palpable. RESPIRATORY: Respiratory effort normal. Lungs clear to auscultation. CARDIOVASCULAR: First and second sounds normal. No edema. ABDOMEN: Soft. Liver and spleen not palpable. No tenderness. No mass palpable. PSYCHIATRY: Able to answer simple questions. Mood affect normal INVESTIGATIONS, reviewed in the clinical context: January 06: White count 9.4 hemoglobin 12.4 potassium 3.7 creatinine 0.95 January 02: White count 10.0 hemoglobin 12.3 platelets 193 sodium 142 potassium 3.9 creatinine 1.0 Assessment and plan -Acute UTI with cystitis secondary to Enterococcus faecalis: Received IV ceftriaxone. On Augmentin-lasted today -Bladder outflow obstruction from BPH. Failed trial of DC Charles. Charles catheter reinserted Proscar Seen by Dr. Anaya from urology. Repeat trial of DC Charles on January 06 successful. Patient voiding well. # Essential hypertension Amlodipine #Atrial fibrillation #Hyperlipidemia Crestor 20 mg nightly - Moderate-severe cognitive impairment from late onset Alzheimer's dementia Aricept - Parkinson's disease Sinemet -Acute medical debility. Looking for rehab PT OT on the case rehab at [facility] Disposition: Rehab at [facility] Plan - Discharge Summary New Discharge Prescriptions: New Tamsulosin [Flomax] 0.4 mg PO DAILY cap Continue Finasteride [Proscar] 5 mg PO DAILY Amiodarone [Cordarone] 100 mg PO SUWESA Carbidopa-Levodopa 25-100 mg [Sinemet 25-100 mg] 2 tab PO TID Donepezil HCl [Aricept] 20 mg PO HS Aspirin 81 mg PO DAILY tab Vit C/E/Zn/Coppr/Lutein/Zeaxan [Preservision Areds 2 Softgel] 1 cap PO BID Multivitamins, Thera [Multivitamin (formulary)] 1 tab PO DAILY amLODIPine [Norvasc] 2.5 mg PO DAILY Rosuvastatin [Crestor] 20 mg PO HS Cholecalciferol [Vitamin D3 (25 Mcg = 1000 Iu)] 25 mcg PO DAILY Discontinued cefuroxime axetiL [Ceftin] 500 mg PO DIRECTED Discharge Medication List Finasteride [Proscar] 5 mg PO DAILY 11/25/14 [History] Amiodarone [Cordarone] 100 mg PO SUWESA 12/21/17 [History] Carbidopa-Levodopa 25-100 mg [Sinemet 25-100 mg] 2 tab PO TID 08/28/18 [History] Donepezil HCl [Aricept] 20 mg PO HS 08/28/18 [History] Rosuvastatin [Crestor] 20 mg PO HS 06/17/21 [History] Aspirin 81 mg PO DAILY tab 12/07/21 [Rx] Cholecalciferol [Vitamin D3 (25 Mcg = 1000 Iu)] 25 mcg PO DAILY 12/31/24 [History] Multivitamins, Thera [Multivitamin (formulary)] 1 tab PO DAILY 12/31/24 [History] Vit C/E/Zn/Coppr/Lutein/Zeaxan [Preservision Areds 2 Softgel] 1 cap PO BID 12/31/24 [History] amLODIPine [Norvasc] 2.5 mg PO DAILY 12/31/24 [History] Tamsulosin [Flomax] 0.4 mg PO DAILY cap 01/08/25 [Rx] Follow up Appointment(s)/Referral(s): Hugh Winters DO [Primary Care Provider] - 1-2 days Yoel Hua MD [STAFF PHYSICIAN] - 1 Week (follow-up with urology if patient needs to go home with a charles catheter for retention) Patient Instructions/Handouts: Urinary Retention in Men (GEN), Urinary Tract Infection in Men (DC)
--- NOTE | 2025-01-09 08:35 | P.PN ---
Subjective Progress Note Date: 01/08/25 Principal diagnosis: Reason for follow-up with UTI Patient is a 79-year-old male with a past medical history significant for CVA TIA hypertension hyperlipidemia atrial fibrillation patient has been brought into the hospital concerning for a urinary tract infection and the patient noted to have significantly cloudy urine along with mental status changes white count positive UA concerning for UTI. On today's evaluation that is 01/08/2025,the patient denies any fever or any chills, patient is breathing comfortably on room air, the patient denies chest pain shortness of breath and no significant cough, patient denies abdominal pain, no nausea vomiting or diarrhea. Patient white count normal of 9.41 as of 01/06/2025 no new labs has been obtained today blood culture have been negative Objective - Vital Signs Vital signs: Vital Signs Temp 98.0 F 01/08/25 07:17 Pulse 60 01/08/25 07:17 Resp 16 01/08/25 07:17 BP 159/73 01/08/25 07:17 Pulse Ox 95 01/08/25 07:17 FiO2 Intake & Output 01/07/25 01/08/25 01/08/25 18:59 06:59 18:59 Intake Total 1080 120 Output Total 200 500 Balance 880 -380 Intake: Oral 1080 120 Output: Urine 200 500 Other: Voiding Method Urinal Urinal Urinal Diaper Diaper Diaper # Voids 3 # Bowel Movements 1 - Exam GENERAL DESCRIPTION: An elderly male lying in bed in no distress RESPIRATORY SYSTEM: Unlabored breathing , decreased breath sounds at bases HEART: S1 S2 regular rate and rhythm , ABDOMEN: Soft , no tenderness EXTREMITIES: No edema feet - Labs CBC & Chem 7: 01/06/25 04:44 01/06/25 04:44 Assessment and Plan (1) UTI (urinary tract infection) Status: Acute Code(s): N39.0 - URINARY TRACT INFECTION, SITE NOT SPECIFIED SNOMED Code(s): 56959031 (2) Leukocytosis Status: Acute Code(s): D72.829 - ELEVATED WHITE BLOOD CELL COUNT, UNSPECIFIED SNOMED Code(s): 843623666 (3) Urinary retention Status: Acute Code(s): R33.9 - RETENTION OF URINE, UNSPECIFIED SNOMED Code(s): 627662855 (4) Weakness Status: Acute Code(s): R53.1 - WEAKNESS SNOMED Code(s): 25679956 Plan: 1patient presented to hospital with weakness cloudy urine did have difficulty urination some confusion/altered mental status noticed by the did have elevated white count meeting criteria for symptomatic UTI likely from enteric gram-negative pathogen ultrasound did not show any hydronephrosis 2-patient did have resolution of his fever white count normalized urine is growing Enterococcus faecalis. 3patient has been afebrile white count has been normal, patient to to continue with oral Augmentin to finish a total 7-day course of therapy Dictation was produced using [employer] dictation software. please excuse any grammatical, word or spelling errors. Time with Patient: Less than 30
== END 2025-01-08 13:07 | DRG 689 ==
LOC: EC 19:21 → 5NMEDONC 12-31 01:27
PROVIDERS: ADMIT Hospitalist; ATTEND Hospitalist
DX: N30.90 Cystitis, unspecified without hematuria (principal); G93.41 Metabolic encephalopathy; B95.2 Enterococcus as the cause of diseases classified elsewhere; I48.91 Unspecified atrial fibrillation; E07.9 Disorder of thyroid, unspecified; G30.1 Alzheimer's disease with late onset; G20.A1 Parkinson's disease without dyskinesia, without mention of fluctuations; I10 Essential (primary) hypertension; F02.80 Dementia in other diseases classified elsewhere, unspecified severity, without behavioral disturbance, psychotic disturbance, mood disturbance, and anxiety; E78.5 Hyperlipidemia, unspecified; H91.90 Unspecified hearing loss, unspecified ear; R53.81 Other malaise; N28.1 Cyst of kidney, acquired; N40.1 Benign prostatic hyperplasia with lower urinary tract symptoms; N32.0 Bladder-neck obstruction; Z79.82 Long term (current) use of aspirin; Z79.01 Long term (current) use of anticoagulants; Z79.899 Other long term (current) drug therapy; Z86.73 Personal history of transient ischemic attack (TIA), and cerebral infarction without residual deficits
CPT/HCPCS: 36415; 51702; 76770; 80053; 81001; 83605; 83735; 84100; 85025; 87040; 87077; 87086; 87186; 96361; 96365; 96375; 99285